=== PATIENT | female | born 1955 | race Two or more races ===

== ENCOUNTER 2020-03-05 13:43 | Outpatient (REF) | payer MEDICAID, SELFPAY ==
--- NOTE | 2020-03-05 13:47 | MM_ITS ---
EXAMINATION: MM SCREENING DIGITAL BREAST TOMOSYNTHESIS, BILATERAL CLINICAL INFORMATION: Screening. Asymptomatic. The lifetime risk of breast cancer based on the Tyrer-Cuzick Model is 5%. COMPARISON: Mammography: 09/16/2018, 08/10/2017, 08/08/2016 TECHNIQUE: Digital breast tomosynthesis is performed in both the craniocaudal and mediolateral oblique views along with computer-aided detection (CAD). Synthesized 2D images are generated from the tomosynthesis. FINDINGS: The breasts are almost entirely fatty (ACR BI-RADS breast composition Category a). Background stromal densities are similar to prior exams. The right breast shows no interval mass or architectural abnormality. There are scattered benign round calcifications, more numerous on right. No suspicious calcifications. The axilla are unremarkable. There is a 4 x 5 mm nodule close to skin posterior 3:30 o'clock position 11 cm from nipple with ill-defined margins. The location may suggest an overlying dermal lesion or an intradermal sebaceous cyst. Patient will be recalled for additional imaging. MM/MM tomosynthesis screening BI IMPRESSION: 1. Left: 5 mm nodule posterior 3:30 o'clock position, close to skin, possibly dermal or intradermal. 2. Right: No mammographic evidence of malignancy. ASSESSMENT: BI-RADS 0: Incomplete - Need Additional Imaging Evaluation RECOMMENDATION: 1. Assess for dermal lesion in the area and obtain images with mole marker if applicable. 2. Targeted ultrasound if warranted after review of the additional views. 3. Radiology department staff will contact the patient for additional imaging. This patient's information was entered into a reminder system with a target due date for their next mammogram.
== END 2020-03-05 13:44 | disposition home or self-care (01) ==
LOC: HO.MAMMO 13:43
PROVIDERS: PCP Internal Medicine; Visit Provider Internal Medicine
DX: Z12.31 Encounter for screening mammogram for malignant neoplasm of breast (principal)
CPT/HCPCS: 77063; 77067

== ENCOUNTER 2020-03-10 11:13 | Inpatient (IN) | payer MEDICAID, SELFPAY ==
[2020-03-10] VITALS (9 sets, daily range): BP systolic 114–160; BP diastolic 55–94; PULSE 111–126; RESP 16–22; TEMP 37.1–37.8; O2SAT 97–100; BMI 41.1
--- NOTE | 2020-03-10 11:52 | XR_ITS ---
EXAMINATION: XR CHEST CLINICAL INFORMATION: Productive cough COMPARISON: None TECHNIQUE: AP portable view of the chest was obtained. FINDINGS: There is a region of parenchymal disease seen at the left base which may be related to atelectasis or pneumonitis versus small amount of pleural fluid. Heart normal size. No evidence of pulmonary edema. No pneumothorax. Degenerative change of shoulders evident. XR/XR chest 1V IMPRESSION: Region of density left base.
--- NOTE | 2020-03-10 11:53 | ECG_ITS ---
Test Reason : TACHYCARDIA Blood Pressure : / mmHG Vent. Rate : 117 BPM Atrial Rate : 117 BPM P-R Int : 140 ms QRS Dur : 084 ms QT Int : 308 ms P-R-T Axes : 039 026 043 degrees QTc Int : 429 ms Sinus tachycardia Otherwise normal ECG No previous ECGs available Referred By: Yue Nassar Electronically Signed By:KEITH VILLARREAL MD
--- NOTE | 2020-03-10 11:59 | ED_ITS ---
HPI - URI/Sore Throat General Chief Complaint: Nausea/Vomiting/Diarrhea <DONTA Hutchinson Last Filed: 03/10/20 17:05> Stated Complaint: vomiting <DONTA Hutchinson Last Filed: 03/10/20 17:05> Time Seen by Provider: 03/10/20 11:46 <DONTA Hutchinson Last Filed: 03/10/20 17:05> Source: patient <DONTA Hutchinson Last Filed: 03/10/20 17:05> Mode of arrival: ambulatory <DONTA Hutchinson Last Filed: 03/10/20 17:05> Limitations: language barrier ( Israeli-speaking) <DONTA Hutchinson Last Filed: 03/10/20 17:05> History of Present Illness HPI Narrative: 65yoF c PMHx of DM and asthma presenting to the ED c c/o productive cough c post-tussive emesis x 3 weeks. denies fevers, dizziness, headaches, bilious emesis, chest pain, shortness of breath, dyspnea on exertion, orthopnea, paresthesias, abdominal pain, dysuria, diarrhea or constipation. Denies recent sick contacts or travel. Denies any other symptom complaints or concerns at this time. <DONTA Hutchinson Last Filed: 03/10/20 17:05> Related Data Home Medications: Home Medications Medication Instructions Recorded Confirmed Blood Pressure Med 25 mg DAILY 03/10/20 Blood Pressure Med DAILY 03/10/20 Cholesterol Med DAILY 03/10/20 Vitamin D3 DAILY 03/10/20 insulin glargine [Lantus U-100 35 unit SUBCUT DAILY 03/10/20 03/10/20 Insulin] metformin 500 mg BID 03/10/20 03/10/20 <DONTA Hutchinson Last Filed: 03/10/20 17:05> Allergies/Adverse Reactions: Allergies Allergy/AdvReac Type Severity Reaction Status Date / Time No Known Allergies Allergy Verified 03/10/20 22:06 <DONTA Hutchinson Last Filed: 03/10/20 17:05> Review of Systems Review of Systems: Constitutional : No Fever, No Chills, No fatigue, No Malaise ENT/Mouth : No sore throat, No runny nose Eyes: No Discharge Cardiovascular : No Chest Pain, No SOB, No orthopnea, No RICHARDS Respiratory : + Cough, + Sputum, No Wheezing, No Smoke Exposure, No Dyspnea Gastrointestinal : No Nausea, No Vomiting, No Diarrhea Genitourinary : No irregular bleeding, No Dysuria, No Urinary Frequency, No Hematuria, No Urinary Incontinence, No Urgency, No Flank Pain, Musculoskeletal : No Myalgia Skin : No rash Neuro : No Headache <DONTA Hutchinson - Last Filed: 03/10/20 17:05> Yes all other systems are reviewed and are negative <DONTA Hutchinson - Last Filed: 03/10/20 17:05> [facility] Past Medical History Attestation statement: The following information was validated with the patient. <DONTA Hutchinson - Last Filed: 03/10/20 17:05> Medical History: Medical History (Updated 03/10/20 @ 20:41 by DONTA Starr) Asthma Diabetes Hyperlipidemia Hypertension <DONTA Hutchinson - Last Filed: 03/10/20 17:05> Surgical History: Surgical History (Updated 03/10/20 @ 20:38 by DONTA Starr) H/O section <DONTA Hutchinson - Last Filed: 03/10/20 17:05> Social History Social History: Social History (Updated 03/10/20 @ 20:39 by DONTA Starr) Alcohol intake: current Alcohol intake frequency: a few times a month Alcohol type: beer Smoking Status: Never smoker Smoked in Last 30 Days: No Use of substances other than those prescribed or required for medical reasons: No Advance Directives: No Advance Directives Information Provided: No <DONTA Hutchinson - Last Filed: 03/10/20 17:05> Physical Exam Vital Signs: Vital Signs: Last Vital Signs Temp 98.9 F 03/10/20 22:19 Pulse 118 H 03/10/20 22:19 Resp 16 03/10/20 22:19 BP 151/55 H 03/10/20 22:19 Pulse Ox 97 03/10/20 22:19 Body Mass Index 41.1 vital signs have been reviewed as normal and appeared to be correct. Blood pressure normal. Heart rate normal. Respiration rate normal. Temperature normal. Oxygen saturation normal. <DONTA Hutchinson - Last Filed: 03/10/20 17:05> Vital Signs: Last Vital Signs Temp 98.9 F 03/10/20 22:19 Pulse 118 H 03/10/20 22:19 Resp 16 03/10/20 22:19 BP 151/55 H 03/10/20 22:19 Pulse Ox 97 03/10/20 22:19 Body Mass Index 41.1 <Lala Dumont NP - Last Filed: 03/10/20 22:20> Vital Signs: Last Vital Signs Temp 98.9 F 03/10/20 22:19 Pulse 118 H 03/10/20 22:19 Resp 16 03/10/20 22:19 BP 151/55 H 03/10/20 22:19 Pulse Ox 97 03/10/20 22:19 Body Mass Index 41.1 <Samantha Hathaway MD - Last Filed: 03/10/20 22:26> Appearance: Alert. Oriented X3. No acute distress. Head: Normal external exam. Normocephalic. Atraumatic. Eyes: PERRLA. EOMI. Conjunctiva and sclera normal. Eyelids normal. ENT: Pharynx normal. Uvula midline. Moist mucous membranes. Neck: Normal inspection. Neck supple. FROM. No adenopathy. No meningeal signs. CVS: Normal heart rate and rhythm. Heart sound normal. No murmurs noted. Pulses normal throughout. Respiratory: No respiratory distress. Painless inspiration. Breath sounds normal. No wheezes/rales/rhonchi noted. Chest nontender. No accessory muscle usage noted or decreased air movement noted. Back: Full range of motion noted. Skin: Skin warm and dry. Normal skin color. Normal skin turgor. No rashes/lesions/lacerations noted. Extremities: +1 b/l pitting edema of lower extremity. Extremities exhibit normal range of motion. Extremities nontender. Neuro: Oriented X 3. No motor deficit. No sensory deficit. Reflexes normal. <DONTA Hutchinson - Last Filed: 03/10/20 17:05> Course Course Course Narrative: 11:52AM - 65yoF c PMHx of DM and asthma presenting to the ED c c/o productive cough c post-tussive emesis x 3 weeks. - Concern for PNA vs COVID-19 vs CHF vs PE. - Plan: Labs, CXR, EKG, COVID/RSV/FLU then Re-evaluate. <DONTA Hutchinson - Last Filed: 03/10/20 17:05> I assisted nurse practitioner Tim with the paracentesis. Patient tolerated well the procedure. No complications <Samantha Hathaway MD - Last Filed: 03/10/20 22:26> Reevaluation(s) Reevaluation #1: patient had an elevated white blood cell count and was tachycardic therefore blood cultures and lactic acid ordered at this time. Along with cefepime for possible pneumonia. <DONTA Hutchinson - Last Filed: 03/10/20 17:05> Time: 12:36 <DONTA Hutchinson - Last Filed: 03/10/20 17:05> Reevaluation #2: - patient with anemia. D-dimer elevated. BUN/creatinine at 24/1.51 otherwise all other labs are within normal limits. COVID swab/RSV/ flu negative. - Due to D-dimer being elevated and patient having an elevated creatinine and CT scan of chest without contrast obtained and revealed large volume ascites mo derate size left pleural effusion with left base parenchymal disease likely related to passive atelectasis. Therefore I went back in and explained to the patient that she will need to be tapped. She reports that she is a drinker on the weekends approximately 5-6 beers every weekend. - V/Q scan negative for PE. <DONTA Hutchinson - Last Filed: 03/10/20 17:05> Time: 17:02 <DONTA Hutchinson - Last Filed: 03/10/20 17:05> Reevaluation #3: At this time I am signing out to YA Reeves her and Dr. Samantha Carey's will perform the tap and possibly admit the patient depending on what is obtained from the tap. Patient understands and agrees with this plan. <DONTA Hutchinson - Last Filed: 03/10/20 17:05> Time: 17:04 <DONTA Hutchinson - Last Filed: 03/10/20 17:05> Procedures Paracentesis Time Out Performed: Yes <Samantha Hathaway MD - Last Filed: 03/10/20 22:26> Local Anesthetic: lidocaine 2% <Samantha Hathaway MD - Last Filed: 03/10/20 22:26> Amount of anesthesia used (mL): 10 <Samantha Hathaway MD - Last Filed: 03/10/20 22:26> Fluid: bloody <Samantha Hathaway MD - Last Filed: 03/10/20 22:26> Post Procedure Exam: awake, alert and normal BP <Samantha Hathaway MD - Last Filed: 03/10/20 22:26> Patient Tolerated Procedure: well and no complications <Samantha Hathaway MD - Last Filed: 03/10/20 22:26> Complications: none <Samantha Hathaway MD - Last Filed: 03/10/20 22:26> MDM - URI/Sore Throat Medical Records Attestation: I reviewed the patient's medical records. <DONTA Hutchinson - Last Filed: 03/10/20 17:05> Lab Data Attestation: I reviewed the patient's lab results. <DONTA Hutchinson - Last Filed: 03/10/20 17:05> Result diagrams: : 03/10/20 12:08 03/10/20 12:08 <DONTA Hutchinson - Last Filed: 03/10/20 17:05> Labs: Lab Results 03/10/20 03/10/20 03/10/20 Range/Units 12:08 12:08 12:08 WBC 18.1 H (4.8-10.8) X10*3/uL RBC 3.14 L (4.20-5.50) X10*6/uL Hgb 8.8 L (12.0-16.0) g/dl Hct 27.7 L (37-47) % MCV 88.2 (80-98) fL MCH 28.0 (27.0-33.0) pg MCHC 31.8 (31.0-35.0) g/dl RDW 15.5 (11.0-16.0) % Plt Count 396 (160-400) X10*3/uL MPV 9.8 (9.4-12.3) fL Immature Gran % (Auto) 0.4 (0.0-0.4) % Neut % (Auto) 79.1 H (45-73) % Lymph % (Auto) 14.0 L (20-40) % [place] % (Auto) 6.1 (2-11) % Eos % (Auto) 0.2 (0-4) % Baso % (Auto) 0.2 (0-2) % Lymph # (Auto) 2.5 (1.2-4.9) X10*3/uL [place] # (Auto) 1.1 (0.1-1.2) X10*3/uL Eos # (Auto) 0.0 (0.0-0.4) X10*3/uL Baso # (Auto) 0.0 (0.0-0.2) X10*3/uL Abs Immat Gran (auto) 0.07 H (0.00-0.03) X10*3/uL Absolute Neuts (auto) 14.4 H (2.0-8.3) X10*3/uL Absolute Nucleated RBC 0.000 (0.0-0.012) X10*3/uL Nucleated RBC % (auto) 0.0 (0.0-0.2) /100WBC PT 13.9 H (10.8-13.0) SEC INR 1.2 H (0.9-1.1) D-Dimer 4184 NG/ML Sodium 141 (135-145) mmol/L Potassium 3.7 (3.3-5.1) mmol/l Chloride 100 (96-108) mmol/L Carbon Dioxide 28 (22-29) mmol/L Anion Gap 17 (12-20) BUN 24 H (9-16) mg/dL Creatinine 1.51 H (0.5-1.4) mg/dL Estim Creat Clear Calc 44.7 Estimated GFR 35 Random Glucose 108 (60-115) mg/dL Lactic Acid (0.5-2.0) mmol/L Calcium 8.8 (8.4-10.2) mg/dL Magnesium 2.1 (1.6-2.6) mg/dL Iron 16 L (30-160) mcg/dL TIBC 137 L (228-428) mcg/dL % Saturation 12 L (15-50) % Unsat Iron Binding 121 ug/dL Ferritin 811 H (10-250) ng/mL Total Bilirubin 0.5 (0.0-1.0) mg/dL Direct Bilirubin 0.2 (0.0-0.5) mg/dL AST 18 (5-31) U/L ALT 13 (0-31) U/L Alkaline Phosphatase 64 (39-117) U/L B-Natriuretic Peptide (<100) pg/mL Total Protein 7.6 (6.5-8.0) g/dL Albumin 3.7 (3.5-5.0) g/dL Procalcitonin ng/mL Peritoneal WBC X10*3/uL Peritoneal RBC X10*6/uL Periton Neutrophils % Periton Lymphocytes % Peritoneal Monocytes % Coronavirus (PCR) (Negative) Influenza Type A (PCR) (Negative) Influenza Type B (PCR) (Negative) RSV RNA Qual (PCR) (Negative) 03/10/20 03/10/20 03/10/20 Range/Units 12:08 12:08 12:08 WBC (4.8-10.8) X10*3/uL RBC (4.20-5.50) X10*6/uL Hgb (12.0-16.0) g/dl Hct (37-47) % MCV (80-98) fL MCH (27.0-33.0) pg Plt Count (160-400) X10*3/uL MPV (9.4-12.3) fL Immature Gran % (Auto) (0.0-0.4) % Neut % (Auto) (45-73) % Lymph % (Auto) (20-40) % [place] % (Auto) (2-11) % Eos % (Auto) (0-4) % Baso % (Auto) (0-2) % Lymph # (Auto) (1.2-4.9) X10*3/uL [place] # (Auto) (0.1-1.2) X10*3/uL Eos # (Auto) (0.0-0.4) X10*3/uL Baso # (Auto) (0.0-0.2) X10*3/uL Abs Immat Gran (auto) (0.00-0.03) X10*3/uL Absolute Neuts (auto) (2.0-8.3) X10*3/uL Absolute Nucleated RBC (0.0-0.012) X10*3/uL Nucleated RBC % (auto) (0.0-0.2) /100WBC PT (10.8-13.0) SEC INR (0.9-1.1) D-Dimer NG/ML Sodium (135-145) mmol/L Potassium (3.3-5.1) mmol/l Chloride (96-108) mmol/L Carbon Dioxide (22-29) mmol/L Anion Gap (12-20) BUN (9-16) mg/dL Creatinine (0.5-1.4) mg/dL Estim Creat Clear Calc Estimated GFR Random Glucose (60-115) mg/dL Lactic Acid (0.5-2.0) mmol/L Calcium (8.4-10.2) mg/dL Magnesium (1.6-2.6) mg/dL Iron (30-160) mcg/dL TIBC (228-428) mcg/dL % Saturation (15-50) % Unsat Iron Binding ug/dL Ferritin (10-250) ng/mL Total Bilirubin (0.0-1.0) mg/dL Direct Bilirubin (0.0-0.5) mg/dL AST (5-31) U/L ALT (0-31) U/L Alkaline Phosphatase (39-117) U/L B-Natriuretic Peptide < 10 (<100) pg/mL Total Protein (6.5-8.0) g/dL Albumin (3.5-5.0) g/dL Procalcitonin 0.40 ng/mL Peritoneal WBC X10*3/uL Peritoneal RBC X10*6/uL Periton Neutrophils % Periton Lymphocytes % Peritoneal Monocytes % Coronavirus (PCR) NEGATIVE (Negative) Influenza Type A (PCR) NEGATIVE (Negative) Influenza Type B (PCR) NEGATIVE (Negative) RSV RNA Qual (PCR) NEGATIVE (Negative) 03/10/20 03/10/20 Range/Units 14:19 19:51 WBC (4.8-10.8) X10*3/uL RBC (4.20-5.50) X10*6/uL Hgb (12.0-16.0) g/dl Hct (37-47) % MCV (80-98) fL MCH (27.0-33.0) pg MCHC (31.0-35.0) g/dl RDW (11.0-16.0) % Plt Count (160-400) X10*3/uL MPV (9.4-12.3) fL Immature Gran % (Auto) (0.0-0.4) % Neut % (Auto) (45-73) % Lymph % (Auto) (20-40) % [place] % (Auto) (2-11) % Eos % (Auto) (0-4) % Baso % (Auto) (0-2) % Lymph # (Auto) (1.2-4.9) X10*3/uL [place] # (Auto) (0.1-1.2) X10*3/uL Eos # (Auto) (0.0-0.4) X10*3/uL Baso # (Auto) (0.0-0.2) X10*3/uL Abs Immat Gran (auto) (0.00-0.03) X10*3/uL Absolute Neuts (auto) (2.0-8.3) X10*3/uL Absolute Nucleated RBC (0.0-0.012) X10*3/uL Nucleated RBC % (auto) (0.0-0.2) /100WBC PT (10.8-13.0) SEC INR (0.9-1.1) D-Dimer NG/ML Sodium (135-145) mmol/L Potassium (3.3-5.1) mmol/l Chloride (96-108) mmol/L Carbon Dioxide (22-29) mmol/L Anion Gap (12-20) BUN (9-16) mg/dL Creatinine (0.5-1.4) mg/dL Estim Creat Clear Calc Estimated GFR Random Glucose (60-115) mg/dL Lactic Acid 0.9 (0.5-2.0) mmol/L Calcium (8.4-10.2) mg/dL Magnesium (1.6-2.6) mg/dL Iron (30-160) mcg/dL TIBC (228-428) mcg/dL % Saturation (15-50) % Unsat Iron Binding ug/dL Ferritin (10-250) ng/mL Total Bilirubin (0.0-1.0) mg/dL Direct Bilirubin (0.0-0.5) mg/dL AST (5-31) U/L ALT (0-31) U/L Alkaline Phosphatase (39-117) U/L B-Natriuretic Peptide (<100) pg/mL Total Protein (6.5-8.0) g/dL Albumin (3.5-5.0) g/dL Procalcitonin ng/mL Peritoneal WBC 1.867 X10*3/uL Peritoneal RBC 0.018 X10*6/uL Periton Neutrophils 10 % Periton Lymphocytes 72 % Peritoneal Monocytes 18 % Coronavirus (PCR) (Negative) Influenza Type A (PCR) (Negative) Influenza Type B (PCR) (Negative) RSV RNA Qual (PCR) (Negative) <DONTA Hutchinson - Last Filed: 03/10/20 17:05> Lab Results 03/10/20 03/10/20 03/10/20 Range/Units 12:08 12:08 12:08 WBC 18.1 H (4.8-10.8) X10*3/uL RBC 3.14 L (4.20-5.50) X10*6/uL Hgb 8.8 L (12.0-16.0) g/dl Hct 27.7 L (37-47) % MCV 88.2 (80-98) fL MCH 28.0 (27.0-33.0) pg MCHC 31.8 (31.0-35.0) g/dl RDW 15.5 (11.0-16.0) % Plt Count 396 (160-400) X10*3/uL MPV 9.8 (9.4-12.3) fL Immature Gran % (Auto) 0.4 (0.0-0.4) % Neut % (Auto) 79.1 H (45-73) % Lymph % (Auto) 14.0 L (20-40) % [place] % (Auto) 6.1 (2-11) % Eos % (Auto) 0.2 (0-4) % Baso % (Auto) 0.2 (0-2) % Lymph # (Auto) 2.5 (1.2-4.9) X10*3/uL [place] # (Auto) 1.1 (0.1-1.2) X10*3/uL Eos # (Auto) 0.0 (0.0-0.4) X10*3/uL Baso # (Auto) 0.0 (0.0-0.2) X10*3/uL Abs Immat Gran (auto) 0.07 H (0.00-0.03) X10*3/uL Absolute Neuts (auto) 14.4 H (2.0-8.3) X10*3/uL Absolute Nucleated RBC 0.000 (0.0-0.012) X10*3/uL Nucleated RBC % (auto) 0.0 (0.0-0.2) /100WBC PT 13.9 H (10.8-13.0) SEC INR 1.2 H (0.9-1.1) D-Dimer 4184 NG/ML Sodium 141 (135-145) mmol/L Potassium 3.7 (3.3-5.1) mmol/l Chloride 100 (96-108) mmol/L Carbon Dioxide 28 (22-29) mmol/L Anion Gap 17 (12-20) BUN 24 H (9-16) mg/dL Creatinine 1.51 H (0.5-1.4) mg/dL Estim Creat Clear Calc 44.7 Estimated GFR 35 Random Glucose 108 (60-115) mg/dL Lactic Acid (0.5-2.0) mmol/L Calcium 8.8 (8.4-10.2) mg/dL Magnesium 2.1 (1.6-2.6) mg/dL Iron 16 L (30-160) mcg/dL TIBC 137 L (228-428) mcg/dL % Saturation 12 L (15-50) % Unsat Iron Binding 121 ug/dL Ferritin 811 H (10-250) ng/mL Total Bilirubin 0.5 (0.0-1.0) mg/dL Direct Bilirubin 0.2 (0.0-0.5) mg/dL AST 18 (5-31) U/L ALT 13 (0-31) U/L Alkaline Phosphatase 64 (39-117) U/L B-Natriuretic Peptide (<100) pg/mL Total Protein 7.6 (6.5-8.0) g/dL Albumin 3.7 (3.5-5.0) g/dL Procalcitonin ng/mL Peritoneal WBC X10*3/uL Peritoneal RBC X10*6/uL Periton Neutrophils % Periton Lymphocytes % Peritoneal Monocytes % Coronavirus (PCR) (Negative) Influenza Type A (PCR) (Negative) Influenza Type B (PCR) (Negative) RSV RNA Qual (PCR) (Negative) 03/10/20 03/10/20 03/10/20 Range/Units 12:08 12:08 12:08 WBC (4.8-10.8) X10*3/uL RBC (4.20-5.50) X10*6/uL Hgb (12.0-16.0) g/dl Hct (37-47) % MCV (80-98) fL MCH (27.0-33.0) pg MCHC (31.0-35.0) g/dl RDW (11.0-16.0) % Plt Count (160-400) X10*3/uL MPV (9.4-12.3) fL Immature Gran % (Auto) (0.0-0.4) % Neut % (Auto) (45-73) % Lymph % (Auto) (20-40) % [place] % (Auto) (2-11) % Eos % (Auto) (0-4) % Baso % (Auto) (0-2) % Lymph # (Auto) (1.2-4.9) X10*3/uL [place] # (Auto) (0.1-1.2) X10*3/uL Eos # (Auto) (0.0-0.4) X10*3/uL Baso # (Auto) (0.0-0.2) X10*3/uL Abs Immat Gran (auto) (0.00-0.03) X10*3/uL Absolute Neuts (auto) (2.0-8.3) X10*3/uL Absolute Nucleated RBC (0.0-0.012) X10*3/uL Nucleated RBC % (auto) (0.0-0.2) /100WBC PT (10.8-13.0) SEC INR (0.9-1.1) D-Dimer NG/ML Sodium (135-145) mmol/L Potassium (3.3-5.1) mmol/l Chloride (96-108) mmol/L Carbon Dioxide (22-29) mmol/L Anion Gap (12-20) BUN (9-16) mg/dL Creatinine (0.5-1.4) mg/dL Estim Creat Clear Calc Estimated GFR Random Glucose (60-115) mg/dL Lactic Acid (0.5-2.0) mmol/L Calcium (8.4-10.2) mg/dL Magnesium (1.6-2.6) mg/dL Iron (30-160) mcg/dL TIBC (228-428) mcg/dL % Saturation (15-50) % Unsat Iron Binding ug/dL Ferritin (10-250) ng/mL Total Bilirubin (0.0-1.0) mg/dL Direct Bilirubin (0.0-0.5) mg/dL AST (5-31) U/L ALT (0-31) U/L Alkaline Phosphatase (39-117) U/L B-Natriuretic Peptide < 10 (<100) pg/mL Total Protein (6.5-8.0) g/dL Albumin (3.5-5.0) g/dL Procalcitonin 0.40 ng/mL Peritoneal WBC X10*3/uL Peritoneal RBC X10*6/uL Periton Neutrophils % Periton Lymphocytes % Peritoneal Monocytes % Coronavirus (PCR) NEGATIVE (Negative) Influenza Type A (PCR) NEGATIVE (Negative) Influenza Type B (PCR) NEGATIVE (Negative) RSV RNA Qual (PCR) NEGATIVE (Negative) 03/10/20 03/10/20 Range/Units 14:19 19:51 WBC (4.8-10.8) X10*3/uL RBC (4.20-5.50) X10*6/uL Hgb (12.0-16.0) g/dl Hct (37-47) % MCV (80-98) fL MCH (27.0-33.0) pg MCHC (31.0-35.0) g/dl RDW (11.0-16.0) % Plt Count (160-400) X10*3/uL MPV (9.4-12.3) fL Immature Gran % (Auto) (0.0-0.4) % Neut % (Auto) (45-73) % Lymph % (Auto) (20-40) % [place] % (Auto) (2-11) % Eos % (Auto) (0-4) % Baso % (Auto) (0-2) % Lymph # (Auto) (1.2-4.9) X10*3/uL [place] # (Auto) (0.1-1.2) X10*3/uL Eos # (Auto) (0.0-0.4) X10*3/uL Baso # (Auto) (0.0-0.2) X10*3/uL Abs Immat Gran (auto) (0.00-0.03) X10*3/uL Absolute Neuts (auto) (2.0-8.3) X10*3/uL Absolute Nucleated RBC (0.0-0.012) X10*3/uL Nucleated RBC % (auto) (0.0-0.2) /100WBC PT (10.8-13.0) SEC INR (0.9-1.1) D-Dimer NG/ML Sodium (135-145) mmol/L Potassium (3.3-5.1) mmol/l Chloride (96-108) mmol/L Carbon Dioxide (22-29) mmol/L Anion Gap (12-20) BUN (9-16) mg/dL Creatinine (0.5-1.4) mg/dL Estim Creat Clear Calc Estimated GFR Random Glucose (60-115) mg/dL Lactic Acid 0.9 (0.5-2.0) mmol/L Calcium (8.4-10.2) mg/dL Magnesium (1.6-2.6) mg/dL Iron (30-160) mcg/dL TIBC (228-428) mcg/dL % Saturation (15-50) % Unsat Iron Binding ug/dL Ferritin (10-250) ng/mL Total Bilirubin (0.0-1.0) mg/dL Direct Bilirubin (0.0-0.5) mg/dL AST (5-31) U/L ALT (0-31) U/L Alkaline Phosphatase (39-117) U/L B-Natriuretic Peptide (<100) pg/mL Total Protein (6.5-8.0) g/dL Albumin (3.5-5.0) g/dL Procalcitonin ng/mL Peritoneal WBC 1.867 X10*3/uL Peritoneal RBC 0.018 X10*6/uL Periton Neutrophils 10 % Periton Lymphocytes 72 % Peritoneal Monocytes 18 % Coronavirus (PCR) (Negative) Influenza Type A (PCR) (Negative) Influenza Type B (PCR) (Negative) RSV RNA Qual (PCR) (Negative) <Lala Dumont NP - Last Filed: 03/10/20 22:20> Lab Results 03/10/20 03/10/20 03/10/20 Range/Units 12:08 12:08 12:08 WBC 18.1 H (4.8-10.8) X10*3/uL RBC 3.14 L (4.20-5.50) X10*6/uL Hgb 8.8 L (12.0-16.0) g/dl Hct 27.7 L (37-47) % MCV 88.2 (80-98) fL MCH 28.0 (27.0-33.0) pg MCHC 31.8 (31.0-35.0) g/dl RDW 15.5 (11.0-16.0) % Plt Count 396 (160-400) X10*3/uL MPV 9.8 (9.4-12.3) fL Immature Gran % (Auto) 0.4 (0.0-0.4) % Neut % (Auto) 79.1 H (45-73) % Lymph % (Auto) 14.0 L (20-40) % [place] % (Auto) 6.1 (2-11) % Eos % (Auto) 0.2 (0-4) % Baso % (Auto) 0.2 (0-2) % Lymph # (Auto) 2.5 (1.2-4.9) X10*3/uL [place] # (Auto) 1.1 (0.1-1.2) X10*3/uL Eos # (Auto) 0.0 (0.0-0.4) X10*3/uL Baso # (Auto) 0.0 (0.0-0.2) X10*3/uL Abs Immat Gran (auto) 0.07 H (0.00-0.03) X10*3/uL Absolute Neuts (auto) 14.4 H (2.0-8.3) X10*3/uL Absolute Nucleated RBC 0.000 (0.0-0.012) X10*3/uL Nucleated RBC % (auto) 0.0 (0.0-0.2) /100WBC PT 13.9 H (10.8-13.0) SEC INR 1.2 H (0.9-1.1) D-Dimer 4184 NG/ML Sodium 141 (135-145) mmol/L Potassium 3.7 (3.3-5.1) mmol/l Chloride 100 (96-108) mmol/L Carbon Dioxide 28 (22-29) mmol/L Anion Gap 17 (12-20) BUN 24 H (9-16) mg/dL Creatinine 1.51 H (0.5-1.4) mg/dL Estim Creat Clear Calc 44.7 Estimated GFR 35 Random Glucose 108 (60-115) mg/dL Lactic Acid (0.5-2.0) mmol/L Calcium 8.8 (8.4-10.2) mg/dL Magnesium 2.1 (1.6-2.6) mg/dL Iron 16 L (30-160) mcg/dL TIBC 137 L (228-428) mcg/dL % Saturation 12 L (15-50) % Unsat Iron Binding 121 ug/dL Ferritin 811 H (10-250) ng/mL Total Bilirubin 0.5 (0.0-1.0) mg/dL Direct Bilirubin 0.2 (0.0-0.5) mg/dL AST 18 (5-31) U/L ALT 13 (0-31) U/L Alkaline Phosphatase 64 (39-117) U/L B-Natriuretic Peptide (<100) pg/mL Total Protein 7.6 (6.5-8.0) g/dL Albumin 3.7 (3.5-5.0) g/dL Procalcitonin ng/mL Peritoneal WBC X10*3/uL Peritoneal RBC X10*6/uL Periton Neutrophils % Periton Lymphocytes % Peritoneal Monocytes % Coronavirus (PCR) (Negative) Influenza Type A (PCR) (Negative) Influenza Type B (PCR) (Negative) RSV RNA Qual (PCR) (Negative) 03/10/20 03/10/20 03/10/20 Range/Units 12:08 12:08 12:08 WBC (4.8-10.8) X10*3/uL RBC (4.20-5.50) X10*6/uL Hgb (12.0-16.0) g/dl Hct (37-47) % MCV (80-98) fL MCH (27.0-33.0) pg MCHC (31.0-35.0) g/dl RDW (11.0-16.0) % Plt Count (160-400) X10*3/uL MPV (9.4-12.3) fL Immature Gran % (Auto) (0.0-0.4) % Neut % (Auto) (45-73) % Lymph % (Auto) (20-40) % [place] % (Auto) (2-11) % Eos % (Auto) (0-4) % Baso % (Auto) (0-2) % Lymph # (Auto) (1.2-4.9) X10*3/uL [place] # (Auto) (0.1-1.2) X10*3/uL Eos # (Auto) (0.0-0.4) X10*3/uL Baso # (Auto) (0.0-0.2) X10*3/uL Abs Immat Gran (auto) (0.00-0.03) X10*3/uL Absolute Neuts (auto) (2.0-8.3) X10*3/uL Absolute Nucleated RBC (0.0-0.012) X10*3/uL Nucleated RBC % (auto) (0.0-0.2) /100WBC PT (10.8-13.0) SEC INR (0.9-1.1) D-Dimer NG/ML Sodium (135-145) mmol/L Potassium (3.3-5.1) mmol/l Chloride (96-108) mmol/L Carbon Dioxide (22-29) mmol/L Anion Gap (12-20) BUN (9-16) mg/dL Creatinine (0.5-1.4) mg/dL Estim Creat Clear Calc Estimated GFR Random Glucose (60-115) mg/dL Lactic Acid (0.5-2.0) mmol/L Calcium (8.4-10.2) mg/dL Magnesium (1.6-2.6) mg/dL Iron (30-160) mcg/dL TIBC (228-428) mcg/dL % Saturation (15-50) % Unsat Iron Binding ug/dL Ferritin (10-250) ng/mL Total Bilirubin (0.0-1.0) mg/dL Direct Bilirubin (0.0-0.5) mg/dL AST (5-31) U/L ALT (0-31) U/L Alkaline Phosphatase (39-117) U/L B-Natriuretic Peptide < 10 (<100) pg/mL Total Protein (6.5-8.0) g/dL Albumin (3.5-5.0) g/dL Procalcitonin 0.40 ng/mL Peritoneal WBC X10*3/uL Peritoneal RBC X10*6/uL Periton Neutrophils % Periton Lymphocytes % Peritoneal Monocytes % Coronavirus (PCR) NEGATIVE (Negative) Influenza Type A (PCR) NEGATIVE (Negative) Influenza Type B (PCR) NEGATIVE (Negative) RSV RNA Qual (PCR) NEGATIVE (Negative) 03/10/20 03/10/20 Range/Units 14:19 19:51 WBC (4.8-10.8) X10*3/uL RBC (4.20-5.50) X10*6/uL Hgb (12.0-16.0) g/dl Hct (37-47) % MCV (80-98) fL MCH (27.0-33.0) pg MCHC (31.0-35.0) g/dl RDW (11.0-16.0) % Plt Count (160-400) X10*3/uL MPV (9.4-12.3) fL Immature Gran % (Auto) (0.0-0.4) % Neut % (Auto) (45-73) % Lymph % (Auto) (20-40) % [place] % (Auto) (2-11) % Eos % (Auto) (0-4) % Baso % (Auto) (0-2) % Lymph # (Auto) (1.2-4.9) X10*3/uL [place] # (Auto) (0.1-1.2) X10*3/uL Eos # (Auto) (0.0-0.4) X10*3/uL Baso # (Auto) (0.0-0.2) X10*3/uL Abs Immat Gran (auto) (0.00-0.03) X10*3/uL Absolute Neuts (auto) (2.0-8.3) X10*3/uL Absolute Nucleated RBC (0.0-0.012) X10*3/uL Nucleated RBC % (auto) (0.0-0.2) /100WBC PT (10.8-13.0) SEC INR (0.9-1.1) D-Dimer NG/ML Sodium (135-145) mmol/L Potassium (3.3-5.1) mmol/l Chloride (96-108) mmol/L Carbon Dioxide (22-29) mmol/L Anion Gap (12-20) BUN (9-16) mg/dL Creatinine (0.5-1.4) mg/dL Estim Creat Clear Calc Estimated GFR Random Glucose (60-115) mg/dL Lactic Acid 0.9 (0.5-2.0) mmol/L Calcium (8.4-10.2) mg/dL Magnesium (1.6-2.6) mg/dL Iron (30-160) mcg/dL TIBC (228-428) mcg/dL % Saturation (15-50) % Unsat Iron Binding ug/dL Ferritin (10-250) ng/mL Total Bilirubin (0.0-1.0) mg/dL Direct Bilirubin (0.0-0.5) mg/dL AST (5-31) U/L ALT (0-31) U/L Alkaline Phosphatase (39-117) U/L B-Natriuretic Peptide (<100) pg/mL Total Protein (6.5-8.0) g/dL Albumin (3.5-5.0) g/dL Procalcitonin ng/mL Peritoneal WBC 1.867 X10*3/uL Peritoneal RBC 0.018 X10*6/uL Periton Neutrophils 10 % Periton Lymphocytes 72 % Peritoneal Monocytes 18 % Coronavirus (PCR) (Negative) Influenza Type A (PCR) (Negative) Influenza Type B (PCR) (Negative) RSV RNA Qual (PCR) (Negative) <Samantha Hathaway MD - Last Filed: 03/10/20 22:26> Imaging Data Chest x-ray: Attestation: I personally reviewed and interpreted this imaging study as follows: <DONTA Hutchinson - Last Filed: 03/10/20 17:05> CT scan - chest: Attestation: I personally reviewed and interpreted this imaging study as follows: <DONTA Hutchinson - Last Filed: 03/10/20 17:05> My impression: IMPRESSION: Large volume ascites. Moderate size left pleural effusion with left base parenchymal disease likely related to passive atelectasis. Apparent distal esophageal wall thickening for which esophagram or endoscopy would be of help in further evaluation. <DONTA Hutchinson - Last Filed: 03/10/20 17:05> Radiologist's impression: IMPRESSION: Large volume ascites. Moderate size left pleural effusion with left base parenchymal disease likely related to passive atelectasis. Apparent distal esophageal wall thickening for which esophagram or endoscopy would be of help in further evaluation. <DONTA Hutchinson - Last Filed: 03/10/20 17:05> V/Q scan : Attestation: I personally reviewed and interpreted this imaging study as follows: <DONTA Hutchinson - Last Filed: 03/10/20 17:05> Radiologist's impression: IMPRESSION: Normal perfusion scan. <DONTA Hutchinson - Last Filed: 03/10/20 17:05> ECG Data Attestation: I personally reviewed and interpreted this ECG as follows: <DONTA Hutchinson - Last Filed: 03/10/20 17:05> ECG interpretation date: 03/10/20 <DONTA Hutchinson - Last Filed: 03/10/20 17:05> ECG interpretation time: 12:03 <DONTA Hutchinson - Last Filed: 03/10/20 17:05> Interpretation: Sinus tachycardia with a ventricular rate of 117 with a normal WA interval normal QRS duration normal QT / QTC interval. No acute ischemic changes noted. No prior EKGs to compare. <DONTA Hutchinson - Last Filed: 03/10/20 17:05> Critical Care Time Critical Care Time Critical Care Time: Yes <DONTA Hutchinson - Last Filed: 03/10/20 17:05> Total Critical Care Time: 60 <DONTA Hutchinson - Last Filed: 03/10/20 17:05> Attestation: I personally attest to this time spent taking care of the patient <DONTA Hutchinson - Last Filed: 03/10/20 17:05> Discharge Plan Discharge Clinical Impression: Abdominal ascites, Pleural effusion, left <DONTA Hutchinson - Last Filed: 03/10/20 17:05> MCHC (31.0-35.0) g/dl RDW (11.0-16.0) %
[2020-03-10] MEDS: guaiFEN/Codeine SF 200/20/10ML 10 ML LIQUID PO (12:19)
[2020-03-10 12:24] LABS: Basophils Percent Auto 0.2 % (0-2); Eosinophils Percent Auto 0.2 % (0-4); Hematocrit 27.7 % (37-47); Hemoglobin 8.8 g/dl (12.0-16.0); Imm Gran Abs Auto 0.07 X10*3/uL (0.00-0.03); Imm Gran Pct Auto 0.4 % (0.0-0.4); Lymphocytes Absolute Auto 2.5 X10*3/uL (1.2-4.9); Mean Corpuscular HGB Conc 31.8 g/dl (31.0-35.0); Mean Corpuscular Volume 88.2 fL (80-98); Mean Platelet Volume 9.8 fL (9.4-12.3); Monocytes Absolute Auto 1.1 X10*3/uL (0.1-1.2); Monocytes Percent Auto 6.1 % (2-11); Neutrophils Absolute Auto 14.4 X10*3/uL (2.0-8.3); Neutrophils Percent Auto 79.1 % (45-73); Platelet Count 396 X10*3/uL (160-400); Red Blood Count 3.14 X10*6/uL (4.20-5.50); Red Cell Distribution Width 15.5 % (11.0-16.0); White Blood Count 18.1 X10*3/uL (4.8-10.8)
[2020-03-10 12:25] LABS: MANUAL DIFF FLAG NO
[2020-03-10 12:30] LABS: INTERNATIONAL NORM RATIO 1.2 (0.9-1.1); Prothrombin Time 13.9 SEC (10.8-13.0)
[2020-03-10 12:40] LABS: D Dimer 4184 NG/ML
[2020-03-10 12:55] LABS: Alanine Aminotransferase 13 U/L (0-31); Albumin Level 3.7 g/dL (3.5-5.0); Alkaline Phosphatase 64 U/L (39-117); Anion Gap 17 (12-20); Aspartate Amino Transferase 18 U/L (5-31); Bilirubin Direct 0.2 mg/dL (0.0-0.5); Bilirubin Total 0.5 mg/dL (0.0-1.0); Blood Urea Nitrogen 24 mg/dL (9-16); Calcium 8.8 mg/dL (8.4-10.2); Carbon Dioxide 28 mmol/L (22-29); Chloride 100 mmol/L (96-108); Creatinine Clr Calc Pharmacy 44.7; Estimated Glomerular Filt Rate 35; Glucose Random 108 mg/dL (60-115); Magnesium 2.1 mg/dL (1.6-2.6); Potassium 3.7 mmol/l (3.3-5.1); Sodium 141 mmol/L (135-145); Total Protein 7.6 g/dL (6.5-8.0)
[2020-03-10 12:57] LABS: Influenza A PCR NEGATIVE (Negative); Influenza B PCR NEGATIVE (Negative); Resp Syncy Virus RNA Qual PCR NEGATIVE (Negative); SARS COV2 PCR INHOUSE NEGATIVE (Negative)
[2020-03-10 12:58] LABS: B Type Natriuretic Peptide < 10 pg/mL (<100)
--- NOTE | 2020-03-10 13:08 | CT_ITS ---
EXAMINATION: CT CHEST WITHOUT CONTRAST CLINICAL INFORMATION: Pneumonia COMPARISON: Chest x-ray of same day TECHNIQUE: Multidetector volumetric CT imaging of the chest was done. Axial MIP volume rendering provided. Sagittal and coronal reformatted images were obtained. This CT examination was performed using dose optimization techniques as appropriate, variously including the following: *Automated exposure control *Adjustment of mA and/or kV according to patient size (this includes techniques or standardized protocols for targeted exams where dose is matched to indication/reason for exam; i.e. extremities or head) *Use of iterative reconstruction technique DLP: 393.48 mGy-cm FINDINGS: LUNGS: Central airways are patent. No evidence of significant bronchial wall thickening or bronchiectasis. There is some left lower lobe disease present with a moderate size pleural effusion. No suspicious lung nodules appreciated. MEDIASTINUM: Heart normal size. No pericardial effusion. No thoracic aortic aneurysm. No hilar or mediastinal lymphadenopathy appreciated. There appears be some thickening of the distal esophageal wall as well as a small hiatal hernia and esophagram or endoscopy would be of help in further evaluation. PLEURA: There is a moderate size left pleural effusion. AXILLA: No axillary lymphadenopathy appreciated. UPPER ABDOMEN: There is large volume ascites present. OSSEOUS STRUCTURES: No suspicious destructive bony lesions identified. CT/CT chest wo con IMPRESSION: Large volume ascites. Moderate size left pleural effusion with left base parenchymal disease likely related to passive atelectasis. Apparent distal esophageal wall thickening for which esophagram or endoscopy would be of help in further evaluation.
--- NOTE | 2020-03-10 13:08 | NM_ITS ---
EXAMINATION: NM LUNG IMAGE PERFUSION CLINICAL INFORMATION: Elevated d-dimer. Cough. COMPARISON: None TECHNIQUE: Following intravenous administration of 4 mCi of 90 9M technetium MAA, whole body imaging was performed. FINDINGS: There is normal perfusion seen to all segments of both lungs without any focal segmental or nonsegmental defect.. NM/NM pul perfusion IMPRESSION: Normal perfusion scan.
[2020-03-10] MEDS: 0.9 % Sodium Chloride 1,000 ML 999 ML IVCONT (13:29)
[2020-03-10] MEDS: cefEPime HCl 2 GM in 0.9 % Sodium Chloride 50 ML IV (14:23)
[2020-03-10 14:51] LABS: Lactic Acid 0.9 mmol/L (0.5-2.0)
[2020-03-10] MEDS: Lidocaine HCl 2 % MPF 5 ML VIAL INFILTRATI (16:43)
[2020-03-10] MEDS: Lidocaine HCl 2 % MPF 5 ML VIAL SUBCUT (16:43)
--- NOTE | 2020-03-10 18:13 | PC.NURSE ---
1200ml of dark red/ brown drainage removed during paracentesis. pt tolerated procedure well. zurdo sanchez and md poole at bedside throughout.
--- NOTE | 2020-03-10 19:03 | CT_ITS ---
EXAMINATION: CT ABDOMEN AND PELVIS WITHOUT CONTRAST CLINICAL INFORMATION: Ascites COMPARISON: CT chest performed same day TECHNIQUE: Multidetector volumetric imaging was performed from the superior aspect of the liver through the pubic symphysis. Sagittal and coronal reformatted images were obtained on the technologist's workstation. This CT examination was performed using dose optimization techniques as appropriate, variously including the following: *Automated exposure control *Adjustment of mA and/or kV according to patient size (this includes techniques or standardized protocols for targeted exams where dose is matched to indication/reason for exam; i.e. extremities or head) *Use of iterative reconstruction technique DLP: 782 mGy-cm FINDINGS: LUNG BASES: Moderate left pleural effusion small right pleural effusion unchanged compared with CT earlier same day LIVER, GALLBLADDER, AND BILIARY TREE: The liver is normal in size, shape, and attenuation. No focal hepatic lesion or biliary ductal dilatation is present. The gallbladder is unremarkable with no evidence of radiopaque gallstones, gallbladder wall thickening, or obvious pericholecystic inflammatory changes. PERITONEAL CAVITY: Large volume ascites. Suspect omental disease PANCREAS: Unremarkable. SPLEEN: Unremarkable. ADRENAL GLANDS: Unremarkable. KIDNEYS AND URETERS: The kidneys are normal in size, shape, and attenuation. No hydronephrosis, hydroureter, or calculi seen. No perinephric stranding. BLADDER: Unremarkable. GASTROINTESTINAL TRACT: Scattered diverticulosis without diverticulitis. ABDOMINAL WALL: No significant hernia is appreciated. LYMPH NODES: Normal. VASCULAR: Mild calcific atherosclerotic disease. PELVIC VISCERA: Unremarkable. OSSEOUS STRUCTURES: Multilevel spondylosis lumbar sacral spine with degenerative disc changes and facet arthrosis at multiple levels. CT/CT abdomen pelvis wo con IMPRESSION: Large volume ascites with what appears to be omental caking typically caused by metastases
--- NOTE | 2020-03-10 19:44 | PC.NURSE ---
dressing to left lower flank dry intact, no difficulty with breathing sat 100% on room air. pt hr st on the monitor.
[2020-03-10 19:49] LABS: Iron 16 mcg/dL (30-160); Percent Iron Saturation 12 % (15-50); Total Iron Binding Capacity 137 mcg/dL (228-428); Unsaturated Iron Binding 121 ug/dL
[2020-03-10 20:08] LABS: Ferritin 811 ng/mL (10-250)
[2020-03-10 20:21] LABS: MN% 92.9 %; PMN% 7.1 %; RBC Peritoneal Fluid 0.018 X10*6/uL; WBC Peritoneal Fluid 1.867 X10*3/uL
--- NOTE | 2020-03-10 20:29 | PM.IMHP ---
History of Present Illness Date of Service: 03/10/20 <DONTA Starr - Last Filed: 03/10/20 20:52> Chief Complaint: cough, vomiting <DONTA Starr Last Filed: 03/10/20 20:52> this is a 65-year-old Georgian-speaking a history of diabetes hypertension, dyslipidemia asthma who presents to the emergency complaints of Cough and vomiting. She reports 1 month history of cough productive of yellow phlegm. She has no associated fever or chills. Denies sick contacts. She has had 5 days of vomiting. Denies associated abdominal pain, urinary symptoms, diarrhea. She has early satiety and nausea. Workup in the emergency department revealed numerous abnormalities including creatinine of 1.51, leukocytosis of 18.1, H/ H of 8.8/27.7. She was also noted to be persistently tachycardic and EKG confirmed sinus tachycardia. She underwent a chest CT which showed a moderate left-sided pleural effusion as well as large volume ascites. She had paracentesis in the emergency department which drained 1 L which was described as serosanguineous in color. Her D-dimer is elevated and Given persistent tachycardia she had a V/Q scan which showed no evidence of PE. she denies any dark or bloody stools. Given multiple lab abnormalities decision was made to admit her for further workup. <DONTA Starr - Last Filed: 03/10/20 20:52> Review of Systems Review of Systems: Yes all other systems are reviewed and are negative <DONTA Starr Last Filed: 03/10/20 20:52> Constitutional: Constitutional: Denies chills, Denies weight gain and Reports weight loss <DONTA Starr Last Filed: 03/10/20 20:52> ENT: Denies dysphagia <DONTA Starr Last Filed: 03/10/20 20:52> Cardiovascular: Cardiovascular: Denies chest pain, Denies palpitations and Denies dyspnea <DONTA Starr Last Filed: 03/10/20 20:52> Respiratory: Respiratory: Reports cough, Denies pain on inspiration and Denies dyspnea <DONTA Starr Last Filed: 03/10/20 20:52> Gastrointestinal: Gastrointestinal: Denies melena, Denies hematochezia, Denies change in stool character, Denies constipation, Denies dysphagia, Reports early satiety, Denies diarrhea, Reports nausea and Reports vomiting <DONTA Starr - Last Filed: 03/10/20 20:52> Genitourinary: Genitourinary: Denies dysuria, Denies urinary hesitancy and Denies urinary urgency <DONTA Starr - Last Filed: 03/10/20 20:52> Endocrine: Endocrine: Denies palpitations <DONTA Starr - Last Filed: 03/10/20 20:52> [facility] Medical History: Medical History (Updated 03/10/20 @ 20:41 by DONTA Starr) Asthma Diabetes Hyperlipidemia Hypertension <DONTA Starr - Last Filed: 03/10/20 20:52> Functional capacity: independent ambulation <DONTA Starr - Last Filed: 03/10/20 20:52> Surgical History: Surgical History (Updated 03/10/20 @ 20:38 by DONTA Starr) H/O section <DONTA Starr - Last Filed: 03/10/20 20:52> Social History: Social History (Updated 03/10/20 @ 20:39 by DONTA Starr) Alcohol intake: current Alcohol intake frequency: a few times a month Alcohol type: beer Smoking Status: Never smoker Smoked in Last 30 Days: No Use of substances other than those prescribed or required for medical reasons: No Advance Directives: No Advance Directives Information Provided: No <DONTA Starr - Last Filed: 03/10/20 20:52> Meds Allergies/Adverse reactions: Allergies Allergy/AdvReac Type Severity Reaction Status Date / Time No Known Allergies Allergy Verified 03/10/20 22:06 <DONTA Starr - Last Filed: 03/10/20 20:52> Home medications: Home Medications Medication Instructions Recorded Confirmed Type Blood Pressure Med 25 mg DAILY 03/10/20 History Blood Pressure Med DAILY 03/10/20 History Cholesterol Med DAILY 03/10/20 History Vitamin D3 DAILY 03/10/20 History insulin glargine [Lantus U-100 35 unit SUBCUT DAILY 03/10/20 03/10/20 History Insulin] metformin 500 mg BID 03/10/20 03/10/20 History <DONTA Starr - Last Filed: 03/10/20 20:52> Physical Exam Vital Signs and Narrative: Vital Signs: Last Vital Signs Temp 100.1 F 03/10/20 19:42 Pulse 118 H 03/10/20 20:03 Resp 22 H 03/10/20 20:03 BP 149/72 H 03/10/20 20:03 Pulse Ox 97 03/10/20 20:03 Body Mass Index 41.1 <DONTA Starr - Last Filed: 03/10/20 20:52> Const: General: alert and awake <DONTA Starr - Last Filed: 03/10/20 20:52> Nutritional Appearance: well nourished <DONTA Starr Last Filed: 03/10/20 20:52> Orientation/consciousness: patient oriented x3 <DONTA Starr - Last Filed: 03/10/20 20:52> HENMT: Head: Yes normocephalic and Yes atraumatic <DONTA Starr - Last Filed: 03/10/20 20:52> Eyes: Sclerae: sclerae normal <DONTA Starr Last Filed: 03/10/20 20:52> Chest: Chest palpation & inspection: normal inspection of the chest <DONTA Starr Last Filed: 03/10/20 20:52> Resp: Other: diminished breath sounds left base, otherwise clear <DONTA Starr Last Filed: 03/10/20 20:52> Effort & Inspection: normal respiratory effort and no respiratory distress <DONTA Starr - Last Filed: 03/10/20 20:52> Cardio: Rate: tachycardic <DONTA Starr Last Filed: 03/10/20 20:52> Rhythm: regular rhythm <DONTA Starr Last Filed: 03/10/20 20:52> GI: Palpation (GI): Soft to palpation, nontender and Ascites present <DONTA Starr - Last Filed: 03/10/20 20:52> Auscultation: normal bowel sounds <DONTA Starr - Last Filed: 03/10/20 20:52> Skin: General skin exam: no rashes or lesions noted <DONTA Starr - Last Filed: 03/10/20 20:52> Neuro: General: patient oriented x3 <DONTA Starr - Last Filed: 03/10/20 20:52> Cranial nerves: Yes CN's II-XII intact bilaterally and Yes Bilaterally intact EOM present <DONTA Starr Last Filed: 03/10/20 20:52> Extrem: General: Yes normal to inspection <DONTA Starr - Last Filed: 03/10/20 20:52> Results Labs CBC and Chem 7: : 03/10/20 12:08 03/10/20 12:08 <DONTA Starr - Last Filed: 03/10/20 20:52> Labs: Laboratory Results - last 24 hr 03/10/20 03/10/20 03/10/20 12:08 12:08 12:08 MCV 88.2 MCH 28.0 MCHC 31.8 RDW 15.5 Plt Count 396 MPV 9.8 Immature Gran % (Auto) 0.4 Neut % (Auto) 79.1 H Lymph % (Auto) 14.0 L [place] % (Auto) 6.1 Eos % (Auto) 0.2 Baso % (Auto) 0.2 Lymph # (Auto) 2.5 [place] # (Auto) 1.1 Eos # (Auto) 0.0 Baso # (Auto) 0.0 Abs Immat Gran (auto) 0.07 H Absolute Neuts (auto) 14.4 H Absolute Nucleated RBC 0.000 Nucleated RBC % (auto) 0.0 PT 13.9 H INR 1.2 H D-Dimer 4184 Anion Gap 17 Estim Creat Clear Calc 44.7 Estimated GFR 35 Random Glucose 108 Lactic Acid Calcium 8.8 Magnesium 2.1 Iron 16 L TIBC 137 L % Saturation 12 L Unsat Iron Binding 121 Ferritin 811 H Total Bilirubin 0.5 Direct Bilirubin 0.2 AST 18 ALT 13 Alkaline Phosphatase 64 B-Natriuretic Peptide Total Protein 7.6 Albumin 3.7 Procalcitonin Peritoneal WBC Peritoneal RBC Coronavirus (PCR) Influenza Type A (PCR) Influenza Type B (PCR) RSV RNA Qual (PCR) 03/10/20 03/10/20 03/10/20 12:08 12:08 12:08 MCV MCH MCHC RDW Plt Count MPV Immature Gran % (Auto) Neut % (Auto) Lymph % (Auto) [place] % (Auto) Eos % (Auto) Baso % (Auto) Lymph # (Auto) [place] # (Auto) Eos # (Auto) Baso # (Auto) Abs Immat Gran (auto) Absolute Neuts (auto) Absolute Nucleated RBC Nucleated RBC % (auto) PT INR D-Dimer Anion Gap Estim Creat Clear Calc Estimated GFR Random Glucose Lactic Acid Calcium Magnesium Iron TIBC % Saturation Unsat Iron Binding Ferritin Total Bilirubin Direct Bilirubin AST ALT Alkaline Phosphatase B-Natriuretic Peptide < 10 Total Protein Albumin Procalcitonin 0.40 Peritoneal WBC Peritoneal RBC Coronavirus (PCR) NEGATIVE Influenza Type A (PCR) NEGATIVE Influenza Type B (PCR) NEGATIVE RSV RNA Qual (PCR) NEGATIVE 03/10/20 03/10/20 14:19 19:51 MCV MCH MCHC RDW Plt Count MPV Immature Gran % (Auto) Neut % (Auto) Lymph % (Auto) [place] % (Auto) Eos % (Auto) Baso % (Auto) Lymph # (Auto) [place] # (Auto) Eos # (Auto) Baso # (Auto) Abs Immat Gran (auto) Absolute Neuts (auto) Absolute Nucleated RBC Nucleated RBC % (auto) PT INR D-Dimer Anion Gap Estim Creat Clear Calc Estimated GFR Random Glucose Lactic Acid 0.9 Calcium Magnesium Iron TIBC % Saturation Unsat Iron Binding Ferritin Total Bilirubin Direct Bilirubin AST ALT Alkaline Phosphatase B-Natriuretic Peptide Total Protein Albumin Procalcitonin Peritoneal WBC 1.867 Peritoneal RBC 0.018 Coronavirus (PCR) Influenza Type A (PCR) Influenza Type B (PCR) RSV RNA Qual (PCR) <DONTA Starr - Last Filed: 03/10/20 20:52> Imaging Radiologist's Impressions: Impressions Chest X-Ray 03/10/20 11:52 IMPRESSION: Region of density left base. Chest CT 03/10/20 13:08 IMPRESSION: Large volume ascites. Moderate size left pleural effusion with left base parenchymal disease likely related to passive atelectasis. Apparent distal esophageal wall thickening for which esophagram or endoscopy would be of help in further evaluation. Pulmonary Perfusion Imaging 03/10/20 13:08 IMPRESSION: Normal perfusion scan. <DONTA Starr - Last Filed: 03/10/20 20:52> Assessment and Plan (1) Abdominal ascites: Status: Acute <DONTA Starr - Last Filed: 03/10/20 20:52> (2) Pleural effusion, left: Status: Acute <DONTA Starr - Last Filed: 03/10/20 20:52> (3) Diabetes: Status: Acute <DONTA Starr - Last Filed: 03/10/20 20:52> (4) Anemia: Status: Acute <DONTA Starr - Last Filed: 03/10/20 20:52> (5) Leukocytosis: Status: Acute <DONTA Starr - Last Filed: 03/10/20 20:52> this is a 65-year-old Georgian-speaking female with history of diabetes, hypertension, dyslipidemia, asthma who presents to the emergency department with cough and vomiting found to have abdominal ascites and multiple lab abnormalities sirs patient meets sirs criteria with leukocytosis, tachycardia no source of infection yet identified. CT shows no pna despite cough. UA pending Fluid studies pending, although no abdominal pain, less likely sbp Empiric abx given in ED lacid wnl New onset ascites s/p paracentesis in the ED, 1L serosang fluid removed LFTs wnl follow-up fluids studies left pleural effusion no shortness of breath, hypoxia EDILBERTO creatinine 1.51 with baseline 1 Gentle IVF Follow renal function anemia check iron studies, fecal occult follow cbc esophageal thickening seen on CT scan no dysphagia consider further imaging diabetes SSI, POC cough imaging negative symptomatic tx med rec pending DVT prophylaxis- mechanical devices Code status -full code This case was discussed with Dr. Mcdonald <DONTA Starr - Last Filed: 03/10/20 20:52>
[2020-03-10 20:42] LABS: BF Shift QC OK YES; Lymphocyte Peritoneal Fl 72 %; Man Diluent Bkgrd OK YES; Monocytes Peritoneal Fl 18 %; Neutrophils Peritoneal Fluid 10 %
--- NOTE | 2020-03-10 23:38 | PM.EVENT ---
Event Note Date of Service: 03/10/20 Event Note: admission note: 65 y/o female with PMHX of HTN, HLP, DM and asthma who presented from home due to persistent cough. To be admitted due to new onset ascites associated with left pleural effusion which raises the concern for possible malignancy per imaging findings. Assessment/Plan: 1-New onset ascites s/p LP: CT abdomen showing omental caking concerning for possible malignancy Follow up CA 19-9 and CA 125 tumor markers Follow up cytology studies and rest of LP studies No need to continue with antbx given there is no source of infection. Leukocytosis likely reactive Hematology/Oncology consult in the am 2-Iron deficiency anemia: Follow up rest of anemia work up Follow up repeat CBC Transfuse if Hgb <7 Rest of the the plan as discussed with DONTA Huffman per H/P
[2020-03-11] VITALS (7 sets, daily range): BP systolic 127–160; BP diastolic 58–77; PULSE 109–115; RESP 18–20; TEMP 36.1–37.2; O2SAT 94–100
--- NOTE | 2020-03-11 | US_ITS ---
EXAMINATION: US VENOUS ULTRASOUND WITH DOPPLER LOWER EXTREMITY, BILATERAL CLINICAL INFORMATION: Elevated D-dimer. Malignancy. Evaluate for deep vein thrombosis. COMPARISON: None TECHNIQUE: Ultrasound of the deep veins is performed from the hip to the calf with compression sonography and color and pulse Doppler assessment. Spectral analysis with color-flow imaging is performed. FINDINGS: The common femoral vein is compressible and exhibits a normal phasic waveform, bilaterally; this suggests that the iliac veins are widely patent above. Within each proximal thigh, the visualized profunda femoris vein is patent. The visualized greater saphenous veins and saphenofemoral junctions are normal. Superficial femoral vein is patent in the proximal, mid and distal aspect of each thigh. Popliteal vein appears normal to the level of the trifurcation, bilaterally, and the visualized calf veins are normal. Within the left popliteal fossa, there is a 6.5 x 1.4 x 3.3 cm Parra's cyst. US/US venous duplex LE IMPRESSION: * No evidence of deep vein thrombosis in either lower extremity. * Within the left popliteal fossa, there is a 6.5 x 1.4 x 3.3 cm Parra's cyst.
[2020-03-11 00:33] LABS: Glucose, Whole Blood 32 mg/dL (60-115)
[2020-03-11 00:33] LABS: Glucose, Whole Blood 33 mg/dL (60-115)
[2020-03-11 00:45] LABS: MANUAL DIFF FLAG NO
[2020-03-11 00:46] LABS: Basophils Percent Auto 0.2 % (0-2); Eosinophils Percent Auto 0.2 % (0-4); Hematocrit 26.3 % (37-47); Hemoglobin 8.2 g/dl (12.0-16.0); Imm Gran Abs Auto 0.06 X10*3/uL (0.00-0.03); Imm Gran Pct Auto 0.4 % (0.0-0.4); Lymphocytes Absolute Auto 2.5 X10*3/uL (1.2-4.9); Lymphocytes Percent Auto 15.4 % (20-40); Mean Corpuscular HGB Conc 31.2 g/dl (31.0-35.0); Mean Corpuscular Hemoglobin 27.7 pg (27.0-33.0); Mean Corpuscular Volume 88.9 fL (80-98); Mean Platelet Volume 9.3 fL (9.4-12.3); Monocytes Absolute Auto 1.2 X10*3/uL (0.1-1.2); Monocytes Percent Auto 7.3 % (2-11); Neutrophils Absolute Auto 12.3 X10*3/uL (2.0-8.3); Neutrophils Percent Auto 76.5 % (45-73); Platelet Count 343 X10*3/uL (160-400); Red Blood Count 2.96 X10*6/uL (4.20-5.50); Red Cell Distribution Width 15.4 % (11.0-16.0); White Blood Count 16.1 X10*3/uL (4.8-10.8)
[2020-03-11] MEDS: Lactated Ringers 1,000 ML 80 ML IVCONT ×2 (00:46→12:11)
[2020-03-11] MEDS: 0.9 % Sodium Chloride Flush 3 ML SYRINGE IVFLUSH (00:50)
[2020-03-11] MEDS: Flu Vacc QS2020-21(6mos up)/PF 0.5 ML SYRINGE IM (00:54)
[2020-03-11 01:12] LABS: Glucose, Whole Blood 41 mg/dL (60-115)
--- NOTE | 2020-03-11 01:20 | MHC.PIE ---
P.POC 33 I.PT WITH POC OF 33.ALERT AND ORIENTED,ASYMPTOMATIC.SNACK TAKEN.REPEAT POC 41.TAKING SECOND SNACK. UPDATED. STATES TO RECHECK POC IN 5 MINUTES..REPEAT POC=62. UPDATED.STATES OK TO JUST GIVE OJ.PT TAKING SNACK,OJ WITHOUT DIFF.IV FLUIDS INFUSING ORDERED. E.CONT TO MONITOR.
[2020-03-11 01:48] LABS: Glucose, Whole Blood 62 mg/dL (60-115)
[2020-03-11] MEDS: Throat Lozenge, Medicated LOZENGE 1 LOZENGE MUCOUS MEM (03:02)
[2020-03-11 07:09] LABS: Basophils Percent Auto 0.2 % (0-2); Eosinophils Percent Auto 0.1 % (0-4); Hematocrit 27.2 % (37-47); Hemoglobin 8.5 g/dl (12.0-16.0); Imm Gran Abs Auto 0.09 X10*3/uL (0.00-0.03); Imm Gran Pct Auto 0.5 % (0.0-0.4); Lymphocytes Absolute Auto 1.7 X10*3/uL (1.2-4.9); Lymphocytes Percent Auto 10.3 % (20-40); MANUAL DIFF FLAG SCAN; Mean Corpuscular HGB Conc 31.3 g/dl (31.0-35.0); Mean Corpuscular Hemoglobin 27.9 pg (27.0-33.0); Mean Corpuscular Volume 89.2 fL (80-98); Mean Platelet Volume 10.8 fL (9.4-12.3); Monocytes Absolute Auto 0.9 X10*3/uL (0.1-1.2); Monocytes Percent Auto 5.7 % (2-11); Neutrophils Absolute Auto 13.7 X10*3/uL (2.0-8.3); Neutrophils Percent Auto 83.2 % (45-73); PLT CLUMP 1; Red Blood Count 3.05 X10*6/uL (4.20-5.50); Red Cell Distribution Width 15.5 % (11.0-16.0); SCAN SMEAR FLAG 1
[2020-03-11 07:11] LABS: Glucose Peritoneal Fluid 31; Total Protein Peritoneal Fluid 6.1
[2020-03-11 07:13] LABS: Albumin Peritoneal Fluid 3.4
[2020-03-11 07:14] LABS: Creatinine Peritoneal Fluid 1.4; LDH Peritoneal Fluid 754
[2020-03-11 07:15] LABS: Amylase Peritoneal Fluid 210
[2020-03-11 07:37] LABS: Glucose, Whole Blood 200 mg/dL (60-115)
[2020-03-11 07:42] LABS: White Blood Count 16.4 X10*3/uL (4.8-10.8)
[2020-03-11 07:43] LABS: SLIDE REVIEW VERIFIED
[2020-03-11 07:50] LABS: Anion Gap 19 (12-20); Blood Urea Nitrogen 24 mg/dL (9-16); Calcium 8.3 mg/dL (8.4-10.2); Carbon Dioxide 24 mmol/L (22-29); Chloride 102 mmol/L (96-108); Creatinine Clr Calc Pharmacy 58.2; Estimated Glomerular Filt Rate 47; Glucose Random 207 mg/dL (60-115); Potassium 3.9 mmol/l (3.3-5.1); Sodium 141 mmol/L (135-145)
[2020-03-11] MEDS: Insulin Lispro 100 UNIT/ML 3 ML VIAL SUBCUT (08:19)
--- NOTE | 2020-03-11 09:56 | HO.PM.IMPN ---
Subjective Subjective Date of Service: 03/11/20 Interval History: nausea and vomitting improved Cardiovascular Cardiovascular: Reports no additional cardiovascular complaints Respiratory Respiratory: Reports no additional respiratory complaints Physical Exam Vital Signs: Vital Signs: Last Vital Signs Temp 97.0 F 03/11/20 07:10 Pulse 110 H 03/11/20 07:10 Resp 18 03/11/20 07:10 BP 127/58 L 03/11/20 07:10 Pulse Ox 98 03/11/20 07:10 Body Mass Index 41.1 General: AO X 3, no acute distress Resp: CTA bilateral CVS: S1,S2,RRR GI: soft, non tender, non distended Neuro: motor grossly intact Psych: appropriate affect Objective Data Current Medications Generic Name Dose Route Start Last Admin Trade Name Freq PRN Reason Stop Dose Admin Acetaminophen 650 mg 03/10/20 23:36 Acetaminophen 325 Mg Tablet PO Q6H PRN Pain, Mild (Pain Scale 1-3) Docusate Sodium 100 mg 03/10/20 23:36 Docusate Sodium 100 Mg Capsule PO DAILY PRN Constipation Guaifenesin 5 ml 03/10/20 23:36 Guaifenesin 100 Mg/5 Ml Liquid PO Q6H PRN Cough Lactated Ringer's 1,000 mls @ 80 mls/hr 03/10/20 23:36 03/11/20 00:46 Lr IVCONT 80 mls/hr .[id number] [facility] Administration Insulin Human Lispro 0 unit 03/10/20 23:36 03/11/20 08:19 Insulin Lispro 100 Unit/Ml 3 Ml Vial SUBCUT 2 unit QIDACHS [facility] Administration Protocol Ondansetron HCl 4 mg 03/10/20 23:36 Ondansetron Hcl 4 Mg/2 Ml Vial IVPUSH Q8H PRN Nausea and Vomiting Pharmacy Consult 1 each 03/10/20 18:48 Consult Rx Perform Med Rec MISCELLANE ONCE PRN Consult order Sodium Chloride 3 ml 03/11/20 00:00 03/11/20 08:20 0.9 % Sodium Chloride Flush 3 Ml Syringe IVFLUSH Not Given QSHIFT [facility] Labs CBC & Chem 7: 03/11/20 06:02 03/11/20 06:02 Microbiology Microbiology Results: Microbiology 03/10/20 19:51 Abdominal Fluid Gram Stain - Final 03/10/20 19:51 Abdominal Fluid Routine Culture - Preliminary No growth to date. Assessment and Plan (1) Abdominal ascites: Status: Acute (2) Diabetes: Status: Acute (3) Pleural effusion, left: Status: Acute (4) Asthma: Status: Acute (5) EDILBERTO (acute kidney injury): Status: Acute Assessment and Plan: 65F presented with nausea, vomitting, abdominal distension, and weight loss. found to have ascites and omental caking. ascites supsected malignant, SAAG<1.1, lymphocytes, omental caking on CT follow up cytology, ca125, likely ovarian, although does have esophogeal thickening on CT follow up oncology DM with hypoglycemia resolved, monitor EDILBERTO resolved with hydration
[2020-03-11 11:29] LABS: Glucose, Whole Blood 141 mg/dL (60-115)
--- NOTE | 2020-03-11 14:38 | P.CNHO_ITS ---
Subjective - Subjective Chief complaint: She is a 65 year old woman admitted with ascites, omental caking Patient: new to practice Consult date: 03/11/20 Primary Care Provider: Nallely Chicas MD HPI - Consult Narrative Reason for consult: New onset ascites Narrative: Marlin Alfaro is a 65 year old female Review of Systems - Eyes Reports other - ENT Reports other - Cardiovascular Reports generalized swelling - Respiratory Reports chest congestion, Reports cough - Gastrointestinal Reports abdominal pain, Reports bloating - Genitourinary Reports other - Musculoskeletal Reports muscle weakness - Integumentary/Breasts Skin/Breast: Reports other - Neurologic Reports other - Psychiatric Reports other [facility] Medical History: Medical History (Last Reviewed 03/11/20 @ 02:45 by Emeli Liz, RN) Asthma Diabetes Hyperlipidemia Hypertension Functional capacity: independent ambulation Surgical History: Surgical History (Last Reviewed 03/11/20 @ 02:45 by Emeli Liz, YAMILE) H/O section Smoking status: Never smoker Home Medications and Allergies Current Medications: Current Medications Generic Name Dose Route Start Last Admin Trade Name Freq PRN Reason Stop Dose Admin Acetaminophen 650 mg 03/10/20 23:36 Acetaminophen 325 Mg Tablet PO Q6H PRN Pain, Mild (Pain Scale 1-3) Docusate Sodium 100 mg 03/10/20 23:36 Docusate Sodium 100 Mg Capsule PO DAILY PRN Constipation Guaifenesin 5 ml 03/10/20 23:36 Guaifenesin 100 Mg/5 Ml Liquid PO Q6H PRN Cough Lactated Ringer's 1,000 mls @ 80 mls/hr 03/10/20 23:36 03/11/20 12:11 Lr IVCONT 80 mls/hr .[id number] CLAUDY Administration Insulin Human Lispro 0 unit 03/10/20 23:36 03/11/20 11:50 Insulin Lispro 100 Unit/Ml 3 Ml Vial SUBCUT Not Given QIDACHS [facility] Protocol Ondansetron HCl 4 mg 03/10/20 23:36 Ondansetron Hcl 4 Mg/2 Ml Vial IVPUSH Q8H PRN Nausea and Vomiting Pharmacy Consult 1 each 03/10/20 18:48 Consult Rx Perform Med Rec MISCELLANE ONCE PRN Consult order Sodium Chloride 3 ml 03/11/20 00:00 03/11/20 08:20 0.9 % Sodium Chloride Flush 3 Ml Syringe IVFLUSH Not Given QSHIFT [facility] Home Medications Medication Instructions Recorded Confirmed Type Blood Pressure Med 25 mg DAILY 03/10/20 History Blood Pressure Med DAILY 03/10/20 History Cholesterol Med DAILY 03/10/20 History Vitamin D3 DAILY 03/10/20 History insulin glargine [Lantus U-100 35 unit SUBCUT DAILY 03/10/20 03/10/20 History Insulin] metformin 500 mg BID 03/10/20 03/10/20 History Allergies Allergy/AdvReac Type Severity Reaction Status Date / Time No Known Allergies Allergy Verified 03/10/20 22:06 Physical Exam Vital signs: Vital Signs Temp 97.6 F 03/11/20 11:23 Pulse 109 H 03/11/20 11:23 Resp 18 03/11/20 11:23 BP 159/76 H 03/11/20 11:23 Pulse Ox 99 03/11/20 11:23 Intake & Output 03/10/20 03/11/20 03/11/20 18:59 06:59 18:59 Intake Total 1050 / 1450 400 / 1450 1257.333 / 1257.333 Output Total 100 / 100 Balance 1050 / 1350 300 / 1350 1257.333 / 1257.333 Urine Output (Average ml/kg/hr) 0.08 0.08 Intake: Intake, Oral Amount 400 / 400 360 / 360 Intake, IV Amount 1050 / 1050 897.333 / 897.333 cefEPime HCl 2 gm In 0.9 % 50 / 50 Sodium Chloride 50 ml @ 100 mls /hr IV ONCE ONE Rx#:[id number] 0.9 % Sodium Chloride 1,000 ml 1000 / 1000 @ 999 mls/hr IVCONT .Q1H1M ONE Rx#:[id number] Lactated Ringers 1,000 ml @ 80 897.333 / 897.333 mls/hr IVCONT .[id number] [facility] Rx#: [id number] Output: Output, Urine Amount 100 / 100 Other: Breakfast % Eaten 100% Lunch % Eaten 100% Weight 108.862 kg Weight 108.862 kg - Constitutional Present: no acute distress - Routine HEENT Exam Head: Present: atraumatic - Routine Respiratory Exam Present: decreased breath sounds - Routine Cardiovascular Exam Cardiovascular: Present: RRR - Routine Abdominal Exam Present: soft, nontender - Routine Rectal Exam Patient deferred: visual exam - Routine Extremities Exam Present: full ROM, nontender Hem/Onc Consult Result - Labs CBC & Chem 7: 03/11/20 06:02 03/11/20 06:02 Labs: Short CBC 03/11/20 03/11/20 03/11/20 Range/Units 00:14 00:37 06:02 WBC Cancelled 16.1 H 16.4 H Hgb Cancelled 8.2 L 8.5 L Hct Cancelled 26.3 L 27.2 L Plt Count Cancelled 343 TNP BMP 03/11/20 06:02 Sodium 141 Potassium 3.9 Chloride 102 Carbon Dioxide 24 BUN 24 H Creatinine 1.16 Calcium 8.3 L Procedures - Paracentesis Indication: Ascites Assessment and Plan (1) Abdominal ascites Start date: 03/11/20 (The worry is malignancy likely ovarian. Will await cy tology, CA125.t ) Status: Acute
[2020-03-11] MEDS: guaiFENesin 100 MG/5 ML LIQUID PO (15:48)
--- NOTE | 2020-03-11 16:25 | MHC.CM.PN ---
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 PT REPORTS HE IS INDEPENDENT WITH ALL CARE AND MOBILITY AND CONTINUES TO WORK. PT REPORTS SHE HAS NO SERVICES AND NO DME. PT DOES NOT HAVE A HCP AND DECLINES TO COMPLETE ONE TODAY. PCP ON FILE CURRENT DC PLAN IS HOME WITH NO SERVICES PT WILL SELF ARRANGE TRANSPORT
[2020-03-11 17:06] LABS: Glucose, Whole Blood 136 mg/dL (60-115)
[2020-03-11 20:41] LABS: Glucose, Whole Blood 138 mg/dL (60-115)
[2020-03-12] MEDS: Lactated Ringers 1,000 ML 80 ML IVCONT ×2 (01:08→12:09)
[2020-03-12 04:00] VITALS: BP 155/81; PULSE 112; RESP 18; TEMP 36.8; O2SAT 97
[2020-03-12 07:19] LABS: Glucose, Whole Blood 109 mg/dL (60-115)
[2020-03-12 07:39] VITALS: BP 137/65; PULSE 104; RESP 18; TEMP 36.4; O2SAT 98
[2020-03-12 11:24] VITALS: BP 130/97; PULSE 113; RESP 18; TEMP 37; O2SAT 99
[2020-03-12 11:26] LABS: Glucose, Whole Blood 142 mg/dL (60-115)
[2020-03-12 11:37] VITALS: BMI 41.1
[2020-03-12 15:15] VITALS: BP 121/75; PULSE 99; RESP 19; TEMP 36.3; O2SAT 98
--- NOTE | 2020-03-12 15:19 | HO.PM.IMPN ---
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 services d/w her daughter on the phone in her room pt reports no abd pain ROS General - no fevers or chills Cardiovascular - no chest pain Respiratory - no shortness of breath or cough Abdominal- no abdominal pain, nausea, vomiting, diarrhea Physical Exam Vital Signs: Vital Signs: Last Vital Signs Temp 97.4 F 03/12/20 15:15 Pulse 99 03/12/20 15:15 Resp 19 03/12/20 15:15 BP 121/75 03/12/20 15:15 Pulse Ox 98 03/12/20 15:15 Body Mass Index 41.1 General - no acute distress, appears comfortable Cardiovascular - regular rate and rhythm, S1-S2 Lungs - normal respiratory effort, clear to auscultation bilaterally, no wheezing Abdomen - soft, nontender, no rebound or guarding Extremities - no edema bilaterally Neuro - awake and alert, no focal deficits Objective Data Current Medications Generic Name Dose Route Start Last Admin Trade Name Freq PRN Reason Stop Dose Admin Acetaminophen 650 mg 03/10/20 23:36 Acetaminophen 325 Mg Tablet PO Q6H PRN Pain, Mild (Pain Scale 1-3) Docusate Sodium 100 mg 03/10/20 23:36 Docusate Sodium 100 Mg Capsule PO DAILY PRN Constipation Guaifenesin 5 ml 03/10/20 23:36 03/11/20 15:48 Guaifenesin 100 Mg/5 Ml Liquid PO 5 ml Q6H PRN Administration Cough Lactated Ringer's 1,000 mls @ 80 mls/hr 03/10/20 23:36 03/12/20 12:09 Lr IVCONT 80 mls/hr .[id number] CLAUDY Administration Insulin Human Lispro 0 unit 03/10/20 23:36 03/12/20 11:29 Insulin Lispro 100 Unit/Ml 3 Ml Vial SUBCUT Not Given QIDACHS [facility] Protocol Ondansetron HCl 4 mg 03/10/20 23:36 Ondansetron Hcl 4 Mg/2 Ml Vial IVPUSH Q8H PRN Nausea and Vomiting Pharmacy Consult 1 each 03/10/20 18:48 Consult Rx Perform Med Rec MISCELLANE ONCE PRN Consult order Sodium Chloride 3 ml 03/11/20 00:00 03/12/20 07:45 0.9 % Sodium Chloride Flush 3 Ml Syringe IVFLUSH Not Given QSHIFT CLAUDY Labs CBC & Chem 7: 03/12/20 15:37 03/12/20 15:37 Microbiology Microbiology Results: Microbiology 03/10/20 19:51 Abdominal Fluid Gram Stain - Final 03/10/20 19:51 Abdominal Fluid Routine Culture - Preliminary No growth to date. 03/10/20 14:22 Blood - Venous Blood Culture - Preliminary No growth after 24 hours. 03/10/20 14:19 Blood - Venous Blood Culture - Preliminary No growth after 24 hours. Assessment and Plan (1) Abdominal ascites: Status: Acute Assessment and Plan: This is a 65 yo F admitted for suspected malignant ascites and further work up 1. Suspected Malignant ascites cytology pending tumor marker pending oncology on board -- further recommendations pending results above noted Mammogram findings -- ultrasound ordered but cannot be done inpatient (per radiology) -- will need f/u with outpatient repeat mammogram + ultrasound if needed 2. EDILBERTO prerenal and resolved with hydration 3. DM with hypoglycemia sliding scale Full Code DVT pptx, mechanical
[2020-03-12 16:25] LABS: Hematocrit 24.7 % (37-47); Hemoglobin 7.6 g/dl (12.0-16.0); Mean Corpuscular HGB Conc 30.8 g/dl (31.0-35.0); Mean Corpuscular Hemoglobin 27.6 pg (27.0-33.0); Mean Corpuscular Volume 89.8 fL (80-98); Mean Platelet Volume 10.1 fL (9.4-12.3); Platelet Count 366 X10*3/uL (160-400); Red Blood Count 2.75 X10*6/uL (4.20-5.50); Red Cell Distribution Width 15.5 % (11.0-16.0); White Blood Count 12.5 X10*3/uL (4.8-10.8)
[2020-03-12 16:29] LABS: Glucose, Whole Blood 117 mg/dL (60-115)
[2020-03-12 16:38] LABS: Anion Gap 12 (12-20); Blood Urea Nitrogen 17 mg/dL (9-16); Calcium 8.1 mg/dL (8.4-10.2); Carbon Dioxide 28 mmol/L (22-29); Chloride 103 mmol/L (96-108); Creatinine Clr Calc Pharmacy 82.5; Estimated Glomerular Filt Rate > 60; Glucose Random 118 mg/dL (60-115); Potassium 4.2 mmol/l (3.3-5.1); Sodium 139 mmol/L (135-145)
[2020-03-12 19:11] VITALS: BP 156/63; PULSE 100; RESP 20; TEMP 36.2; O2SAT 100
[2020-03-12 21:14] LABS: Glucose, Whole Blood 120 mg/dL (60-115)
[2020-03-12 23:50] VITALS: BP 130/75; PULSE 108; RESP 18; TEMP 37.3; O2SAT 96
[2020-03-13] VITALS (11 sets, daily range): BP systolic 119–157; BP diastolic 63–86; PULSE 94–110; RESP 16–20; TEMP 36.4–37.2; O2SAT 97–100
[2020-03-13] MEDS: guaiFENesin 100 MG/5 ML LIQUID PO (00:13)
[2020-03-13] MEDS: Lactated Ringers 1,000 ML 80 ML IVCONT (00:57)
[2020-03-13 07:21] LABS: Glucose, Whole Blood 100 mg/dL (60-115)
[2020-03-13 07:26] LABS: Hematocrit 21.8 % (37-47); Mean Corpuscular HGB Conc 31.7 g/dl (31.0-35.0); Mean Corpuscular Volume 88.6 fL (80-98); Mean Platelet Volume 10.4 fL (9.4-12.3); Platelet Count 344 X10*3/uL (160-400); Red Blood Count 2.46 X10*6/uL (4.20-5.50); Red Cell Distribution Width 15.1 % (11.0-16.0); White Blood Count 13.7 X10*3/uL (4.8-10.8)
[2020-03-13 07:34] LABS: Hemoglobin 6.9 g/dl (12.0-16.0)
[2020-03-13 08:24] LABS: Anion Gap 15 (12-20); Blood Urea Nitrogen 15 mg/dL (9-16); Calcium 7.7 mg/dL (8.4-10.2); Carbon Dioxide 25 mmol/L (22-29); Chloride 104 mmol/L (96-108); Creatinine Clr Calc Pharmacy 90.1; Estimated Glomerular Filt Rate > 60; Glucose Random 97 mg/dL (60-115); Potassium 4.2 mmol/l (3.3-5.1); Sodium 140 mmol/L (135-145)
[2020-03-13 10:06] LABS: Anion Gap 14 (12-20); Blood Urea Nitrogen 15 mg/dL (9-16); Carbon Dioxide 27 mmol/L (22-29); Chloride 103 mmol/L (96-108); Creatinine Clr Calc Pharmacy 86.6; Estimated Glomerular Filt Rate > 60; Glucose Random 109 mg/dL (60-115); Potassium 4.2 mmol/l (3.3-5.1); Sodium 140 mmol/L (135-145)
[2020-03-13 10:26] LABS: Calcium 8.4 mg/dL (8.4-10.2)
[2020-03-13 11:08] LABS: Glucose, Whole Blood 105 mg/dL (60-115)
[2020-03-13 11:57] LABS: Carbohydrate Antigen 19-9 5 U/mL (<34)
--- NOTE | 2020-03-13 12:05 | PM.HEMONCPN ---
Medical Summary - Medical Summary Date of Service: 03/13/20 Chief complaint: presumed malignant ascites Review of Systems - Neurologic Reports other [facility] Medical History: Medical History (Last Reviewed 03/11/20 @ 02:45 by Emeli Liz RN) Asthma Diabetes Hyperlipidemia Hypertension Functional capacity: independent ambulation Surgical History: Surgical History (Last Reviewed 03/11/20 @ 02:45 by Emeli Liz RN) H/O section Smoking status: Never smoker Home Medications and Allergies Current Medications: Current Medications Generic Name Dose Route Start Last Admin Trade Name Freq PRN Reason Stop Dose Admin Acetaminophen 650 mg 03/10/20 23:36 Acetaminophen 325 Mg Tablet PO Q6H PRN Pain, Mild (Pain Scale 1-3) Docusate Sodium 100 mg 03/10/20 23:36 Docusate Sodium 100 Mg Capsule PO DAILY PRN Constipation Guaifenesin 5 ml 03/10/20 23:36 03/13/20 00:13 Guaifenesin 100 Mg/5 Ml Liquid PO 5 ml Q6H PRN Administration Cough Lactated Ringer's 1,000 mls @ 80 mls/hr 03/10/20 23:36 03/13/20 08:53 Lr IVCONT 0 mls/hr .[id number] [facility] Infusion Insulin Human Lispro 0 unit 03/10/20 23:36 03/13/20 08:53 Insulin Lispro 100 Unit/Ml 3 Ml Vial SUBCUT Not Given QIDACHS [facility] Protocol Ondansetron HCl 4 mg 03/10/20 23:36 Ondansetron Hcl 4 Mg/2 Ml Vial IVPUSH Q8H PRN Nausea and Vomiting Pharmacy Consult 1 each 03/10/20 18:48 Consult Rx Perform Med Rec MISCELLANE ONCE PRN Consult order Sodium Chloride 3 ml 03/11/20 00:00 03/13/20 09:28 0.9 % Sodium Chloride Flush 3 Ml Syringe IVFLUSH Not Given QSHIFT [facility] Home Medications Medication Instructions Recorded Confirmed Type Blood Pressure Med 25 mg DAILY 03/10/20 History Blood Pressure Med DAILY 03/10/20 History Cholesterol Med DAILY 03/10/20 History Vitamin D3 DAILY 03/10/20 History insulin glargine [Lantus U-100 35 unit SUBCUT DAILY 03/10/20 03/10/20 History Insulin] metformin 500 mg BID 03/10/20 03/10/20 History Allergies Allergy/AdvReac Type Severity Reaction Status Date / Time No Known Allergies Allergy Verified 03/10/20 22:06 Exam Vital signs: Vital Signs Temp 98.6 F 03/13/20 11:45 Pulse 100 03/13/20 11:45 Resp 16 03/13/20 11:45 BP 123/67 03/13/20 11:45 Pulse Ox 97 03/13/20 07:20 Intake & Output 03/12/20 03/13/20 03/13/20 18:59 06:59 18:59 Intake Total 1581.333 / 2701.333 1120 / 2701.333 634.667 / 634.667 Output Total 600 / 600 Balance 981.333 / 2101.333 1120 / 2101.333 634.667 / 634.667 Urine Output (Average ml/kg/hr) 0.46 0.46 0.46 Intake: Intake, Oral Amount 700 / 820 120 / 820 Intake (Blood Product) Amount 0 / 0 Red Blood Cells (E0382) Unit 0 / 0 [id number] Intake, IV Amount 881.333 / 8255.608 7267 / 1881.333 634.667 / 634.667 Lactated Ringers 1,000 ml @ 80 881.333 / 4453.937 4778 / 1881.333 634.667 / 634.667 mls/hr IVCONT .[id number] [facility] Rx#: [id number] Output: Output, Urine Amount 600 / 600 Other: Breakfast % Eaten 100% Lunch % Eaten 100% Number of Unmeasured Voids 1 Urine Bathroom Urine Color Yellow Weight 108.862 kg Weight 108.862 kg Body Mass Index 41.1 - Constitutional Present: no acute distress - Routine HEENT Exam Head: Present: atraumatic - Routine Respiratory Exam Present: decreased breath sounds - Routine Cardiovascular Exam Cardiovascular: Present: RRR - Routine Abdominal Exam Present: soft, nontender - Routine Rectal Exam Patient deferred: visual exam - Routine Extremities Exam Present: full ROM, nontender Data - Labs CBC & Chem 7: 03/13/20 05:43 03/13/20 08:56 Labs: 03/10/20 00:42 Add Laboratory Test Stat 03/10/20 Breakfast Diabetic Diet 03/10/20 11:52 XR chest 1V Stat 03/10/20 11:53 ECG 12 lead EKG Stat EKG Documentation DIRECTED guaiFEN/Codeine SF 200/20/10ML [Robitussin AC 200/20/10ML] 10 ml PO ONCE ONE 03/10/20 12:08 B Type Natriuretic Peptide Stat Basic Metabolic Panel Stat Complete Blood Count Auto Diff Stat D Dimer Stat Ferritin Stat IRON PROFILE Stat Liver Panel Stat Magnesium Stat Procalcitonin Stat Prothrombin Time INR Stat SARS-CoV2/FLU/RSV Stat 03/10/20 12:12 Add Laboratory Test Stat 03/10/20 12:36 0.9 % Sodium Chloride [Ns] 1,000 ml IVCONT 999 mls/hr 03/10/20 13:08 CT chest wo con Stat NM pul perfusion Stat 03/10/20 14:08 cefEPime HCl [Maxipime] 2 gm 0.9 % Sodium Chloride [Ns] 50 ml IV ONCE 03/10/20 14:16 cefEPime HCl [Maxipime] 2 gm IV .STK-MED ONE 03/10/20 14:19 Lactic Acid Stat 03/10/20 16:15 Lidocaine HCl 2 % MPF [Xylocaine 2 % MPF] 5 ml INFILTRATI ONCE ONE Lidocaine HCl 2 % MPF [Xylocaine 2 % MPF] 5 ml SUBCUT ONCE ONE 03/10/20 17:52 Lidocaine HCl 2 % MPF [Xylocaine 2 % MPF] 5 ml .ROUTE .STK-MED ONE 03/10/20 19:03 CT abdomen pelvis wo con Stat 03/10/20 19:32 Add Laboratory Test Stat 03/10/20 19:51 Albumin Peritoneal Fluid Stat Amylase Peritoneal Fluid Stat Cell Ct wDiff Peritoneal FL Stat Creatinine Peritoneal Fluid Stat LDH Peritoneal Fluid Stat Routine Culture w Gram Stain Stat 03/10/20 20:02 Glucose Peritoneal Fluid Stat Total Protein Peritoneal Fluid Stat 03/10/20 20:20 Transfer Order Routine 03/10/20 23:58 Complete Blood Count Auto Diff Stat 03/11/20 US venous duplex LE BI Routine 03/11/20 00:26 Glucose, Whole Blood Routine 03/11/20 00:28 Glucose, Whole Blood Routine 03/11/20 00:34 Flu Vacc [id number](6mos up)/PF [Fluarix Quad ] 0.5 ml IM .ONCE ONE 03/11/20 01:07 Glucose, Whole Blood Routine 03/11/20 01:44 Glucose, Whole Blood Routine 03/11/20 02:41 Throat Lozenge, Medicated [Cepacol] 1 lozenge MUCOUS MEM ONCE ONE 03/11/20 06:02 Basic Metabolic Panel DAILY@0600 Complete Blood Count Auto Diff DAILY@0600 SLIDE REVIEW Routine 03/11/20 07:09 Glucose, Whole Blood Routine 03/11/20 11:21 Glucose, Whole Blood Routine 03/11/20 17:00 Glucose, Whole Blood Routine 03/11/20 20:32 Glucose, Whole Blood Routine 03/12/20 07:00 Glucose, Whole Blood Routine 03/12/20 11:14 Glucose, Whole Blood Routine 03/12/20 15:37 Basic Metabolic Panel Routine Complete Blood Count no Diff Routine 03/12/20 16:22 Glucose, Whole Blood Routine 03/12/20 21:08 Glucose, Whole Blood Routine 03/13/20 05:43 Basic Metabolic Panel DAILY@0600 Complete Blood Count no Diff DAILY@0600 03/13/20 07:07 Glucose, Whole Blood Routine 03/13/20 08:56 Basic Metabolic Panel Routine 03/13/20 10:57 Glucose, Whole Blood Routine Laboratory Last Values WBC 13.7 X10*3/uL (4.8-10.8) H 03/13/20 05:43 RBC 2.46 X10*6/uL (4.20-5.50) L 03/13/20 05:43 Hgb 6.9 g/dl (12.0-16.0) L* 03/13/20 05:43 Hct 21.8 % (37-47) L 03/13/20 05:43 MCV 88.6 fL (80-98) 03/13/20 05:43 MCH 28.0 pg (27.0-33.0) 03/13/20 05:43 MCHC 31.7 g/dl (31.0-35.0) 03/13/20 05:43 RDW 15.1 % (11.0-16.0) 03/13/20 05:43 Plt Count 344 X10*3/uL (160-400) 03/13/20 05:43 MPV 10.4 fL (9.4-12.3) 03/13/20 05:43 Immature Gran % (Auto) 0.5 % (0.0-0.4) H 03/11/20 06:02 Neut % (Auto) 83.2 % (45-73) H 03/11/20 06:02 Lymph % (Auto) 10.3 % (20-40) L 03/11/20 06:02 [place] % (Auto) 5.7 % (2-11) 03/11/20 06:02 Eos % (Auto) 0.1 % (0-4) 03/11/20 06:02 Baso % (Auto) 0.2 % (0-2) 03/11/20 06:02 Lymph # (Auto) 1.7 X10*3/uL (1.2-4.9) 03/11/20 06:02 [place] # (Auto) 0.9 X10*3/uL (0.1-1.2) 03/11/20 06:02 Eos # (Auto) 0.0 X10*3/uL (0.0-0.4) 03/11/20 06:02 Baso # (Auto) 0.0 X10*3/uL (0.0-0.2) 03/11/20 06:02 Abs Immat Gran (auto) 0.09 X10*3/uL (0.00-0.03) H 03/11/20 06:02 Absolute Neuts (auto) 13.7 X10*3/uL (2.0-8.3) H 03/11/20 06:02 Absolute Nucleated RBC 0.000 X10*3/uL (0.0-0.012) 03/13/20 05:43 Nucleated RBC % (auto) 0.0 /100WBC (0.0-0.2) 03/13/20 05:43 Smear Tech's Comments VERIFIED 03/11/20 06:02 Smear Path Review SEE NOTE 03/13/20 05:43 PT 13.9 SEC (10.8-13.0) H 03/10/20 12:08 INR 1.2 (0.9-1.1) H 03/10/20 12:08 D-Dimer 4184 NG/ML 03/10/20 12:08 Sodium 140 mmol/L (135-145) 03/13/20 08:56 Potassium 4.2 mmol/l (3.3-5.1) 03/13/20 08:56 Chloride 103 mmol/L (96-108) 03/13/20 08:56 Carbon Dioxide 27 mmol/L (22-29) 03/13/20 08:56 Anion Gap 14 (12-20) 03/13/20 08:56 BUN 15 mg/dL (9-16) 03/13/20 08:56 Creatinine 0.78 mg/dL (0.5-1.4) 03/13/20 08:56 Estim Creat Clear Calc 86.6 03/13/20 08:56 Estimated GFR > 60 03/13/20 08:56 POC Glucose 105 mg/dL (60-115) 03/13/20 10:57 Random Glucose 109 mg/dL (60-115) 03/13/20 08:56 Lactic Acid 0.9 mmol/L (0.5-2.0) 03/10/20 14:19 Calcium 8.4 mg/dL (8.4-10.2) D 03/13/20 08:56 Magnesium 2.1 mg/dL (1.6-2.6) 03/10/20 12:08 Iron 16 mcg/dL (30-160) L 03/10/20 12:08 TIBC 137 mcg/dL (228-428) L 03/10/20 12:08 % Saturation 12 % (15-50) L 03/10/20 12:08 Unsat Iron Binding 121 ug/dL 03/10/20 12:08 Ferritin 811 ng/mL (10-250) H 03/10/20 12:08 Total Bilirubin 0.5 mg/dL (0.0-1.0) 03/10/20 12:08 Direct Bilirubin 0.2 mg/dL (0.0-0.5) 03/10/20 12:08 AST 18 U/L (5-31) 03/10/20 12:08 ALT 13 U/L (0-31) 03/10/20 12:08 Alkaline Phosphatase 64 U/L (39-117) 03/10/20 12:08 B-Natriuretic Peptide < 10 pg/mL (<100) 03/10/20 12:08 Total Protein 7.6 g/dL (6.5-8.0) 03/10/20 12:08 Albumin 3.7 g/dL (3.5-5.0) 03/10/20 12:08 CA 19-9 Antigen 5 U/mL (<34) 03/11/20 06:02 Procalcitonin 0.40 ng/mL 03/10/20 12:08 Peritoneal WBC 1.867 X10*3/uL 03/10/20 19:51 Peritoneal RBC 0.018 X10*6/uL 03/10/20 19:51 Periton Neutrophils 10 % 03/10/20 19:51 Periton Lymphocytes 72 % 03/10/20 19:51 Peritoneal Monocytes 18 % 03/10/20 19:51 Peritoneal Creatinine 1.4 03/10/20 19:51 Peritoneal Tot Protein 6.1 03/10/20 20:02 Peritoneal Albumin 3.4 03/10/20 19:51 Peritoneal LDH 754 03/10/20 19:51 Peritoneal Glucose 31 03/10/20 20:02 Peritoneal Amylase 210 03/10/20 19:51 Coronavirus (PCR) NEGATIVE (Negative) 03/10/20 12:08 Influenza Type A (PCR) NEGATIVE (Negative) 03/10/20 12:08 Influenza Type B (PCR) NEGATIVE (Negative) 03/10/20 12:08 RSV RNA Qual (PCR) NEGATIVE (Negative) 03/10/20 12:08 Blood Type B Positive 03/13/20 08:56 Antibody Screen NEGATIVE 03/13/20 08:56 Crossmatch See Detail 03/13/20 08:56 Progress Note: A/P (1) Abdominal ascites Start date: 03/11/20 (The worry is malignancy likely ovarian. Will await cytology, CA125.t ) Problem details: She has ascites with a left pleural effusion presumably from ovrian cancer in view of the omental caking. Status: Acute - Time Spent With Patient Total time spent is greater than 50% in coordination of care (as documented) at patient's floor/unit and/or counseling patient: 15 - 24 minutes
[2020-03-13 12:52] LABS: CA-125 2690 U/mL (<35)
--- NOTE | 2020-03-13 13:24 | P.PNIM_ITS ---
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 services explained re: blood transfusion -- risks vs benefits; she is agreeable tolerating diet, reports cough (not new) but otherwise would like to go home ROS General - no fevers or chills Cardiovascular - no chest pain Respiratory - no sob, +cough Abdominal- no abdominal pain, nausea, vomiting, diarrhea Physical Exam Vital Signs: Vital Signs: Last Vital Signs Temp 98.6 F 03/13/20 11:45 Pulse 100 03/13/20 11:45 Resp 16 03/13/20 11:45 BP 123/67 03/13/20 11:45 Pulse Ox 97 03/13/20 07:20 Body Mass Index 41.1 Const: Other: General - no acute distress, appears comfortable Cardiovascular - regular rate and rhythm, S1-S2 Lungs - normal respiratory effort, clear to auscultation bilaterally, no wheezing Abdomen - soft, nontender, no rebound or guarding Extremities - no edema bilaterally Neuro - awake and alert, no focal deficits Objective Data Current Medications Generic Name Dose Route Start Last Admin Trade Name Alekseyq PRN Reason Stop Dose Admin Acetaminophen 650 mg 03/10/20 23:36 Acetaminophen 325 Mg Tablet PO Q6H PRN Pain, Mild (Pain Scale 1-3) Docusate Sodium 100 mg 03/10/20 23:36 Docusate Sodium 100 Mg Capsule PO DAILY PRN Constipation Guaifenesin 5 ml 03/10/20 23:36 03/13/20 00:13 Guaifenesin 100 Mg/5 Ml Liquid PO 5 ml Q6H PRN Administration Cough Lactated Ringer's 1,000 mls @ 80 mls/hr 03/10/20 23:36 03/13/20 08:53 Lr IVCONT 0 mls/hr .[id number] CLAUDY Infusion Insulin Human Lispro 0 unit 03/10/20 23:36 03/13/20 12:06 Insulin Lispro 100 Unit/Ml 3 Ml Vial SUBCUT Not Given QIDACHS [facility] Protocol Ondansetron HCl 4 mg 03/10/20 23:36 Ondansetron Hcl 4 Mg/2 Ml Vial IVPUSH Q8H PRN Nausea and Vomiting Pharmacy Consult 1 each 03/10/20 18:48 Consult Rx Perform Med Rec MISCELLANE ONCE PRN Consult order Sodium Chloride 3 ml 03/11/20 00:00 03/13/20 09:28 0.9 % Sodium Chloride Flush 3 Ml Syringe IVFLUSH Not Given QSHIFT CLAUDY Labs CBC & Chem 7: 03/13/20 05:43 03/13/20 08:56 Microbiology Microbiology Results: Microbiology 03/10/20 19:51 Abdominal Fluid Gram Stain - Final 03/10/20 19:51 Abdominal Fluid Routine Culture - Final No growth after 2 days 03/10/20 14:22 Blood - Venous Blood Culture - Preliminary No growth after 48 hours. 03/10/20 14:19 Blood - Venous Blood Culture - Preliminary No growth after 48 hours. Assessment and Plan (1) Abdominal ascites: Problem details: She has ascites with a left pleural effusion presumably from ovrian cancer in view of the omental caking. Status: Acute Assessment and Plan: This is a 65 yo F admitted for suspected malignant ascites and further work up 1. Suspected Malignant ascites cytology pending tumor marker pending oncology on board -- needs outpatient f/u 2. EDILBERTO prerenal and resolved with hydration 3. DM with hypoglycemia sliding scale 4. Acute on Chronic Anemia no evidence of blood loss at this time transfuse 2 units prbcs Full Code DVT pptx, mechanical dispo: home tomorrow if h/h stable
[2020-03-13 16:17] LABS: Glucose, Whole Blood 108 mg/dL (60-115)
[2020-03-13 21:08] LABS: Glucose, Whole Blood 102 mg/dL (60-115)
[2020-03-13] MEDS: 0.9 % Sodium Chloride Flush 3 ML SYRINGE IVFLUSH (23:52)
[2020-03-14 03:05] VITALS: BP 167/78; PULSE 96; RESP 16; TEMP 37.2; O2SAT 96
[2020-03-14 06:48] LABS: Hematocrit 32.6 % (37-47); Hemoglobin 10.5 g/dl (12.0-16.0); Mean Corpuscular HGB Conc 32.2 g/dl (31.0-35.0); Mean Corpuscular Hemoglobin 29.8 pg (27.0-33.0); Mean Corpuscular Volume 92.6 fL (80-98); Mean Platelet Volume 9.9 fL (9.4-12.3); Platelet Count 366 X10*3/uL (160-400); Red Blood Count 3.52 X10*6/uL (4.20-5.50); Red Cell Distribution Width 15.8 % (11.0-16.0)
[2020-03-14 07:14] LABS: Glucose, Whole Blood 83 mg/dL (60-115)
[2020-03-14] MEDS: 0.9 % Sodium Chloride Flush 3 ML SYRINGE IVFLUSH (07:23)
[2020-03-14 07:26] VITALS: BP 160/78; PULSE 97; RESP 18; TEMP 36.8; O2SAT 98
--- NOTE | 2020-03-14 07:38 | P.DS_ITS ---
DS: Providers Provider Date of admission: 03/10/20 20:28 Primary care physician: Nallely Chicas MD Consults: 03/10/20 23:36 Consult to Hematology / Oncology [place]ine [place]ing [place] [facility] [place] Reason for consultation: suspected abdominal CA r/o ovarian etiology Has provider been notified: No DS: Diagnosis Discharge Diagnosis (1) Abdominal ascites: Status: Acute (2) EDILBERTO (acute kidney injury): Status: Acute (3) Diabetes: Status: Acute (4) Acute on chronic anemia: Status: Acute DS: Medications Discharge Medications Home Medications: Home Medications Medication Instructions Recorded Confirmed Blood Pressure Med 25 mg DAILY 03/10/20 Blood Pressure Med DAILY 03/10/20 Cholesterol Med DAILY 03/10/20 Vitamin D3 DAILY 03/10/20 insulin glargine 35 unit SUBCUT DAILY 03/10/20 03/10/20 metformin 500 mg BID 03/10/20 03/10/20 Previous Rx's Medication Instructions Recorded doxycycline hyclate 100 mg PO BID #14 tab 03/14/20 guaifenesin 5 ml PO Q6H PRN #150 ml 03/14/20 DS: Summary Hospital Course Hospital Course: From the admission H&P: this is a 65-year-old [place]-speaking a history of diabetes hypertension, dyslipidemia asthma who presents to the emergency complaints of Cough and vomiting. She reports 1 month history of cough productive of yellow phlegm. She has no associated fever or chills. Denies sick contacts. She has had 5 days of vomiting. Denies associated abdominal pain, urinary symptoms, diarrhea. She has early satiety and nausea. Workup in the emergency department revealed numerous abnormalities including creatinine of 1.51, leukocytosis of 18.1, H/ H of 8.8/27.7. She was also noted to be persistently tachycardic and EKG confirmed sinus tachycardia. She underwent a chest CT which showed a moderate left-sided pleural effusion as well as large volume ascites. She had paracentesis in the emergency department which drained 1 L which was described as serosanguineous in color. Her D-dimer is elevated and Given persistent tachycardia she had a V/Q scan which showed no evidence of PE. she denies any dark or bloody stools. Given multiple lab abnormalities decision was made to admit her for further workup. Hospital course: patient underwent diagnostic /therapeutic paracentesis. She was evaluated by Oncology and had tumor markers sent as her ascites was likely malignant. She was transfused 2 units packed red cells for her anemia. Her ascites fluid cytology is pending. CA 125 returned elevated. She was treated with doxycycline for presumed bronchitis and will be discharged on this. She is to follow up with Dr. Godinez from Oncology Time Spent with Patient Time attestation: Total time spent providing and/or coordinating discharge services: Physical Exam Vital Signs: Vital Signs: Last Vital Signs Temp 98.3 F 03/14/20 07:26 Pulse 97 03/14/20 07:26 Resp 18 03/14/20 07:26 BP 160/78 H 03/14/20 07:26 Pulse Ox 98 03/14/20 07:26 Body Mass Index 41.1 General - no acute distress, appears comfortable Cardiovascular - regular rate and rhythm, S1-S2 Lungs - normal respiratory effort, clear to auscultation bilaterally, no wheezing Abdomen - soft, nontender, no rebound or guarding Extremities - no edema bilaterally Neuro - awake and alert, no focal deficits Discharge Plan Discharge Patient Disposition: Home, Self-Care Referrals: Eduardo Godinez MD [Physician] - 1 Week Nallely Chicas MD [Primary Care Provider] - Discharge Medications: New guaifenesin 100 mg/5 mL Liquid 5 ml PO Q6H PRN (Reason: Cough) Qty: 150 RF: 0 doxycycline hyclate 100 mg Tablet 100 mg PO BID Qty: 14 RF: 0 Continued insulin glargine 100 unit/mL Cartridge 35 unit SUBCUT DAILY RF: 0 Blood Pressure Med 25 mg DAILY RF: 0 Blood Pressure Med DAILY RF: 0 metformin 500 mg Tablet 500 mg BID RF: 0 Cholesterol Med DAILY RF: 0 Vitamin D3 DAILY RF: 0 Discharge Orders: Discharge Order (Routine); Ordered 03/14/20 Ordered By: Jose Garcia Diet: advance to usual diet Activity on Discharge: As tolerated Visit Report Forms: Patient Portal Discharge page Care Plan Goals: To get work up and treatment for potential cancer Health Concerns: Probable Cancer Plan of Treatment: To follow up with Dr. Godinez for further treatment.
--- NOTE | 2020-03-14 08:35 | MHC.CM.PN ---
Patient will be discharged home today no services. Patient to arrange own transport.
== END 2020-03-14 10:24 | disposition home or self-care (01) | DRG 530 ==
LOC: HO.ED 11:58 → HO.IMC 20:45
PROVIDERS: Internal Medicine; Nurse Practitioner Family; Physician Assistant Medical; Admitting Provider Internal Medicine; Emergency Provider Internal Medicine; PCP Internal Medicine; Visit Provider Family Medicine
DX: C56.9 Malignant neoplasm of unspecified ovary (principal); N17.9 Acute kidney failure, unspecified; R18.0 Malignant ascites; E78.5 Hyperlipidemia, unspecified; E11.649 Type 2 diabetes mellitus with hypoglycemia without coma; D50.9 Iron deficiency anemia, unspecified; J45.909 Unspecified asthma, uncomplicated; Z20.828 Contact with and (suspected) exposure to other viral communicable diseases; Z23 Encounter for immunization; Z79.4 Long term (current) use of insulin; Z79.899 Other long term (current) drug therapy
CPT/HCPCS: 0241U; 36415; 71045; 71250; 74176; 78580; 80048; 80076; 82042; 82150; 82728; 82945; 82947; 83540; 83605; 83615; 83735; 83880; 84145; 84157; 85025; 85027; 85060; 85379; 85610; 86301; 86304; 86850; 86900; 86901; 86920; 86923; 87040; 87071; 87205; 88112; 88305; 88341; 88342; 89051; 90686; 93005; 93970; 96360; 99285; 99291; A9540; J0692; P9016

== ENCOUNTER 2020-03-26 14:13 | Outpatient (REF) | payer MEDICAID, SELFPAY ==
--- NOTE | 2020-03-26 14:17 | MM_ITS ---
EXAMINATION: MM DIAGNOSTIC DIGITAL BREAST TOMOSYNTHESIS, LEFT CLINICAL INFORMATION: Recall from screening for focal nodular asymmetry posterior 3:30 o'clock position, possibly dermal. COMPARISON: Mammography: 03/05/2020, 09/16/2018 TECHNIQUE: Digital breast tomosynthesis is performed. 2D images are generated from the tomosynthesis. The following views are obtained: CC and MLO views with a dermal marker positioned over visible dermal lesion posterior 3:00 position. FINDINGS: The breasts are almost entirely fatty (ACR BI-RADS breast composition Category a). The dermal marker overlies the focal nodular asymmetric density noted on recent screening mammography. The dermal lesion corresponds to the recent mammographic finding. Results are discussed with the patient at time of visit, using an manager water wastewater. MM/MM tomosynthesis added views L IMPRESSION: Dermal lesion posterior 3:00 left breast corresponding to finding on recent mammography. ASSESSMENT: BI-RADS 2: Benign RECOMMENDATION: Routine annual mammography screening. This patient's information was entered into a reminder system with a target due date for their next mammogram.
== END 2020-03-26 14:14 | disposition home or self-care (01) ==
LOC: HO.MAMMO 14:13
PROVIDERS: PCP Internal Medicine; Visit Provider Internal Medicine
DX: N63.20 Unspecified lump in the left breast, unspecified quadrant (principal)
CPT/HCPCS: 77061; 77065

== ENCOUNTER 2020-04-30 10:21 | Emergency (ER) | payer MEDICAID, SELFPAY ==
[2020-04-30] VITALS (7 sets, daily range): BP systolic 120–147; BP diastolic 67–84; PULSE 105–112; RESP 16–18; TEMP 36.1–37.5; O2SAT 96–98; BMI 31.4
--- NOTE | 2020-04-30 11:31 | ED_ITS ---
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 Mode of arrival: ambulatory Limitations: no limitations History of Present Illness HPI narrative: 65 yo female s/p chemo on for metastatic gastric cancer 2nd cycle had no issues with the first once comes in with c/o nausea and vo miting with diffuse abdominal cramping since Thursday MD elicited complaint: abdominal pain Pertinent past history: other (intraabdominal malignancy) Onset (ago): day(s) (started on Thursday) Pain Consistency: constant Location: diffuse Severity: moderate Quality: cramping Radiation: none Migration to: no migration Exacerbating factors: nothing Relieving factors: nothing Context: recent surgery/procedure Associated symptoms: nausea and vomiting Related Data Home Medications Medication Instructions Recorded Confirmed Blood Pressure Med 25 mg DAILY 03/10/20 Blood Pressure Med DAILY 03/10/20 Cholesterol Med DAILY 03/10/20 metformin 500 mg DAILY 03/10/20 04/30/20 insulin glargine 12 unit SUBCUT DAILY 04/30/20 04/30/20 Previous Rx's Medication Instructions Recorded ondansetron 4 mg PO Q8H PRN #20 tab 04/30/20 Allergies Allergy/AdvReac Type Severity Reaction Status Date / Time No Known Allergies Allergy Verified 03/10/20 22:06 Review of Systems Review of Systems Constitutional : No Weight loss, No Fever, pos Chills ENT/Mouth : No sore throat, No Rhinorrhea Eyes: No Swelling, No Redness Cardiovascular : No Chest Pain, No SOB, NoEdema Respiratory : No Cough, No Sputum, No Wheezing Gastrointestinal : Positive Nausea, Positive Vomiting, positive Diarrhea, posi tive abdominal Pain, No Hematochezia, No Melena Genitourinary : No Dysuria, No Urinary Frequency, No Hematuria, No Urgency Musculoskeletal : No joint pain, No Myalgias, No Joint Swelling Skin : No Skin Lesions, No rash Neuro : pos Weakness, No Numbness, No Dizziness, No Headache Psych : No Anxiety/Panic, No Depression Heme/Lymph: No Bruising, No Lymphadenopathy Endocrine : No Polyuria, No Polydipsia All other systems reviewed and are negative. Physical Exam Vital Signs: Vital Signs: Last Vital Signs Temp 97 F 04/30/20 16:17 Pulse 111 H 04/30/20 16:25 Resp 18 04/30/20 16:17 BP 120/75 04/30/20 16:25 Pulse Ox 98 04/30/20 16:17 Body Mass Index 31.4 Appearance: Alert. Oriented X3. No acute distress. Eyes: Pupils equal, round and reactive to light. ENT: Pharynx normal. Neck: Normal inspection. Neck supple. CVS: Normal heart rate and rhythm. Pulses normal. Respiratory: No respiratory distress. Breath sounds normal. Abdomen: Soft and mild distention with mild diffuse ttp Skin: Skin warm and dry. Normal skin color. Normal skin turgor. Extremities: No lower extremity edema. No calf ttp Neuro: Oriented X 3. No motor deficit. No sensory deficit. Procedures Paracentesis Time Out Performed: Yes Local Anesthetic: lidocaine 1% Amount of anesthesia used (mL): 5 Fluid: cloudy, bloody (1950mL) and sent to lab for analysis Post Procedure Exam: awake, alert Patient Tolerated Procedure: well Complications: none Course Course Course Narrative: patient feels better, wants to go home can tolerate PO MDM - Abdominal Pain MDM Narrative Medical decision making narrative: 65 yo female s/p two cycles of chemo for metastatic gastric cancer last dose on since then c/o weakness, n/v, diffuse abdominal cramping - at this time will need labs, CT scan, IVF, IV morphine and zofran dispo per results and findings Lab Data Result diagrams: 04/30/20 12:02 04/30/20 12:02 Labs: Lab Results 04/30/20 04/30/20 04/30/20 Range/Units 12:02 12:02 12:02 WBC 13.0 H (4.8-10.8) X10*3/uL RBC 3.03 L (4.20-5.50) X10*6/uL Hgb 8.9 L (12.0-16.0) g/dl Hct 26.6 L (37-47) % MCV 87.8 (80-98) fL MCH 29.4 (27.0-33.0) pg MCHC 33.5 (31.0-35.0) g/dl RDW 16.7 H (11.0-16.0) % Plt Count 219 D (160-400) X10*3/uL MPV 10.2 (9.4-12.3) fL Immature Gran % (Auto) 0.5 H (0.0-0.4) % Neut % (Auto) 85.8 H (45-73) % Lymph % (Auto) 12.0 L (20-40) % [place] % (Auto) 1.3 L (2-11) % Eos % (Auto) 0.2 (0-4) % Baso % (Auto) 0.2 (0-2) % Lymph # (Auto) 1.6 (1.2-4.9) X10*3/uL [place] # (Auto) 0.2 (0.1-1.2) X10*3/uL Eos # (Auto) 0.0 (0.0-0.4) X10*3/uL Baso # (Auto) 0.0 (0.0-0.2) X10*3/uL Abs Immat Gran (auto) 0.06 H (0.00-0.03) X10*3/uL Absolute Neuts (auto) 11.2 H (2.0-8.3) X10*3/uL Absolute Nucleated RBC 0.000 (0.0-0.012) X10*3/uL Nucleated RBC % (auto) 0.0 (0.0-0.2) /100WBC PT 12.7 (10.8-13.0) SEC INR 1.1 (0.9-1.1) APTT 24.9 (24.1-38.0) SEC Sodium 131 L (135-145) mmol/L Potassium 3.7 (3.3-5.1) mmol/l Chloride 92 L (96-108) mmol/L Carbon Dioxide 26 (22-29) mmol/L Anion Gap 17 (12-20) BUN 25 H D (9-16) mg/dL Creatinine 1.07 (0.5-1.4) mg/dL Estim Creat Clear Calc 58.7 Estimated GFR 51 Random Glucose 196 H D (60-115) mg/dL Lactic Acid (0.5-2.0) mmol/L Calcium 8.4 (8.4-10.2) mg/dL Magnesium 1.3 L* (1.6-2.6) mg/dL Total Bilirubin 0.5 (0.0-1.0) mg/dL Direct Bilirubin 0.2 (0.0-0.5) mg/dL AST 25 (5-31) U/L ALT 19 (0-31) U/L Alkaline Phosphatase 54 (39-117) U/L Total Protein 6.5 (6.5-8.0) g/dL Albumin 3.6 (3.5-5.0) g/dL Lipase 44 (8-78) U/L COVID-19 (RAJESH) (Negative) COVID-19 Clin Com 04/30/20 04/30/20 Range/Units 12:02 13:51 WBC (4.8-10.8) X10*3/uL RBC (4.20-5.50) X10*6/uL Hgb (12.0-16.0) g/dl Hct (37-47) % MCV (80-98) fL MCH (27.0-33.0) pg MCHC (31.0-35.0) g/dl RDW (11.0-16.0) % Plt Count (160-400) X10*3/uL MPV (9.4-12.3) fL Immature Gran % (Auto) (0.0-0.4) % Neut % (Auto) (45-73) % Lymph % (Auto) (20-40) % [place] % (Auto) (2-11) % Eos % (Auto) (0-4) % Baso % (Auto) (0-2) % Lymph # (Auto) (1.2-4.9) X10*3/uL [place] # (Auto) (0.1-1.2) X10*3/uL Eos # (Auto) (0.0-0.4) X10*3/uL Baso # (Auto) (0.0-0.2) X10*3/uL Abs Immat Gran (auto) (0.00-0.03) X10*3/uL Absolute Neuts (auto) (2.0-8.3) X10*3/uL Absolute Nucleated RBC (0.0-0.012) X10*3/uL Nucleated RBC % (auto) (0.0-0.2) /100WBC PT (10.8-13.0) SEC INR (0.9-1.1) APTT (24.1-38.0) SEC Sodium (135-145) mmol/L Potassium (3.3-5.1) mmol/l Chloride (96-108) mmol/L Carbon Dioxide (22-29) mmol/L Anion Gap (12-20) BUN (9-16) mg/dL Creatinine (0.5-1.4) mg/dL Estim Creat Clear Calc Estimated GFR Random Glucose (60-115) mg/dL Lactic Acid 1.1 (0.5-2.0) mmol/L Calcium (8.4-10.2) mg/dL Magnesium (1.6-2.6) mg/dL Total Bilirubin (0.0-1.0) mg/dL Direct Bilirubin (0.0-0.5) mg/dL AST (5-31) U/L ALT (0-31) U/L Alkaline Phosphatase (39-117) U/L Total Protein (6.5-8.0) g/dL Albumin (3.5-5.0) g/dL Lipase (8-78) U/L COVID-19 (RAJESH) Negative (Negative) COVID-19 Clin Com See Note ECG Data Attestation: I personally reviewed and interpreted this ECG as follows: ECG interpretation date: 04/30/20 ECG interpretation time: 12:00 Interpretation: Rate: 109 Rhythm: sinus tachycardia [place]: normal Normal P waves. Normal [place]. Normal QRS complex. ST T wave : normal no acute ischemia qTC: normal prior studies: no acute ischemia, previously tachycardic The study has been interpreted contemporaneously by me. . Discharge Plan Discharge Clinical Impression: Hypomagnesemia Abdominal ascites Qualifiers: Ascites type: malignant Qualified Code(s): R18.0 - Malignant ascites Vomiting Qualifiers: Vomiting type: unspecified Vomiting Intractability: non-intractable Nausea presence: with nausea Qualified Code(s): R11.2 - Nausea with vomiting, unspecified Patient Disposition: Home, Self-Care Instructions: Ascites (ED), Hypomagnesemia (ED), Paracentesis (DC) Additional Instructions: return to ED for any worsening symptoms or concerns Prescriptions: New ondansetron 4 mg tablet,disintegrating 4 mg PO Q8H PRN (Reason: nausea and vomiting) Qty: 20 RF: 0 No Action Blood Pressure Med 25 mg DAILY RF: 0 Blood Pressure Med DAILY RF: 0 metformin 500 mg Tablet 500 mg DAILY RF: 0 Cholesterol Med DAILY RF: 0 insulin glargine 100 unit/mL (3 mL) Insulin Pen 12 unit SUBCUT DAILY RF: 0 Referrals: Nallely Chicas MD [Primary Care Provider] - 2 days Print Language: [place] African [facility] Past Medical History Attestation statement: The following information was validated with the patient. Medical History (Updated 04/30/20 @ 16:32 by Flory Stewart DO) Asthma Diabetes Gastric cancer Hyperlipidemia Hypertension Surgical History H/O section Social History Social History Household Members: Spouse Housing: Apartment Alcohol intake: never Smoking Status: Never smoker Smoked in Last 30 Days: No Use of substances other than those prescribed or required for medical reasons: No Advance Directives: No Advance Directives Information Provided: Yes service: No Current occupational status: employed
--- NOTE | 2020-04-30 11:32 | CT_ITS ---
EXAMINATION: CT ABDOMEN AND PELVIS WITH CONTRAST CLINICAL INFORMATION: Abdominal pain COMPARISON: Previous CT scan February 2020 TECHNIQUE: Multidetector volumetric images were obtained from the superior aspect of the liver through the pubic symphysis following administration 85 mL of Omnipaque 350 intravenous contrast. Sagittal and coronal reformatted images were obtained on the technologist's workstation. Oral contrast: Yes This CT examination was performed using dose optimization techniques as appropriate, variously including the following: *Automated exposure control *Adjustment of mA and/or kV according to patient size (this includes techniques or standardized protocols for targeted exams where dose is matched to indication/reason for exam; i.e. extremities or head) *Use of iterative reconstruction technique DLP: 741 mGy-cm FINDINGS: LUNG BASES: There are small bilateral pleural effusions. The distal thoracic esophagus is dilated and filled with fluid. LIVER, GALLBLADDER, AND BILIARY TREE: The liver is normal in size, shape, and attenuation. No focal hepatic lesion or biliary ductal dilatation is present. The gallbladder is unremarkable with no evidence of radiopaque gallstones, gallbladder wall thickening, or obvious pericholecystic inflammatory changes. PANCREAS: Unremarkable. SPLEEN: Unremarkable. ADRENAL GLANDS: Unremarkable. KIDNEYS AND URETERS: The kidneys are normal in size, shape, and attenuation. No hydronephrosis, hydroureter, or calculi seen. There is a small cyst in the upper pole of the right kidney. BLADDER: Unremarkable. GASTROINTESTINAL TRACT: The small and large bowel are unremarkable. The appendix is unremarkable. ABDOMINAL WALL: No significant hernia is appreciated. LYMPH NODES: Normal. There is a large amount of ascites. There is evidence of peritoneal disease with thickening and caking of the greater omentum and discrete peritoneal soft tissue masses. Largest soft tissue mass is located in the right upper quadrant inferior to the liver measuring 1.9 x 3.6 cm axial image 35 series 3. Findings do not appear appreciably changed from February 2020. VASCULAR: Unremarkable. PELVIC VISCERA: Unremarkable. OSSEOUS STRUCTURES: There are degenerative changes of the spine. CT/CT abdomen pelvis w con IMPRESSION: Large amount of ascites. Omental caking of the greater and peritoneal masses. Malignant ascites/peritoneal carcinomatosis should be considered. Dilated fluid-filled distal thoracic esophagus. Diverticulosis of the colon. Right renal cyst.
--- NOTE | 2020-04-30 11:32 | ECG_ITS ---
Test Reason : ABDOMINAL PAIN Blood Pressure : / mmHG Vent. Rate : 109 BPM Atrial Rate : 109 BPM P-R Int : 132 ms QRS Dur : 080 ms QT Int : 316 ms P-R-T Axes : 060 047 053 degrees QTc Int : 425 ms Sinus tachycardia Possible Left atrial enlargement Borderline ECG When compared with ECG of 10-MAR-2020 12:03, No significant change was found Referred By: Flory Stewart Electronically Signed By:ROSANA ADAME
[2020-04-30] MEDS: 0.9 % Sodium Chloride 500 ML IV (12:01)
[2020-04-30] MEDS: Morphine Sulfate 4 MG/ML CARTRIDGE IVPUSH (12:11)
[2020-04-30] MEDS: ondansetron HCL 4 MG/2 ML VIAL IVPUSH (12:11)
[2020-04-30 12:15] LABS: MANUAL DIFF FLAG NO
[2020-04-30 12:18] LABS: Basophils Percent Auto 0.2 % (0-2); Eosinophils Percent Auto 0.2 % (0-4); Hematocrit 26.6 % (37-47); Hemoglobin 8.9 g/dl (12.0-16.0); Imm Gran Abs Auto 0.06 X10*3/uL (0.00-0.03); Imm Gran Pct Auto 0.5 % (0.0-0.4); Lymphocytes Absolute Auto 1.6 X10*3/uL (1.2-4.9); Mean Corpuscular HGB Conc 33.5 g/dl (31.0-35.0); Mean Corpuscular Hemoglobin 29.4 pg (27.0-33.0); Mean Corpuscular Volume 87.8 fL (80-98); Mean Platelet Volume 10.2 fL (9.4-12.3); Monocytes Absolute Auto 0.2 X10*3/uL (0.1-1.2); Monocytes Percent Auto 1.3 % (2-11); Neutrophils Absolute Auto 11.2 X10*3/uL (2.0-8.3); Neutrophils Percent Auto 85.8 % (45-73); Platelet Count 219 X10*3/uL (160-400); Red Blood Count 3.03 X10*6/uL (4.20-5.50); Red Cell Distribution Width 16.7 % (11.0-16.0)
[2020-04-30 12:24] LABS: INTERNATIONAL NORM RATIO 1.1 (0.9-1.1); Prothrombin Time 12.7 SEC (10.8-13.0)
[2020-04-30 12:26] LABS: Partial Thromboplastin Time 24.9 SEC (24.1-38.0)
[2020-04-30 12:39] LABS: COVID-19 Test Negative (Negative)
[2020-04-30 12:43] LABS: Alanine Aminotransferase 19 U/L (0-31); Albumin Level 3.6 g/dL (3.5-5.0); Alkaline Phosphatase 54 U/L (39-117); Anion Gap 17 (12-20); Aspartate Amino Transferase 25 U/L (5-31); Bilirubin Direct 0.2 mg/dL (0.0-0.5); Bilirubin Total 0.5 mg/dL (0.0-1.0); Blood Urea Nitrogen 25 mg/dL (9-16); Calcium 8.4 mg/dL (8.4-10.2); Carbon Dioxide 26 mmol/L (22-29); Chloride 92 mmol/L (96-108); Creatinine Clr Calc Pharmacy 58.7; Estimated Glomerular Filt Rate 51; Glucose Random 196 mg/dL (60-115); Lipase 44 U/L (8-78); Magnesium 1.3 mg/dL (1.6-2.6); Potassium 3.7 mmol/l (3.3-5.1); Sodium 131 mmol/L (135-145); Total Protein 6.5 g/dL (6.5-8.0)
[2020-04-30] MEDS: iohexoL 350 MG/ML 100 ML INFUS..BTL IV (13:12)
[2020-04-30] MEDS: Magnesium Sulfate/H2O 2 GM/50 ML PIGGYBACK IV (13:20)
[2020-04-30 14:21] LABS: Lactic Acid 1.1 mmol/L (0.5-2.0)
--- NOTE | 2020-04-30 15:31 | PC.NURSE ---
call placed to ir states plan for ir to complete paracentesis.
[2020-04-30] MEDS: Lidocaine HCl 2 % MPF 5 ML VIAL SUBCUT (16:00)
--- NOTE | 2020-04-30 16:01 | PC.NURSE ---
md at bedside for paracentesis. ir not answering
[2020-04-30 16:48] LABS: MN% 94.9 %; PMN% 5.1 %; RBC Peritoneal Fluid 0.173 X10*6/uL; WBC Peritoneal Fluid 0.779 X10*3/uL
[2020-04-30 17:30] LABS: BF Shift QC OK YES; Eosinophils Peritoneal Fl 2 %; Lymphocyte Peritoneal Fl 52 %; Monocytes Peritoneal Fl 42 %; Neutrophils Peritoneal Fluid 2 %; Other Peritioneal Fl 2 %
[2020-05-01 07:17] LABS: Albumin Peritoneal Fluid 2.9
[2020-05-01 07:18] LABS: Glucose Peritoneal Fluid 132; LDH Peritoneal Fluid 893; Total Protein Peritoneal Fluid 4.9
[2020-05-01 07:19] LABS: pH Peritoneal Fluid 7.39
== END 2020-04-30 19:22 | disposition home or self-care (01) ==
PROVIDERS: Emergency Provider Emergency Medicine; PCP Internal Medicine
DX: R10.9 Unspecified abdominal pain (principal); R18.0 Malignant ascites; E83.42 Hypomagnesemia; R11.2 Nausea with vomiting, unspecified; Z20.822 Contact with and (suspected) exposure to COVID-19; D49.0 Neoplasm of unspecified behavior of digestive system; Z51.11 Encounter for antineoplastic chemotherapy; I10 Essential (primary) hypertension; E11.9 Type 2 diabetes mellitus without complications
CPT/HCPCS: 49082; 36415; 74177; 80048; 80076; 82042; 82945; 83605; 83615; 83690; 83735; 83986; 84157; 85025; 85610; 85730; 87040; 87071; 87073; 87205; 87635; 89051; 93005; 96361; 96365; 96375; 99284; J2270; J2405; J3475; Q9967

== ENCOUNTER 2021-01-02 14:32 | Emergency (ER) | payer MEDICAID, SELFPAY ==
[2021-01-02 14:37] VITALS: BP 133/71; PULSE 80; RESP 16; TEMP 36.6; O2SAT 98; BMI 31.2
[2021-01-02 17:05] LABS: Mean Corpuscular Volume 99.2 fL (80-98)
[2021-01-02 17:17] LABS: Hematocrit 36.8 % (37-47); Hemoglobin 11.8 g/dl (12.0-16.0); Mean Corpuscular HGB Conc 32.1 g/dl (31.0-35.0); Mean Corpuscular Hemoglobin 31.8 pg (27.0-33.0); Mean Platelet Volume 9.7 fL (9.4-12.3); Platelet Count 222 X10*3/uL (160-400); Red Blood Count 3.71 X10*6/uL (4.20-5.50); Red Cell Distribution Width 13.3 % (11.0-16.0); White Blood Count 19.5 X10*3/uL (4.8-10.8)
[2021-01-02 17:22] LABS: Alanine Aminotransferase 14 U/L (0-31); Alkaline Phosphatase 65 U/L (39-117); Anion Gap 14 (12-20); Aspartate Amino Transferase 22 U/L (5-31); Bilirubin Total 0.2 mg/dL (0.0-1.0); Blood Urea Nitrogen 26 mg/dL (9-16); Calcium 9.3 mg/dL (8.4-10.2); Carbon Dioxide 25 mmol/L (22-29); Chloride 105 mmol/L (96-108); Creatinine Clr Calc Pharmacy 38.1; Estimated Glomerular Filt Rate 34; Glucose Random 61 mg/dL (60-115); Potassium 4.1 mmol/L (3.3-5.1); Sodium 140 mmol/L (135-145); Total Protein 7.3 g/dL (6.5-8.0)
[2021-01-02 18:44] LABS: Acanthocytes 1+ (0-2) /OIF; Band Neutrophils Percent 1 % (3-5); Burr Cells 1+ (0-2) /OIF; Eosinophils Absolute Manual 0.2 X10*3/UL (0.0-0.8); Eosinophils Percent Manual 1 % (0-4); Lymphocytes Absolute Manual 5.7 X10*3/uL (0.6-4.8); Lymphocytes Percent Manual 29 % (20-40); Metamyelocytes Absolute 0.6 X10*3/uL; Metamyelocytes Percent 3 %; Microcytosis 1+ (5-14) /OIF; Myelocytes Absolute 0.2 X10*/uL; Myelocytes Percent 1 %; Neutrophils Absolute Manual 12.9 X10*3/uL (2.2-7.9); Neutrophils Percent Manual 65 % (45-73); Platelet Estimate NORMAL (NORMAL); Platelet Morphology Comment NORMAL; Polychromasia 1+ (0-2) /OIF; RBC Morphology NOTED
--- NOTE | 2021-01-02 19:34 | PC.NURSE ---
no answer in wr [id number]
--- NOTE | 2021-01-03 12:51 | PC.NURSE ---
I contacted Marlin in follow up to her ED visit yesterday where she walked out without being seen by a provider. She indicated she was feeling better and no longer wanted to see the doctor and she went home. She has an appointment with her PCP next week and will follow up with her PCP if symptoms return.
== END 2021-01-02 21:38 | disposition left against medical advice (07) ==
PROVIDERS: Emergency Provider Emergency Medicine; PCP Internal Medicine
DX: R10.9 Unspecified abdominal pain (principal); C76.2 Malignant neoplasm of abdomen; Z79.899 Other long term (current) drug therapy
CPT/HCPCS: 36415; 80053; 85007; 85027; 99282; 99283

== ENCOUNTER 2021-03-05 15:01 | Inpatient (IN) | payer MEDICAID, SELFPAY ==
--- NOTE | ~2021-03-05 | CT_ITS ---
EXAMINATION: CT ABDOMEN AND PELVIS WITHOUT CONTRAST CLINICAL INFORMATION: Abdominal pain and vomiting COMPARISON: CT abdomen pelvis 04/30/2020, 03/10/2020 TECHNIQUE: Multidetector volumetric imaging was performed from the superior aspect of the liver through the pubic symphysis. Sagittal and coronal reformatted images were obtained on the technologist's workstation. This CT examination was performed using dose optimization techniques as appropriate, variously including the following: *Automated exposure control *Adjustment of mA and/or kV according to patient size (this includes techniques or standardized protocols for targeted exams where dose is matched to indication/reason for exam; i.e. extremities or head) *Use of iterative reconstruction technique DLP: 703 mGy-cm FINDINGS: LUNG BASES: Bilateral pleural effusions have resolved since the prior study. The lung bases now appear normal. LIVER, GALLBLADDER, AND BILIARY TREE: The liver is normal in size, shape, and attenuation. No focal hepatic lesion or biliary ductal dilatation is present. The gallbladder is unremarkable with no evidence of radiopaque gallstones, gallbladder wall thickening, or obvious pericholecystic inflammatory changes. PERITONEUM/OMENTUM: Ascites is present in the volume of which is decreased when compared to the prior study. However, is new small bowel dilatation and with dilatation of small bowel loops up to 3 cm in diameter. There is still remains some omental cake but masslike areas may be minimally improved when compared to the prior study. A new area of soft tissue density is seen just above the gallbladder (4:206). Streaky changes in the mesentery along with scattered nodular densities again (for example 5:51) worrisome for peritoneal carcinomatosis. PANCREAS: Unremarkable. SPLEEN: Unremarkable. ADRENAL GLANDS: Unremarkable. KIDNEYS AND URETERS: The kidneys are normal in size, shape, and attenuation. No hydronephrosis, hydroureter, or calculi seen. No perinephric stranding. BLADDER: Unremarkable. GASTROINTESTINAL TRACT: Colonic diverticular changes present without diverticulitis. Please see discussion above regarding dilated small bowel loop and developing small bowel obstruction ABDOMINAL WALL: No significant hernia is appreciated. LYMPH NODES: No significant retroperitoneal lymphadenopathy is seen. VASCULAR: Unremarkable. PELVIC VISCERA: Surgically removed OSSEOUS STRUCTURES: Unremarkable. CT/CT abdomen pelvis wo con IMPRESSION: Dilated small bowel suspicious for developing small bowel obstruction with ascites and omental carcinomatosis. Better evaluation could be performed with oral and IV contrast. Resolved bilateral pleural effusions compared to the prior study. Fleischner guidelines were followed.
--- NOTE | ~2021-03-05 | XR_ITS ---
EXAMINATION: XR CHEST CLINICAL INFORMATION: Leukocytosis COMPARISON: None TECHNIQUE: Frontal portable view of the chest was obtained. 2024 FINDINGS: Central port catheter tip in superior vena cava approximately 4 cm proximal to the caval atrial junction. There is no pneumothorax. The lungs are normally aerated. No pleural effusion. The heart size is normal. Cardiac mediastinal contours are normal. There is no pulmonary vascular congestion. Large spurs of the humeral head at the glenohumeral joint of both shoulders. Moderate degenerative spondylosis of the dorsal spine. XR/XR chest 1V IMPRESSION: No acute abnormality of the chest.
--- NOTE | 2021-03-05 16:24 | ED_ITS ---
HPI - Abdominal Pain General Chief Complaint: Abdominal Pain Stated Complaint: abd pain Time Seen by Provider: 03/05/21 16:24 Source: patient, EMS and science interpreter Mode of arrival: EMS Limitations: no limitations History of Present Illness HPI narrative: 66 yo female with anemia, ovarian cancer with mets per her repo rts follows at [facility] underwent chemo on 02/21 now c/o pain and nausea since yestery MD elicited complaint: abdominal pain Pertinent past history: other (ovarian cancer? vs stomach) Onset (ago): day(s) (1) Pain Consistency: constant Location: diffuse Severity: moderate Quality: fullness Radiation: none Migration to: no migration Exacerbating factors: eating Relieving factors: nothing Context: history of similar episodes and other (chemo) Associated symptoms: nausea and constipation Related Data Home Medications Medication Instructions Recorded Confirmed metformin 500 mg tablet 500 mg BIDWM 03/10/20 03/05/21 insulin glargine 100 unit/mL (3 10 unit SUBCUT BEDTIME 04/30/20 03/05/21 mL) subcutaneous pen atorvastatin 40 mg tablet 40 mg PO DAILY 05/01/20 03/05/21 hydrochlorothiazide 25 mg tablet 25 mg PO DAILY 05/01/20 03/05/21 lisinopril 40 mg tablet 40 mg PO DAILY 05/01/20 03/05/21 albuterol sulfate 90 mcg/actuation 2 puff PO Q4-6H PRN 03/05/21 03/05/21 aerosol inhaler (ProAir HFA) amlodipine 10 mg tablet 1 tab PO DAILY 03/05/21 03/05/21 ergocalciferol (vitamin D2) 1,250 1 cap PO WE 03/05/21 03/05/21 mcg (50,000 unit) capsule ondansetron HCl 4 mg tablet 1 - 2 tab PO BID PRN 03/05/21 03/05/21 Allergies Allergy/AdvReac Type Severity Reaction Status Date / Time No Known Allergies Allergy Verified 03/05/21 16:24 Review of Systems Review of Systems Constitutional : No Weight loss, No Fever, No Chills ENT/Mouth : No sore throat, No Rhinorrhea Eyes: No Swelling, No Redness Cardiovascular : No Chest Pain, No SOB, NoEdema Respiratory : No Cough, No Sputum, No Wheezing Gastrointestinal : Positive Nausea, Positive Vomiting, no Diarrhea, positive abdominal Pain, No Hematochezia, No Melena Genitourinary : No Dysuria, No Urinary Frequency, No Hematuria, No Urgency Musculoskeletal : No joint pain, No Myalgias, No Joint Swelling Skin : No Skin Lesions, No rash Neuro :pos Weakness, No Numbness, No Dizziness, No Headache Psych : No Anxiety/Panic, No Depression Heme/Lymph: No Bruising, No Lymphadenopathy Endocrine : No Polyuria, No Polydipsia All other systems reviewed and are negative. Physical Exam Vital Signs: Vital Signs: Last Vital Signs Temp 98.5 F 03/05/21 19:40 Pulse 88 03/05/21 19:40 Resp 16 03/05/21 19:40 BP 167/72 H 03/05/21 19:40 Pulse Ox 100 03/05/21 19:40 Body Mass Index 68.1 Appearance: Alert. Oriented X3. Dry heaving mild acute distress. Eyes: Pupils equal, round and reactive to light. ENT: Pharynx mild dry MM Neck: Normal inspection. Neck supple. CVS: Normal heart rate and rhythm. Pulses normal. Respiratory: No respiratory distress. Breath sounds normal. Abdomen: Soft and mild diffuse ttp no distention noted Skin: Skin warm and dry. Normal skin color. Normal skin turgor. Extremities: No lower extremity edema. No calf ttp Neuro: Oriented X 3. No motor deficit. No sensory deficit. Course Course Course Narrative: chronic leukocytosis not related to infection or severe sepsis lactic acidosis due to dehydration and not infection or severe sepsis will admit for further management, no vomiting will admit for hydration and pain control MDM - Abdominal Pain MDM Narrative Medical decision making narrative: 66 yo female with hx of anemia, diabetes, asthma, hx of stomach cancer s/p chemo on 02/21 c/o pain and nausea with diffuse pain at this time will need labs, IVF, IV anti emetics and CT scan for obstruction. Dispo per results and findings. Lab Data Result diagrams: 03/05/21 18:07 03/05/21 18:07 Labs: Lab Results 03/05/21 03/05/21 03/05/21 Range/Units 17:32 18:07 18:07 WBC 17.8 H (4.8-10.8) X10*3/uL RBC 4.33 (4.20-5.50) X10*6/uL Hgb 13.2 (12.0-16.0) g/dl Hct 41.7 (37.0-47.0) % MCV 96.3 (80.0-98.0) fL MCH 30.5 (27.0-33.0) pg MCHC 31.7 (31.0-35.0) g/dl RDW 14.0 (11.0-16.0) % Plt Count 226 (160-400) X10*3/uL MPV 9.7 (9.4-12.3) fL Immature Gran % (Auto) 0.3 (0.0-0.4) % Neut % (Auto) 78.6 H (45-73) % Lymph % (Auto) 16.0 L (20-40) % [place] % (Auto) 4.9 (2-11) % Eos % (Auto) 0.0 (0-4) % Baso % (Auto) 0.2 (0-2) % Lymph # (Auto) 2.9 (1.2-4.9) X10*3/uL [place] # (Auto) 0.9 (0.1-1.2) X10*3/uL Eos # (Auto) 0.0 (0.0-0.4) X10*3/uL Baso # (Auto) 0.0 (0.0-0.2) X10*3/uL Abs Immat Gran (auto) 0.06 H (0.00-0.03) X10*3/uL Absolute Neuts (auto) 14.0 H (2.0-8.3) x10*3/uL Absolute Nucleated RBC 0.000 (0.0-0.012) X10*3/uL Nucleated RBC % (auto) 0.0 (0.0-0.2) /100WBC Sodium 139 (135-145) mmol/L Potassium 4.0 (3.3-5.1) mmol/L Chloride 102 (96-108) mmol/L Carbon Dioxide 22 (22-29) mmol/L Anion Gap 19 (12-20) BUN 26 H (9-16) mg/dL Creatinine 1.22 (0.5-1.4) mg/dL Estim Creat Clear Calc 75.1 Estimated GFR 44 Random Glucose 111 (60-115) mg/dL Lactic Acid (0.5-2.0) mmol/L Calcium 9.4 (8.4-10.2) mg/dL Magnesium 1.8 (1.6-2.6) mg/dL Total Bilirubin 0.3 (0.0-1.0) mg/dL Direct Bilirubin 0.2 (0.0-0.5) mg/dL AST 20 (5-31) U/L ALT 17 (0-31) U/L Alkaline Phosphatase 67 (39-117) U/L Troponin I High Sens (<3.5-17.0) ng/L Total Protein 8.2 H (6.5-8.0) g/dL Albumin 4.4 (3.5-5.0) g/dL Lipase 28 (8-78) U/L COVID-19 (RAJESH) Negative (Negative) COVID-19 Clin Com See Note 03/05/21 03/05/21 Range/Units 18:07 18:07 WBC (4.8-10.8) X10*3/uL RBC (4.20-5.50) X10*6/uL Hgb (12.0-16.0) g/dl Hct (37.0-47.0) % MCV (80.0-98.0) fL MCH (27.0-33.0) pg MCHC (31.0-35.0) g/dl RDW (11.0-16.0) % Plt Count (160-400) X10*3/uL MPV (9.4-12.3) fL Immature Gran % (Auto) (0.0-0.4) % Neut % (Auto) (45-73) % Lymph % (Auto) (20-40) % [place] % (Auto) (2-11) % Eos % (Auto) (0-4) % Baso % (Auto) (0-2) % Lymph # (Auto) (1.2-4.9) X10*3/uL [place] # (Auto) (0.1-1.2) X10*3/uL Eos # (Auto) (0.0-0.4) X10*3/uL Baso # (Auto) (0.0-0.2) X10*3/uL Abs Immat Gran (auto) (0.00-0.03) X10*3/uL Absolute Neuts (auto) (2.0-8.3) x10*3/uL Absolute Nucleated RBC (0.0-0.012) X10*3/uL Nucleated RBC % (auto) (0.0-0.2) /100WBC Sodium (135-145) mmol/L Potassium (3.3-5.1) mmol/L Chloride (96-108) mmol/L Carbon Dioxide (22-29) mmol/L Anion Gap (12-20) BUN (9-16) mg/dL Creatinine (0.5-1.4) mg/dL Estim Creat Clear Calc Estimated GFR Random Glucose (60-115) mg/dL Lactic Acid 2.7 H* (0.5-2.0) mmol/L Calcium (8.4-10.2) mg/dL Magnesium (1.6-2.6) mg/dL Total Bilirubin (0.0-1.0) mg/dL Direct Bilirubin (0.0-0.5) mg/dL AST (5-31) U/L ALT (0-31) U/L Alkaline Phosphatase (39-117) U/L Troponin I High Sens 3.7 (<3.5-17.0) ng/L Total Protein (6.5-8.0) g/dL Albumin (3.5-5.0) g/dL Lipase (8-78) U/L COVID-19 (RAJESH) (Negative) COVID-19 Clin Com ECG Data Attestation: I personally reviewed and interpreted this ECG as follows: ECG interpretation date: 03/05/21 Interpretation: Rate: 75 Rhythm: NSR [place]: normal Normal P waves. Normal [place]LOY[place]. Normal QRS complex. ST T wave : nonspecific no DANIEL qTC: normal prior studies: artifact noted no acute ischemia The study has been interpreted contemporaneously by me. . Discharge Plan Discharge Clinical Impression: Abdominal pain, Acidosis, lactic, Nausea, Abdominal carcinomatosis Patient Disposition: Admitted As Inpatient [facility] Past Medical History Attestation statement: The following information was validated with the patient. Medical History Asthma Diabetes Gastric cancer Hyperlipidemia Hypertension Surgical History H/O section Social History Social History Household Members: Spouse Housing: Apartment Do you presently have visiting nurse or other home services: No Alcohol intake: never Advance Directives: No Advance Directives Information Provided: No service: No Current occupational status: employed
[2021-03-05 16:25] VITALS: BP 135/75; BP 149/69; PULSE 100; PULSE 92; RESP 18; TEMP 37; O2SAT 100; O2SAT 98; BMI 68.1
--- NOTE | 2021-03-05 16:27 | ECG_ITS ---
Test Reason : ABD PAIN Blood Pressure : / mmHG Vent. Rate : 075 BPM Atrial Rate : 075 BPM P-R Int : 140 ms QRS Dur : 086 ms QT Int : 358 ms P-R-T Axes : 064 049 052 degrees QTc Int : 399 ms Normal sinus rhythm Normal ECG When compared with ECG of 30-APR-2020 11:54, Heart rate has decreased Referred By: Flory Stewart Electronically Signed By:KEITH VILLARREAL MD
[2021-03-05] MEDS: Morphine Sulfate 4 MG/ML CARTRIDGE IVPUSH (17:45)
[2021-03-05] MEDS: 0.9 % Sodium Chloride 1,000 ML 999 ML IVCONT (17:45)
[2021-03-05] MEDS: Metoclopramide HCl 10 MG/2 ML VIAL 5 MG IVPUSH (17:46)
[2021-03-05] MEDS: diphenhydrAMINE HCL 50 MG/ML VIAL 25 MG IVPUSH (17:46)
--- NOTE | 2021-03-05 17:50 | PHA.MEDREC ---
Pharmacy Consult ? Medication Reconciliation Pharmacy has completed the medication reconciliation.
--- NOTE | 2021-03-05 17:58 | PC.NURSE ---
this iv failed 3 iv in bilat ac and r wrist before est iv 22 ga r la after est iv pt alerted this rn she has port. plan is to access port if labs cannot be drawn. pt grimacing and mostly remains in position, otherwise stoic.
[2021-03-05 18:01] LABS: COVID-19 Test Negative (Negative); IDNOW Serial# 9DD0AD1C
[2021-03-05 18:12] LABS: MANUAL DIFF FLAG NO
[2021-03-05 18:16] LABS: Basophils Percent Auto 0.2 % (0-2); Hematocrit 41.7 % (37.0-47.0); Hemoglobin 13.2 g/dl (12.0-16.0); Imm Gran Abs Auto 0.06 X10*3/uL (0.00-0.03); Imm Gran Pct Auto 0.3 % (0.0-0.4); Lymphocytes Absolute Auto 2.9 X10*3/uL (1.2-4.9); Mean Corpuscular HGB Conc 31.7 g/dl (31.0-35.0); Mean Corpuscular Hemoglobin 30.5 pg (27.0-33.0); Mean Corpuscular Volume 96.3 fL (80.0-98.0); Mean Platelet Volume 9.7 fL (9.4-12.3); Monocytes Absolute Auto 0.9 X10*3/uL (0.1-1.2); Monocytes Percent Auto 4.9 % (2-11); Neutrophils Percent Auto 78.6 % (45-73); Platelet Count 226 X10*3/uL (160-400); Red Blood Count 4.33 X10*6/uL (4.20-5.50); White Blood Count 17.8 X10*3/uL (4.8-10.8)
[2021-03-05 18:33] LABS: Alanine Aminotransferase 17 U/L (0-31); Albumin Level 4.4 g/dL (3.5-5.0); Alkaline Phosphatase 67 U/L (39-117); Anion Gap 19 (12-20); Aspartate Amino Transferase 20 U/L (5-31); Bilirubin Direct 0.2 mg/dL (0.0-0.5); Bilirubin Total 0.3 mg/dL (0.0-1.0); Blood Urea Nitrogen 26 mg/dL (9-16); Calcium 9.4 mg/dL (8.4-10.2); Carbon Dioxide 22 mmol/L (22-29); Chloride 102 mmol/L (96-108); Creatinine Clr Calc Pharmacy 75.1; Estimated Glomerular Filt Rate 44; Glucose Random 111 mg/dL (60-115); Lipase 28 U/L (8-78); Magnesium 1.8 mg/dL (1.6-2.6); Sodium 139 mmol/L (135-145); Total Protein 8.2 g/dL (6.5-8.0)
[2021-03-05 18:35] LABS: Troponin-I High Sensitivity 3.7 ng/L (<3.5-17.0)
[2021-03-05 18:38] LABS: Lactic Acid 2.7 mmol/L (0.5-2.0)
[2021-03-05 19:40] VITALS: BP 167/72; PULSE 88; RESP 16; TEMP 36.9; O2SAT 100
[2021-03-05 20:11] LABS: Reflex Lactate? Lactic Acid Added
--- NOTE | 2021-03-05 20:12 | P.HPHOSP_ITS ---
History of Present Illness Date of Service: 03/05/21 Chief Complaint: Abd pain 66-year-old female with a past medical history of hypertension, hyperlipidemia, diabetes, asthma, history of ovarian cancer with metasta sis/carcinomatosis/ascites, chronic leukocytosis, had recent chemotherapy on February 21 2021; presented to the hospital today with a chief complaint of abdominal discomfort. Patient reports that the past 3-4 days she has been having abdominal pain associated nausea; resulting decreased oral intake; denies any urinary symptoms. Abdominal pain is diffuse, crampy in nature, no associated symptoms. Denies any diarrhea. Denies any fever chills cough. Denies any numbness tingling or focal weakness. Denies headaches Patient reported that she was told that she had fluid in the stomach knee last visit with Oncology. Review of all other systems is negative except mentioned above ER course: Per ER team patient not have diffuse abdominal tenderness; no guarding no rigidity; CT abdomen showed on carcinomatosis/ascites/developing bowel obstruction; admitted to the hospital for further management. [facility] Medical History Asthma Diabetes Gastric cancer Hyperlipidemia Hypertension Pertinent family history: As mentioned above Surgical History H/O section Social History Household Members: Spouse Housing: Apartment Do you presently have visiting nurse or other home services: No Alcohol intake: never Advance Directives: No Advance Directives Information Provided: No service: No Current occupational status: employed Meds Allergies Allergy/AdvReac Type Severity Reaction Status Date / Time No Known Allergies Allergy Verified 03/05/21 16:24 Active Medications: Current Medications Acetaminophen (Acetaminophen Supp 650 Mg Supp.Rect) 650 mg OH Q6H PRN PRN Reason: Pain, Mild (Pain Scale 1-3) Albuterol/Ipratropium (Albuterol/Iprat 2.5/0.5mg 3 Ml Ampul.Neb) 3 ml INHALE RQ4H PRN PRN Reason: Shortness of Breath/Wheezing Amlodipine Besylate (Amlodipine Besylate 10 Mg Tablet) 10 mg PO DAILY CLAUDY; Protocol Atorvastatin Calcium (Atorvastatin Calcium 40 Mg Tablet) 40 mg PO BEDTIME CLAUDY Enoxaparin Sodium (Enoxaparin Sodium 40 Mg/0.4 Ml Syringe) 40 mg SUBCUT Q24H CLAUDY Ergocalciferol (Ergocalciferol (Vitamin D2) 1,250 Mcg Capsule) 1,250 mcg PO WE CLAUDY Hydromorphone HCl (Hydromorphone Hcl 0.5 Mg/0.5 Ml Syringe) 0.5 mg IVPUSH Q4H PRN; Protocol PRN Reason: Breakthrough Pain Dextrose/Sodium Chloride (D51/2ns) 1,000 mls @ 50 mls/hr IVCONT .Q20H CLAUDY Ceftriaxone Sodium 1 gm/ (Sodium Chloride) 50 mls @ 100 mls/hr IV Q24H CLAUDY Melatonin (Melatonin 3 Mg Tablet) 6 mg PO BEDTIME PRN PRN Reason: Insomnia Pharmacy Consult (Consult Rx Perform Med Rec) 1 each MISCELLANE ONCE PRN PRN Reason: Consult order Sodium Chloride (0.9 % Sodium Chloride Flush 3 Ml Syringe) 3 ml IVFLUSH QSHIFT [facility] Home Medications Medication Instructions Recorded Confirmed Last Taken Type metformin 500 mg tablet 500 mg BIDWM 03/10/20 03/05/21 03/05/21 History insulin glargine 100 unit/mL (3 10 unit SUBCUT BEDTIME 04/30/20 03/05/21 03/04/21 History mL) subcutaneous pen atorvastatin 40 mg tablet 40 mg PO DAILY 05/01/20 03/05/21 03/05/21 History hydrochlorothiazide 25 mg tablet 25 mg PO DAILY 05/01/20 03/05/21 03/05/21 History lisinopril 40 mg tablet 40 mg PO DAILY 05/01/20 03/05/21 03/05/21 History albuterol sulfate 90 mcg/actuation 2 puff PO Q4-6H PRN 03/05/21 03/05/21 Unknown History aerosol inhaler (ProAir HFA) amlodipine 10 mg tablet 1 tab PO DAILY 03/05/21 03/05/21 03/05/21 History ergocalciferol (vitamin D2) 1,250 1 cap PO WE 03/05/21 03/05/21 02/27/21 History mcg (50,000 unit) capsule ondansetron HCl 4 mg tablet 1 - 2 tab PO BID PRN 11/23/21 11/23/21 11/23/21 History Physical Exam Vital Signs and Narrative: Vital Signs: Last Vital Signs Temp 98.5 F 03/05/21 19:40 Pulse 88 03/05/21 19:40 Resp 16 03/05/21 19:40 BP 167/72 H 03/05/21 19:40 Pulse Ox 100 03/05/21 19:40 Body Mass Index 68.1 Gen: Appears be in no acute distress HEENT: NCAT, dry mucosa. Pulmonary: Vesicular breath sounds, fair air entry CVS: Normal S1-S2 Abdomen: BS+, Soft, tender diffusely, no guarding no rigidity. No fluctuance he. Extremities: Warm well perfused Neuro: Alert and awake. Grossly nonfocal Results Labs CBC and Chem 7: 03/05/21 18:07 03/05/21 18:07 Labs: Laboratory Results - last 24 hr 03/05/21 03/05/21 03/05/21 17:32 18:07 18:07 MCV 96.3 MCH 30.5 MCHC 31.7 RDW 14.0 Plt Count 226 MPV 9.7 Immature Gran % (Auto) 0.3 Neut % (Auto) 78.6 H Lymph % (Auto) 16.0 L [place] % (Auto) 4.9 Eos % (Auto) 0.0 Baso % (Auto) 0.2 Lymph # (Auto) 2.9 [place] # (Auto) 0.9 Eos # (Auto) 0.0 Baso # (Auto) 0.0 Abs Immat Gran (auto) 0.06 H Absolute Neuts (auto) 14.0 H Absolute Nucleated RBC 0.000 Nucleated RBC % (auto) 0.0 Anion Gap 19 Estim Creat Clear Calc 75.1 Estimated GFR 44 Random Glucose 111 Lactic Acid Calcium 9.4 Magnesium 1.8 Total Bilirubin 0.3 Direct Bilirubin 0.2 AST 20 ALT 17 Alkaline Phosphatase 67 Troponin I High Sens Total Protein 8.2 H Albumin 4.4 Lipase 28 COVID-19 (RAJESH) Negative COVID-19 Clin Com See Note 03/05/21 03/05/21 18:07 18:07 MCV MCH MCHC RDW Plt Count MPV Immature Gran % (Auto) Neut % (Auto) Lymph % (Auto) [place] % (Auto) Eos % (Auto) Baso % (Auto) Lymph # (Auto) [place] # (Auto) Eos # (Auto) Baso # (Auto) Abs Immat Gran (auto) Absolute Neuts (auto) Absolute Nucleated RBC Nucleated RBC % (auto) Anion Gap Estim Creat Clear Calc Estimated GFR Random Glucose Lactic Acid 2.7 H* Calcium Magnesium Total Bilirubin Direct Bilirubin AST ALT Alkaline Phosphatase Troponin I High Sens 3.7 Total Protein Albumin Lipase COVID-19 (RAJESH) COVID-19 Clin Com Imaging Radiologist's Impressions: Impressions Abdomen/Pelvis CT 03/05/21 16:26 IMPRESSION: Dilated small bowel suspicious for developing small bowel obstruction with ascites and omental carcinomatosis. Better evaluation could be performed with oral and IV contrast. Resolved bilateral pleural effusions compared to the prior study. Fleischner guidelines were followed. Assessment and Plan (1) Abdominal pain: Qualifiers: Abdominal location: generalized Qualified Code(s): R10.84 - Generalized abdominal pain Status: Acute (2) Acidosis, lactic: Status: Acute (3) Abdominal carcinomatosis: Status: Acute (4) Leukocytosis: Status: Acute (5) Abdominal ascites: Qualifiers: Ascites type: malignant Qualified Code(s): R18.0 - Malignant ascites Status: Acute (6) Diabetes: Status: Acute 66-year-old female with a past medical history of hypertension, hyperlipidemia, diabetes, asthma, history of ovarian cancer with metastasis/carcinomatosis/ascites, chronic leukocytosis, had recent chemotherapy on February 21 2021; presented to the hospital today with a chief complaint of abdominal discomfort. CT abdomen showed abdominal carcinomatosi s/ascites/developing bowel obstruction. Admitted for further management. Abdominal pain: As mentioned CT abdomen showed abdominal carcinomatosis/ascites/developing bowel obstruction. pt reports that she is passing gas. NPO IV fluids Pain control Zofran p.r.n. Ceftriaxone empirically general surgery consult History of ovarian cancer with metastatic/abdominal carcinomatosis/Ascites: On cology consult for further recommendations. Patient had recent chemotherapy on 02/21/2021. Leukocytosis: Appears chronic. Chest x-ray and urinalysis pending. Patient afebrile. History of diabetes: Insulin sliding scale. History of asthma: Stable History of hypertension: Continue amlodipine, hold lisinopril for now. DVT prophylaxis: Lovenox Code status: Full code Quality Stroke Does the patient have a stroke diagnosis?: No VTE Prior VTE?: No VTE Risk Level:: Medical - moderate - high VTE Device Contraindication: N/A - Device Ordered VTE Drug Contraindication: N/A - Med Ordered
[2021-03-05] MEDS: Enoxaparin Sodium 40 MG/0.4 ML SYRINGE SUBCUT (20:34)
[2021-03-05] MEDS: cefTRIAXone sodium 1 GM in 0.9 % Sodium Chloride 50 ML IV (20:34)
[2021-03-05 20:39] VITALS: BP 143/74; PULSE 74; RESP 16; O2SAT 97
[2021-03-05 21:18] LABS: ~Lactic Acid-LAB USE ONLY 2.4 mmol/L (0.5-2.0)
[2021-03-05] MEDS: Dextrose 5 % and 0.45 % NaCl 1,000 ML 50 ML IVCONT (21:27)
[2021-03-05 23:04] LABS: Reflex Lactate? 2 Y
[2021-03-05 23:33] LABS: ~Lactic Acid-LAB USE ONLY 2.1 mmol/L (0.5-2.0)
[2021-03-05] MEDS: 0.9 % Sodium Chloride Flush 3 ML SYRINGE IVFLUSH (23:38)
[2021-03-06] VITALS (13 sets, daily range): BP systolic 117–159; BP diastolic 55–94; PULSE 74–88; RESP 13–18; TEMP 36.6–37.1; O2SAT 94–100; BMI 32.0
--- NOTE | 2021-03-06 02:53 | PC.NURSE ---
PT escorted to bathroom to provide urine sample. PT ambulates with steady gait and no assist. Linens change on bed. PT VSS. Resting comfortably at this time. PT denies any pain at this time.
[2021-03-06 02:58] LABS: Appearance Urine CLEAR; Color Urine YELLOW; Glucose Urine UA NEG (NEG); Leukocyte Esterase Urine NEG (NEG); Nitrite Urine NEG (NEG); PH 5.5 (5.0-8.0); Specific Gravity - Urine 1.025 (1.005-1.025); Urine Blood NEG (NEG); Urine Ketones NEG (NEG); Urine Protein NEG (NEG-TRACE)
--- NOTE | 2021-03-06 05:52 | PC.NURSE ---
PT contact: Antoinette Thorne (daughter) - [phone]
[2021-03-06 07:13] LABS: Hemoglobin 11.3 g/dl (12.0-16.0); Red Blood Count 3.66 X10*6/uL (4.20-5.50); White Blood Count 15.3 X10*3/uL (4.8-10.8)
[2021-03-06 07:14] LABS: Basophils Percent Auto 0.2 % (0-2); Eosinophils Absolute Auto 0.1 X10*3/uL (0.0-0.4); Eosinophils Percent Auto 0.8 % (0-4); Hematocrit 34.8 % (37.0-47.0); Imm Gran Abs Auto 0.06 X10*3/uL (0.00-0.03); Imm Gran Pct Auto 0.4 % (0.0-0.4); Lymphocytes Absolute Auto 5.2 X10*3/uL (1.2-4.9); Lymphocytes Percent Auto 34.2 % (20-40); MANUAL DIFF FLAG SCAN; Mean Corpuscular HGB Conc 32.5 g/dl (31.0-35.0); Mean Corpuscular Hemoglobin 30.9 pg (27.0-33.0); Mean Corpuscular Volume 95.1 fL (80.0-98.0); Mean Platelet Volume 9.8 fL (9.4-12.3); Monocytes Absolute Auto 1.5 X10*3/uL (0.1-1.2); Monocytes Percent Auto 9.7 % (2-11); Neutrophils Absolute Auto 8.4 x10*3/uL (2.0-8.3); Neutrophils Percent Auto 54.7 % (45-73); Platelet Count 204 X10*3/uL (160-400); Red Cell Distribution Width 14.1 % (11.0-16.0); SCAN SMEAR FLAG 1
[2021-03-06] MEDS: 0.9 % Sodium Chloride Flush 3 ML SYRINGE IVFLUSH ×2 (07:24→17:10)
[2021-03-06 07:33] LABS: Anion Gap 12 (12-20); Blood Urea Nitrogen 22 mg/dL (9-16); Calcium 8.3 mg/dL (8.4-10.2); Carbon Dioxide 25 mmol/L (22-29); Chloride 107 mmol/L (96-108); Creatinine Clr Calc Pharmacy 91.5; Estimated Glomerular Filt Rate 55; Glucose Random 97 mg/dL (60-115); Potassium 3.9 mmol/L (3.3-5.1); Sodium 140 mmol/L (135-145)
[2021-03-06 07:40] LABS: SLIDE REVIEW VERIFIED
--- NOTE | 2021-03-06 08:45 | PC.NURSE ---
dr quach at bedside, pt family aware of plan of care off admission.
[2021-03-06] MEDS: amLODIPine Besylate 10 MG TABLET PO (08:51)
[2021-03-06] MEDS: Ergocalciferol (Vitamin D2) 1,250 MCG CAPSULE 1250 MCG PO (09:45)
--- NOTE | 2021-03-06 10:21 | PM.CNGS ---
History of Present Illness Consult details Consult date: 03/06/21 <Татьяна Jackson PA-C - Last Filed: 03/06/21 12:39> Reason for consult: abdominal pain <MALU Heredia Last Filed: 03/06/21 12:39> Requesting physician: Chavez Miller <Татьяна Jackson PA-C Last Filed: 03/06/21 12:39> Narrative: 66-year-old female with multiple medical comorbidities including hypertension, hyperlipidemia, diabetes, asthma, ovarian cancer with metastasis/carcinomatosis/ascites undergoing chemotherapy at [facility] who presented to the ED with a complaint of abdominal discomfort.?Patient reports that the pain began on Thursday and was located in the epigastric area and was crampy in nature. It was associated with nausea without vomiting. This therefore resulted decreased oral intake. She has been passing flatus and her last BM was yesterday. Work up in the ED included a CT scan abd/pelvis which demonstrated ascites, carcinomatosis and small bowel dilatation. Labs were significant for a leukocytosis which appears chronic and a lactic acidosis which has improved. She feels better this morning with decreased pain. She is now passing flatus. She feels hungry. <Татьяна Jackson PA-C Last Filed: 03/06/21 12:39> Review of Systems Constitutional: Constitutional: Denies chills and Denies fever(s) <MALU Heredia Last Filed: 03/06/21 12:39> ENT: Denies dizziness <MALU Heredia Last Filed: 03/06/21 12:39> Cardiovascular: Cardiovascular: Denies chest pain and Denies dyspnea <MALU Heredia Last Filed: 03/06/21 12:39> Respiratory: Respiratory: Denies cough and Denies dyspnea <MALU Heredia Last Filed: 03/06/21 12:39> Gastrointestinal: Gastrointestinal: Reports as per HPI, Denies constipation and Denies diarrhea <MALU Heredia Last Filed: 03/06/21 12:39> Genitourinary: Genitourinary: Denies hematuria and Denies dysuria <Татьяна Jackson PA-C - Last Filed: 03/06/21 12:39> Integumentary/Breasts: Skin/Breast: Denies rash <Татьяна Jackson PA-C - Last Filed: 03/06/21 12:39> Neurologic: Denies dizziness <Татьяна Jackson PA-C - Last Filed: 03/06/21 12:39> [facility] Past Medical History Medical History: Medical History (Updated 03/06/21 @ 10:30 by Татьяна Jackson PA-C) Asthma Diabetes Gastric cancer Hyperlipidemia Hypertension <Татьяна Jackson PA-C - Last Filed: 03/06/21 12:39> Surgical History Surgical History: Surgical History (Updated 03/06/21 @ 12:36 by Татьяна Jackson PA-C) H/O section S/P total hysterectomy (~05/2020) <Татьяна Jackson PA-C - Last Filed: 03/06/21 12:39> Social History Social History: Social History Household Members: Spouse Housing: Apartment Do you presently have visiting nurse or other home services: No Alcohol intake: never Patient Tobacco Use Status: Never used Tobacco Use of substances other than those prescribed or required for medical reasons: No Advance Directives: No Advance Directives Information Provided: No service: No Current occupational status: employed and disabled <Татьяна Jackson PA-C - Last Filed: 03/06/21 12:39> Meds Allergies/Adverse reactions: Allergies Allergy/AdvReac Type Severity Reaction Status Date / Time No Known Allergies Allergy Verified 03/05/21 16:24 <Татьяна Jackson PA-C - Last Filed: 03/06/21 12:39> Active Medications: Current Medications Acetaminophen (Acetaminophen Supp 650 Mg Supp.Rect) 650 mg [place] Q6H PRN PRN Reason: Pain, Mild (Pain Scale 1-3) Albuterol/Ipratropium (Albuterol/Iprat 2.5/0.5mg 3 Ml Ampul.Neb) 3 ml INHALE RQ4H PRN PRN Reason: Shortness of Breath/Wheezing Amlodipine Besylate (Amlodipine Besylate 10 Mg Tablet) 10 mg PO DAILY [facility]; Protocol Last Admin: 03/06/21 08:51 Dose: 10 mg Documented by: Atorvastatin Calcium (Atorvastatin Calcium 40 Mg Tablet) 40 mg PO BEDTIME CLAUDY Enoxaparin Sodium (Enoxaparin Sodium 40 Mg/0.4 Ml Syringe) 40 mg SUBCUT Q24H [facility] Last Admin: 03/05/21 20:34 Dose: 40 mg Documented by: Ergocalciferol (Ergocalciferol (Vitamin D2) 1,250 Mcg Capsule) 1,250 mcg PO WE [facility] Last Admin: 03/06/21 09:45 Dose: 1,250 mcg Documented by: Hydromorphone HCl (Hydromorphone Hcl 0.5 Mg/0.5 Ml Syringe) 0.5 mg IVPUSH Q4H PRN; Protocol PRN Reason: Breakthrough Pain Dextrose/Sodium Chloride (D51/2ns) 1,000 mls @ 50 mls/hr IVCONT .Q20H [facility] Last Admin: 03/05/21 21:27 Dose: 50 mls/hr Documented by: Ceftriaxone Sodium 1 gm/ (Sodium Chloride) 50 mls @ 100 mls/hr IV Q24H [facility] Last Infusion: 03/05/21 21:00 Dose: Infused Documented by: Melatonin (Melatonin 3 Mg Tablet) 6 mg PO BEDTIME PRN PRN Reason: Insomnia Pharmacy Consult (Consult Rx Perform Med Rec) 1 each MISCELLANE ONCE PRN PRN Reason: Consult order Sodium Chloride (0.9 % Sodium Chloride Flush 3 Ml Syringe) 3 ml IVFLUSH QSHIFT [facility] Last Admin: 03/06/21 07:24 Dose: 3 ml Documented by: <Татьяна Jackson PA-C - Last Filed: 03/06/21 12:39> Home medications: Home Medications Medication Instructions Recorded Confirmed Last Taken Type metformin 500 mg tablet 500 mg BIDWM 03/10/20 03/05/21 03/05/21 History insulin glargine 100 unit/mL (3 10 unit SUBCUT BEDTIME 04/30/20 03/05/21 03/04/21 History mL) subcutaneous pen atorvastatin 40 mg tablet 40 mg PO DAILY 05/01/20 03/05/21 03/05/21 History hydrochlorothiazide 25 mg tablet 25 mg PO DAILY 05/01/20 03/05/21 03/05/21 History lisinopril 40 mg tablet 40 mg PO DAILY 05/01/20 03/05/21 03/05/21 History albuterol sulfate 90 mcg/actuation 2 puff PO Q4-6H PRN 03/05/21 03/05/21 Unknown History aerosol inhaler (ProAir HFA) amlodipine 10 mg tablet 1 tab PO DAILY 03/05/21 03/05/21 03/05/21 History ergocalciferol (vitamin D2) 1,250 1 cap PO WE 03/05/21 03/05/21 02/27/21 History mcg (50,000 unit) capsule ondansetron HCl 4 mg tablet 1 - 2 tab PO BID PRN 03/05/21 03/05/21 03/05/21 History <Татьяна Jackson PA-C - Last Filed: 03/06/21 12:39> Physical Exam Vital Signs: Vital Signs: Last Vital Signs Temp 98.2 F 03/06/21 07:32 Pulse 76 03/06/21 08:51 Resp 16 03/06/21 08:50 BP 139/64 03/06/21 08:51 Pulse Ox 98 03/06/21 08:50 Body Mass Index 68.1 <Татьяна Jackson PA-C Last Filed: 03/06/21 12:39> Const: General: comfortable, no acute distress and alert <MALU Heredia Last Filed: 03/06/21 12:39> Orientation/consciousness: patient oriented x3 <Татьяна Jackson PA-C Last Filed: 03/06/21 12:39> Resp: Effort & Inspection: normal respiratory effort <MALU Heredia Last Filed: 03/06/21 12:39> GI: Inspection: No distended and Yes scar (midline extending from superior to umbilicus to pelvis) <MALU Heredia Last Filed: 03/06/21 12:39> Palpation (GI): Soft to palpation, Tenderness to palpation present (GI) (very mild epigastric tenderness), no guarding and not rigid <MALU Heredia Last Filed: 03/06/21 12:39> Percussion: Yes normal to percussion <Татьяна Jackson PA-C - Last Filed: 03/06/21 12:39> Skin: Other: warm and dry <Татьяна Jackson PA-C - Last Filed: 03/06/21 12:39> General skin exam: no rashes or lesions noted <MALU Heredia Last Filed: 03/06/21 12:39> Neuro: General: patient oriented x3 <Татьяна Jackson PA-C - Last Filed: 03/06/21 12:39> Extrem: General: Yes no clubbing, cyanosis or edema <MALU Heredia Last Filed: 03/06/21 12:39> Results Labs Result diagrams: : 03/06/21 06:42 03/06/21 06:42 <MALU Heredia Last Filed: 03/06/21 12:39> Labs: Abnormal lab results 03/05/21 03/05/21 03/05/21 Range/Units 18:07 18:07 18:07 WBC 17.8 H (4.8-10.8) X10*3/uL RBC (4.20-5.50) X10*6/uL Hgb (12.0-16.0) g/dl Hct (37.0-47.0) % Neut % (Auto) 78.6 H (45-73) % Lymph % (Auto) 16.0 L (20-40) % Lymph # (Auto) (1.2-4.9) X10*3/uL Yell # (Auto) (0.1-1.2) X10*3/uL Abs Immat Gran (auto) 0.06 H (0.00-0.03) X10*3/uL Absolute Neuts (auto) 14.0 H (2.0-8.3) x10*3/uL BUN 26 H (9-16) mg/dL Lactic Acid 2.7 H* (0.5-2.0) mmol/L Lactic Acid Fup @ 2Hr (0.5-2.0) mmol/L Lactic Acid Fup @ 4Hr (0.5-2.0) mmol/L Calcium (8.4-10.2) mg/dL Total Protein 8.2 H (6.5-8.0) g/dL 03/05/21 03/05/21 03/06/21 Range/Units 21:01 23:11 06:42 WBC 15.3 H (4.8-10.8) X10*3/uL RBC 3.66 L (4.20-5.50) X10*6/uL Hgb 11.3 L (12.0-16.0) g/dl Hct 34.8 L (37.0-47.0) % Neut % (Auto) (45-73) % Lymph % (Auto) (20-40) % Lymph # (Auto) 5.2 H (1.2-4.9) X10*3/uL Yell # (Auto) 1.5 H (0.1-1.2) X10*3/uL Abs Immat Gran (auto) 0.06 H (0.00-0.03) X10*3/uL Absolute Neuts (auto) 8.4 H (2.0-8.3) x10*3/uL BUN (9-16) mg/dL Lactic Acid (0.5-2.0) mmol/L Lactic Acid Fup @ 2Hr 2.4 H* (0.5-2.0) mmol/L Lactic Acid Fup @ 4Hr 2.1 H* (0.5-2.0) mmol/L Calcium (8.4-10.2) mg/dL Total Protein (6.5-8.0) g/dL 03/06/21 Range/Units 06:42 WBC (4.8-10.8) X10*3/uL RBC (4.20-5.50) X10*6/uL Hgb (12.0-16.0) g/dl Hct (37.0-47.0) % Neut % (Auto) (45-73) % Lymph % (Auto) (20-40) % Lymph # (Auto) (1.2-4.9) X10*3/uL Yell # (Auto) (0.1-1.2) X10*3/uL Abs Immat Gran (auto) (0.00-0.03) X10*3/uL Absolute Neuts (auto) (2.0-8.3) x10*3/uL BUN 22 H (9-16) mg/dL Lactic Acid (0.5-2.0) mmol/L Lactic Acid Fup @ 2Hr (0.5-2.0) mmol/L Lactic Acid Fup @ 4Hr (0.5-2.0) mmol/L Calcium 8.3 L D (8.4-10.2) mg/dL Total Protein (6.5-8.0) g/dL Short CBC 03/05/21 03/06/21 Range/Units 18:07 06:42 WBC 17.8 H 15.3 H (4.8-10.8) X10*3/uL Hgb 13.2 11.3 L (12.0-16.0) g/dl Hct 41.7 34.8 L (37.0-47.0) % Plt Count 226 204 (160-400) X10*3/uL BMP 03/05/21 03/06/21 18:07 06:42 Sodium 139 140 Potassium 4.0 3.9 Chloride 102 107 Carbon Dioxide 22 25 BUN 26 H 22 H Creatinine 1.22 1.00 Calcium 9.4 8.3 L D Liver Function 03/05/21 Range/Units 18:07 Total Bilirubin 0.3 (0.0-1.0) mg/dL Direct Bilirubin 0.2 (0.0-0.5) mg/dL AST 20 (5-31) U/L ALT 17 (0-31) U/L Alkaline Phosphatase 67 (39-117) U/L Albumin 4.4 (3.5-5.0) g/dL Urine 03/06/21 Range/Units 02:52 Urine Color YELLOW Urine Appearance CLEAR Urine pH 5.5 (5.0-8.0) Ur Specific [place] 1.025 (1.005-1.025) Urine Protein NEG (NEG-TRACE) MG/DL Urine Glucose (UA) NEG (NEG) MG/DL All other labs normal. <Татьяна Jackson PA-C - Last Filed: 03/06/21 12:39> Assessment and Plan (1) Abdominal carcinomatosis: Status: Acute <Татьяна Jackson PA-C - Last Filed: 03/06/21 12:39> (2) Ovarian cancer: Status: Acute <аТтьяна Jackson PA-C - Last Filed: 03/06/21 12:39> (3) SBO (small bowel obstruction): Status: Acute <Татьяна Jackson PA-C - Last Filed: 03/06/21 12:39> 66-year-old female with multiple medical comorbidities including hypertension, hyperlipidemia, diabetes, asthma, ovarian cancer with metastasis/carcinomatosis/ascites undergoing chemotherapy at [facility] who presented with complaints of abdominal pain and nausea with a CT scan demonstrating carcinomatosis, ascites and small bowel dilatation. She is clinically not obstructed and is passing continuous flatus. Her abdominal pain may be secondary to the carcinomatosis itself. Will advance to clear liquids. If tolerating can advance further. Lactic acidosis likely secondary to hypovolemia due to dehydration from her decreased PO intake. Patient independently interviewed, examined; reviewed CT abdomen and pelvis. Unfortunately patient is found to have diffuse carcinomatosis and omental caking resulting in ileus/obstructive symptoms. Surgical intervention is unlikely to improve this finding. Agree with the above assessment and plan. Supportive care. <Татьяна Jackson PA-C - Last Filed: 03/06/21 12:39> 66-year-old female with multiple medical comorbidities including hypertension, hyperlipidemia, diabetes, asthma, ovarian cancer with metastasis/carcinomatosis/ascites undergoing chemotherapy at [facility] who presented with complaints of abdominal pain and nausea with a CT scan demonstrating carcinomatosis, ascites and small bowel dilatation consistent with SBO. Given the patient's metastatic ovarian cancer and carcinomatosis, we can continue with nonoperative management of this SBO. Can hold off on NGT insertion unless she begans to vomit. Cont NPO status, IVF. Encouraged OOB/ambulation. Await return of GI function. Patient independently interviewed, examined; reviewed CT abdomen and pelvis. Unfortunately patient is found to have diffuse carcinomatosis and omental caking resulting in ileus/obstructive symptoms. Surgical intervention is unlikely to improve this finding. Agree with the above assessment and plan. Supportive care. <Eliot Hercules MD - Last Filed: 03/06/21 11:17> Procedures Date of Service Date of Service: 03/06/21 <Eliot Hercules MD - Last Filed: 03/06/21 11:17>
--- NOTE | 2021-03-06 11:02 | PC.NURSE ---
pt's daughter at bedside aware of plan of care.
--- NOTE | 2021-03-06 11:30 | PC.NURSE ---
pt's daughter robert ([phone]) would like to be called by the surgeon after he has eval patient.
--- NOTE | 2021-03-06 12:00 | MHC.CM.PN ---
Met with patient and lighting engineer in regards to discharge planning. Patient lives with her , ambulates independently and has a CHAIN SPLITTER through [employer]. Patient's daughter, Antoinette is her CHAIN SPLITTER. PCP verified. HCP completed, signed and witnessed. Original given to patient. Patient received 3 Moderna vaccines. Antoinette will transport patient home when medically stable. Continue to monitor for d/c needs.
--- NOTE | 2021-03-06 12:09 | P.PNIM_ITS ---
Subjective Subjective Date of Service: 03/06/21 Interval History: cc: abd pain interval history: improvement, no bm yet Cardiovascular Cardiovascular: Reports no additional cardiovascular complaints Respiratory Respiratory: Reports no additional respiratory complaints Physical Exam Vital Signs: Vital Signs: Last Vital Signs Temp 98.4 F 03/06/21 11:00 Pulse 81 03/06/21 11:00 Resp 14 03/06/21 11:00 BP 159/87 H 03/06/21 11:00 Pulse Ox 99 03/06/21 11:00 Body Mass Index 68.1 General: AO X 3, no acute distress Resp: CTA bilateral, no accessory muscles used CVS: S1,S2,RRR GI: soft, non tender, distended Neuro: motor grossly intact, alert Psych: appropriate affect, appropriate insight Objective Data Active Medications Acetaminophen (Acetaminophen Supp 650 Mg Supp.Rect) 650 mg [place] Q6H PRN PRN Reason: Pain, Mild (Pain Scale 1-3) Albuterol/Ipratropium (Albuterol/Iprat 2.5/0.5mg 3 Ml Ampul.Neb) 3 ml INHALE RQ4H PRN PRN Reason: Shortness of Breath/Wheezing Amlodipine Besylate (Amlodipine Besylate 10 Mg Tablet) 10 mg PO DAILY [facility]; Protocol Last Admin: 03/06/21 08:51 Dose: 10 mg Documented by: TOSIN Atorvastatin Calcium (Atorvastatin Calcium 40 Mg Tablet) 40 mg PO BEDTIME [facility] Enoxaparin Sodium (Enoxaparin Sodium 40 Mg/0.4 Ml Syringe) 40 mg SUBCUT Q24H [facility] Last Admin: 03/05/21 20:34 Dose: 40 mg Documented by: KONSTANTIN Ergocalciferol (Ergocalciferol (Vitamin D2) 1,250 Mcg Capsule) 1,250 mcg PO WE [facility] Last Admin: 03/06/21 09:45 Dose: 1,250 mcg Documented by: TOSIN Hydromorphone HCl (Hydromorphone Hcl 0.5 Mg/0.5 Ml Syringe) 0.5 mg IVPUSH Q4H PRN; Protocol PRN Reason: Breakthrough Pain Dextrose/Sodium Chloride (D51/2ns) 1,000 mls @ 50 mls/hr IVCONT .Q20H [facility] Last Admin: 03/05/21 21:27 Dose: 50 mls/hr Documented by: YOANDY Ceftriaxone Sodium 1 gm/ (Sodium Chloride) 50 mls @ 100 mls/hr IV Q24H [facility] Last Infusion: 03/05/21 21:00 Dose: 0 mls/hr Documented by: YOANDY Melatonin (Melatonin 3 Mg Tablet) 6 mg PO BEDTIME PRN PRN Reason: Insomnia Pharmacy Consult (Consult Rx Perform Med Rec) 1 each MISCELLANE ONCE PRN PRN Reason: Consult order Sodium Chloride (0.9 % Sodium Chloride Flush 3 Ml Syringe) 3 ml IVFLUSH QSHIFT [facility] Last Admin: 03/06/21 07:24 Dose: 3 ml Documented by: TOSIN Labs CBC & Chem 7: 03/06/21 06:42 03/06/21 06:42 Labs: Laboratory Results - last 24 hr 03/05/21 03/05/21 03/05/21 17:32 18:07 18:07 MCV 96.3 MCH 30.5 MCHC 31.7 RDW 14.0 Plt Count 226 MPV 9.7 Immature Gran % (Auto) 0.3 Neut % (Auto) 78.6 H Lymph % (Auto) 16.0 L [place] % (Auto) 4.9 Eos % (Auto) 0.0 Baso % (Auto) 0.2 Lymph # (Auto) 2.9 [place] # (Auto) 0.9 Eos # (Auto) 0.0 Baso # (Auto) 0.0 Abs Immat Gran (auto) 0.06 H Absolute Neuts (auto) 14.0 H Absolute Nucleated RBC 0.000 Nucleated RBC % (auto) 0.0 Smear Tech's Comments Anion Gap 19 Estim Creat Clear Calc 75.1 Estimated GFR 44 Random Glucose 111 Lactic Acid Lactic Acid Fup @ 2Hr Lactic Acid Fup @ 4Hr Calcium 9.4 Magnesium 1.8 Total Bilirubin 0.3 Direct Bilirubin 0.2 AST 20 ALT 17 Alkaline Phosphatase 67 Troponin I High Sens Total Protein 8.2 H Albumin 4.4 Lipase 28 Urine Color Urine Appearance Urine pH Ur Specific [place] Urine Protein Urine Glucose (UA) Urine Ketones Urine Blood Urine Nitrite Ur Leukocyte Esterase COVID-19 (RAJESH) Negative COVID-19 Clin Com See Note 03/05/21 03/05/21 03/05/21 18:07 18:07 21:01 MCV MCH MCHC RDW Plt Count MPV Immature Gran % (Auto) Neut % (Auto) Lymph % (Auto) [place] % (Auto) Eos % (Auto) Baso % (Auto) Lymph # (Auto) [place] # (Auto) Eos # (Auto) Baso # (Auto) Abs Immat Gran (auto) Absolute Neuts (auto) Absolute Nucleated RBC Nucleated RBC % (auto) Smear Tech's Comments Anion Gap Estim Creat Clear Calc Estimated GFR Random Glucose Lactic Acid 2.7 H* Lactic Acid Fup @ 2Hr 2.4 H* Lactic Acid Fup @ 4Hr Calcium Magnesium Total Bilirubin Direct Bilirubin AST ALT Alkaline Phosphatase Troponin I High Sens 3.7 Total Protein Albumin Lipase Urine Color Urine Appearance Urine pH Ur Specific [place] Urine Protein Urine Glucose (UA) Urine Ketones Urine Blood Urine Nitrite Ur Leukocyte Esterase COVID-19 (RAJESH) COVID-[employer] 03/05/21 03/06/21 03/06/21 23:11 02:52 06:42 MCV 95.1 MCH 30.9 MCHC 32.5 RDW 14.1 Plt Count 204 MPV 9.8 Immature Gran % (Auto) 0.4 Neut % (Auto) 54.7 Lymph % (Auto) 34.2 [place] % (Auto) 9.7 Eos % (Auto) 0.8 Baso % (Auto) 0.2 Lymph # (Auto) 5.2 H [place] # (Auto) 1.5 H Eos # (Auto) 0.1 Baso # (Auto) 0.0 Abs Immat Gran (auto) 0.06 H Absolute Neuts (auto) 8.4 H Absolute Nucleated RBC 0.000 Nucleated RBC % (auto) 0.0 Smear Tech's Comments VERIFIED Anion Gap Estim Creat Clear Calc Estimated GFR Random Glucose Lactic Acid Lactic Acid Fup @ 2Hr Lactic Acid Fup @ 4Hr 2.1 H* Calcium Magnesium Total Bilirubin Direct Bilirubin AST ALT Alkaline Phosphatase Troponin I High Sens Total Protein Albumin Lipase Urine Color YELLOW Urine Appearance CLEAR Urine pH 5.5 Ur Specific [place] 1.025 Urine Protein NEG Urine Glucose (UA) NEG Urine Ketones NEG Urine Blood NEG Urine Nitrite NEG Ur Leukocyte Esterase NEG COVID-19 (RAJESH) COVID-19 [employer] 03/06/21 06:42 MCV MCH MCHC RDW Plt Count MPV Immature Gran % (Auto) Neut % (Auto) Lymph % (Auto) [place] % (Auto) Eos % (Auto) Baso % (Auto) Lymph # (Auto) [place] # (Auto) Eos # (Auto) Baso # (Auto) Abs Immat Gran (auto) Absolute Neuts (auto) Absolute Nucleated RBC Nucleated RBC % (auto) Smear Tech's Comments Anion Gap 12 Estim Creat Clear Calc 91.5 Estimated GFR 55 Random Glucose 97 Lactic Acid Lactic Acid Fup @ 2Hr Lactic Acid Fup @ 4Hr Calcium 8.3 L D Magnesium Total Bilirubin Direct Bilirubin AST ALT Alkaline Phosphatase Troponin I High Sens Total Protein Albumin Lipase Urine Color Urine Appearance Urine pH Ur Specific [place] Urine Protein Urine Glucose (UA) Urine Ketones Urine Blood Urine Nitrite Ur Leukocyte Esterase COVID-19 (RAJESH) COVID-19 Clin Com Assessment and Plan (1) SBO (small bowel obstruction): Status: Acute Assessment and Plan: 66-year-old female with a past medical history of hypertension, hyperlipidemia, diabetes, asthma, history of ovarian cancer with metastasis/carcinomatosis/ascites, chronic leukocytosis, had recent chemotherapy on February 21 2021; presented to the hospital with a chief complaint of abdominal discomfort.? CT abdomen showed abdominal carcinomatosis/ascites/developing bowel obstruction Abdominal pain:?abdominal carcinomatosis/ascites/developing bowel obstruction. improved, passing gas, no BM surgery following, continue npo for now, ivf empiric abx History of ovarian cancer with metastatic/abdominal carcinomatosis/Ascites:? outpatient follow up with oncology DM insulin, monitor poc mild intermittent asthma stable, prn nebs HTN amlodipine hold lisinopril DVT prophylaxis:? Lovenox Code status: Full code Quality Stroke Does the patient have a stroke diagnosis?: No VTE Prior VTE?: No VTE Risk Level:: Medical - moderate - high VTE Device Contraindication: N/A - Device Ordered VTE Drug Contraindication: N/A - Med Ordered
--- NOTE | 2021-03-06 14:28 | PC.NURSE ---
pt did not drink any of the liquids on her tray states that she has a pain in her abd, 07/21, aware
[2021-03-06] MEDS: HYDROmorphone HCl 0.5 MG/0.5 ML SYRINGE IVPUSH (14:37)
--- NOTE | 2021-03-06 15:58 | PC.NURSE ---
Report received from Radha OVALLE. Patient asleep in bed at this time. Appears comfortable. Equal chest rise/fall. Respirations regular and even. Skin pwd. Awaiting admission. Room available but floor unable to take report at this time.
[2021-03-06] MEDS: Dextrose 5 % and 0.45 % NaCl 1,000 ML 50 ML IVCONT (17:09)
--- NOTE | 2021-03-06 18:22 | PC.NURSE ---
Report given to [facility] nurse. Patient remains comfortable resting on stretcher. Respirations regular and even. Skin PWD. Awaiting transfer to floor.
[2021-03-06 19:38] LABS: Glucose, Whole Blood 84 mg/dL (60-115)
[2021-03-06] MEDS: cefTRIAXone sodium 1 GM in 0.9 % Sodium Chloride 50 ML IV (20:13)
[2021-03-06] MEDS: Atorvastatin Calcium 40 MG TABLET PO (20:14)
[2021-03-06] MEDS: Enoxaparin Sodium 40 MG/0.4 ML SYRINGE SUBCUT (20:14)
[2021-03-06 22:11] LABS: Glucose, Whole Blood 113 mg/dL (60-115)
[2021-03-07] VITALS (7 sets, daily range): BP systolic 118–156; BP diastolic 58–69; PULSE 73–90; RESP 16–18; TEMP 36.6–37.6; O2SAT 97–100
[2021-03-07] MEDS: 0.9 % Sodium Chloride Flush 3 ML SYRINGE IVFLUSH (00:34)
[2021-03-07 07:10] LABS: Hematocrit 35.2 % (37.0-47.0); Hemoglobin 11.4 g/dl (12.0-16.0); Mean Corpuscular HGB Conc 32.4 g/dl (31.0-35.0); Mean Corpuscular Hemoglobin 30.3 pg (27.0-33.0); Mean Corpuscular Volume 93.6 fL (80.0-98.0); Platelet Count 217 X10*3/uL (160-400); Red Blood Count 3.76 X10*6/uL (4.20-5.50); Red Cell Distribution Width 13.6 % (11.0-16.0); White Blood Count 14.9 X10*3/uL (4.8-10.8)
[2021-03-07 07:42] LABS: Anion Gap 15 (12-20); Blood Urea Nitrogen 14 mg/dL (9-16); Calcium 8.2 mg/dL (8.4-10.2); Carbon Dioxide 23 mmol/L (22-29); Chloride 104 mmol/L (96-108); Creatinine Clr Calc Pharmacy 66.9; Estimated Glomerular Filt Rate > 60; Glucose Fasting 105 mg/dL (60-99); Potassium 3.8 mmol/L (3.3-5.1); Sodium 138 mmol/L (135-145)
--- NOTE | 2021-03-07 10:16 | HO.PM.IMPN ---
Subjective Subjective Date of Service: 03/07/21 Interval History: cc: abd pain interval history: initially improved, but then worsened, did not tolerate clear liquids Cardiovascular Cardiovascular: Reports no additional cardiovascular complaints Respiratory Respiratory: Reports no additional respiratory complaints Physical Exam Vital Signs: Vital Signs: Last Vital Signs Temp 98.7 F 03/07/21 08:00 Pulse 79 03/07/21 08:00 Resp 18 03/07/21 08:00 BP 156/64 H 03/07/21 08:00 Pulse Ox 98 03/07/21 08:00 Body Mass Index 32.0 General: AO X 3, no acute distress Resp:? CTA bilateral, no accessory muscles used CVS: S1,S2,RRR GI: soft, non tender,? distended Neuro:? motor grossly intact, alert Psych: appropriate affect, appropriate insight? Objective Data Active Medications Acetaminophen (Acetaminophen Supp 650 Mg Supp.Rect) 650 mg [place] Q6H PRN PRN Reason: Pain, Mild (Pain Scale 1-3) Albuterol/Ipratropium (Albuterol/Iprat 2.5/0.5mg 3 Ml Ampul.Neb) 3 ml INHALE RQ4H PRN PRN Reason: Shortness of Breath/Wheezing Amlodipine Besylate (Amlodipine Besylate 10 Mg Tablet) 10 mg PO DAILY [facility]; Protocol Last Admin: 03/06/21 08:51 Dose: 10 mg Documented by: TOSIN Atorvastatin Calcium (Atorvastatin Calcium 40 Mg Tablet) 40 mg PO BEDTIME [facility] Last Admin: 03/06/21 20:14 Dose: 40 mg Documented by: RAMON Enoxaparin Sodium (Enoxaparin Sodium 40 Mg/0.4 Ml Syringe) 40 mg SUBCUT Q24H [facility] Last Admin: 03/06/21 20:14 Dose: 40 mg Documented by: RAMON Ergocalciferol (Ergocalciferol (Vitamin D2) 1,250 Mcg Capsule) 1,250 mcg PO WE [facility] Last Admin: 03/06/21 09:45 Dose: 1,250 mcg Documented by: TOSIN Hydromorphone HCl (Hydromorphone Hcl 0.5 Mg/0.5 Ml Syringe) 0.5 mg IVPUSH Q4H PRN; Protocol PRN Reason: Breakthrough Pain Last Admin: 03/06/21 14:37 Dose: 0.5 mg Documented by: TOSIN Dextrose/Sodium Chloride (D51/2ns) 1,000 mls @ 50 mls/hr IVCONT .Q20H [facility] Last Admin: 03/06/21 17:09 Dose: 50 mls/hr Documented by: SANDRA Ceftriaxone Sodium 1 gm/ (Sodium Chloride) 50 mls @ 100 mls/hr IV Q24H [facility] Last Infusion: 03/06/21 20:47 Dose: 0 mls/hr Documented by: RAMON Melatonin (Melatonin 3 Mg Tablet) 6 mg PO BEDTIME PRN PRN Reason: Insomnia Pharmacy Consult (Consult Rx Perform Med Rec) 1 each MISCELLANE ONCE PRN PRN Reason: Consult order Sodium Chloride (0.9 % Sodium Chloride Flush 3 Ml Syringe) 3 ml IVFLUSH QSHIFT [facility] Last Admin: 03/07/21 08:52 Dose: Not Given Documented by: JACQUE Non-Admin Reason: IV Running Labs CBC & Chem 7: 03/07/21 06:13 03/07/21 06:13 Labs: Laboratory Results - last 24 hr 03/06/21 03/06/21 03/07/21 19:34 22:06 06:13 MCV 93.6 MCH 30.3 MCHC 32.4 RDW 13.6 Plt Count 217 MPV 10.0 Absolute Nucleated RBC 0.000 Nucleated RBC % (auto) 0.0 Anion Gap Estim Creat Clear Calc Estimated GFR POC Glucose 84 113 Fasting Glucose Calcium 03/07/21 06:13 MCV MCH MCHC RDW Plt Count MPV Absolute Nucleated RBC Nucleated RBC % (auto) Anion Gap 15 Estim Creat Clear Calc 66.9 Estimated GFR > 60 POC Glucose Fasting Glucose 105 H Calcium 8.2 L Microbiology Microbiology Results: Microbiology 03/05/21 18:41 Blood Culture - Preliminary Blood - Venous No growth after 24 hours. 03/05/21 17:32 Blood Culture - Preliminary Blood - Venous No growth after 24 hours. Assessment and Plan (1) SBO (small bowel obstruction): Status: Acute Assessment and Plan: 66-year-old female with a past medical history of hypertension, hyperlipidemia, diabetes, asthma, history of ovarian cancer with metastasis/carcinomatosis/ascites, chronic leukocytosis, had recent chemotherapy on February 21 2021; presented to the hospital with a chief complaint of abdominal discomfort.? CT abdomen showed abdominal carcinomatosis/ascites/developing bowel obstruction Abdominal pain:?abdominal carcinomatosis/ascites/developing bowel obstruction. still with pain surgery following, unlikely to be amenable to surgery, continue ivf, not tolerating clears empiric abx History of ovarian cancer with metastatic/abdominal carcinomatosis/Ascites:? outpatient follow up with oncology DM insulin, monitor poc mild intermittent asthma stable, prn nebs HTN amlodipine hold lisinopril DVT prophylaxis:? Lovenox Code status: Full code Quality Stroke Does the patient have a stroke diagnosis?: No VTE Prior VTE?: No VTE Risk Level:: Medical - moderate - high VTE Device Contraindication: N/A - Device Ordered VTE Drug Contraindication: N/A - Med Ordered
[2021-03-07] MEDS: Dextrose 5 % and 0.45 % NaCl 1,000 ML 50 ML IVCONT (10:55)
[2021-03-07] MEDS: amLODIPine Besylate 10 MG TABLET PO (10:55)
[2021-03-07] MEDS: cefTRIAXone sodium 1 GM in 0.9 % Sodium Chloride 50 ML IV (19:39)
[2021-03-07] MEDS: Enoxaparin Sodium 40 MG/0.4 ML SYRINGE SUBCUT (19:40)
[2021-03-07] MEDS: Atorvastatin Calcium 40 MG TABLET PO (19:40)
[2021-03-08 04:00] VITALS: BP 148/72; PULSE 83; RESP 16; TEMP 36.6; O2SAT 98
[2021-03-08] MEDS: Dextrose 5 % and 0.45 % NaCl 1,000 ML 50 ML IVCONT (04:39)
[2021-03-08 07:00] LABS: Hematocrit 32.2 % (37.0-47.0); Hemoglobin 10.6 g/dl (12.0-16.0); Mean Corpuscular HGB Conc 32.9 g/dl (31.0-35.0); Mean Corpuscular Hemoglobin 30.8 pg (27.0-33.0); Mean Corpuscular Volume 93.6 fL (80.0-98.0); Mean Platelet Volume 9.6 fL (9.4-12.3); Platelet Count 197 X10*3/uL (160-400); Red Blood Count 3.44 X10*6/uL (4.20-5.50); Red Cell Distribution Width 13.7 % (11.0-16.0); White Blood Count 13.2 X10*3/uL (4.8-10.8)
[2021-03-08 07:09] VITALS: BP 148/72; PULSE 72; RESP 19; TEMP 36; O2SAT 98
[2021-03-08 07:11] LABS: Anion Gap 10 (12-20); Blood Urea Nitrogen 9 mg/dL (9-16); Calcium 8.6 mg/dL (8.4-10.2); Carbon Dioxide 26 mmol/L (22-29); Chloride 106 mmol/L (96-108); Creatinine Clr Calc Pharmacy 71.1; Estimated Glomerular Filt Rate > 60; Glucose Fasting 115 mg/dL (60-99); Potassium 3.5 mmol/L (3.3-5.1); Sodium 138 mmol/L (135-145)
[2021-03-08] MEDS: amLODIPine Besylate 10 MG TABLET PO (08:13)
[2021-03-08 10:51] VITALS: BP 119/57; PULSE 70; RESP 18; TEMP 36.6; O2SAT 96
--- NOTE | 2021-03-08 11:14 | P.PNIM_ITS ---
Subjective Subjective Date of Service: 03/08/21 Interval History: cc: abd pain interval history: a bit better today, but does not want to advance from clears Cardiovascular Cardiovascular: Reports no additional cardiovascular complaints Respiratory Respiratory: Reports no additional respiratory complaints Physical Exam Vital Signs: Vital Signs: Last Vital Signs Temp 98 F 03/08/21 10:51 Pulse 70 03/08/21 10:51 Resp 18 03/08/21 10:51 BP 119/57 L 03/08/21 10:51 Pulse Ox 96 03/08/21 10:51 Body Mass Index 32.0 General: AO X 3, no acute distress Resp:? CTA bilateral, no accessory muscles used CVS: S1,S2,RRR GI: soft, non tender,? distended Neuro:? motor grossly intact, alert Psych: appropriate affect, appropriate insight? Objective Data Active Medications Acetaminophen (Acetaminophen Supp 650 Mg Supp.Rect) 650 mg [place] Q6H PRN PRN Reason: Pain, Mild (Pain Scale 1-3) Albuterol/Ipratropium (Albuterol/Iprat 2.5/0.5mg 3 Ml Ampul.Neb) 3 ml INHALE RQ4H PRN PRN Reason: Shortness of Breath/Wheezing Amlodipine Besylate (Amlodipine Besylate 10 Mg Tablet) 10 mg PO DAILY [facility]; Protocol Last Admin: 03/08/21 08:13 Dose: 10 mg Documented by: ARIANA Atorvastatin Calcium (Atorvastatin Calcium 40 Mg Tablet) 40 mg PO BEDTIME [facility] Last Admin: 03/07/21 19:40 Dose: 40 mg Documented by: JOSE Enoxaparin Sodium (Enoxaparin Sodium 40 Mg/0.4 Ml Syringe) 40 mg SUBCUT Q24H [facility] Last Admin: 03/07/21 19:40 Dose: 40 mg Documented by: JOSE Ergocalciferol (Ergocalciferol (Vitamin D2) 1,250 Mcg Capsule) 1,250 mcg PO WE [facility] Last Admin: 03/06/21 09:45 Dose: 1,250 mcg Documented by: TOSIN Hydromorphone HCl (Hydromorphone Hcl 0.5 Mg/0.5 Ml Syringe) 0.5 mg IVPUSH Q4H PRN; Protocol PRN Reason: Breakthrough Pain Last Admin: 03/06/21 14:37 Dose: 0.5 mg Documented by: TOSIN Dextrose/Sodium Chloride (D51/2ns) 1,000 mls @ 50 mls/hr IVCONT .Q20H [facility] Last Admin: 03/08/21 04:39 Dose: 50 mls/hr Documented by: JOSE Ceftriaxone Sodium 1 gm/ (Sodium Chloride) 50 mls @ 100 mls/hr IV Q24H [facility] Last Infusion: 03/07/21 20:24 Dose: 0 mls/hr Documented by: JOSE Melatonin (Melatonin 3 Mg Tablet) 6 mg PO BEDTIME PRN PRN Reason: Insomnia Pharmacy Consult (Consult Rx Perform Med Rec) 1 each MISCELLANE ONCE PRN PRN Reason: Consult order Sodium Chloride (0.9 % Sodium Chloride Flush 3 Ml Syringe) 3 ml IVFLUSH QSHIFT [facility] Last Admin: 03/08/21 08:13 Dose: Not Given Documented by: ARIANA Non-Admin Reason: IV Running Labs CBC & Chem 7: 03/08/21 06:14 03/08/21 06:14 Labs: Laboratory Results - last 24 hr 03/08/21 03/08/21 06:14 06:14 MCV 93.6 MCH 30.8 MCHC 32.9 RDW 13.7 Plt Count 197 MPV 9.6 Absolute Nucleated RBC 0.000 Nucleated RBC % (auto) 0.0 Anion Gap 10 L Estim Creat Clear Calc 71.1 Estimated GFR > 60 Fasting Glucose 115 H Calcium 8.6 Microbiology Microbiology Results: Microbiology 03/05/21 18:41 Blood Culture - Preliminary Blood - Venous No growth after 48 hours. 03/05/21 17:32 Blood Culture - Preliminary Blood - Venous No growth after 48 hours. Assessment and Plan (1) SBO (small bowel obstruction): Status: Acute Assessment and Plan: 66-year-old female with a past medical history of hypertension, hyperlipidemia, diabetes, asthma, history of ovarian cancer with metastasis/carcinomatosis/ascites, chronic leukocytosis, had recent chemotherapy on February 21 2021; presented to the hospital with a chief complaint of abdominal discomfort.? CT abdomen showed abdominal carcinomatosis/ascites/developing bowel obstruction Abdominal pain:?abdominal carcinomatosis/ascites/developing bowel obstruction. improving surgery following, unlikely to be amenable to surgery, continue ivf, continue clears empiric abx History of ovarian cancer with metastatic/abdominal carcinomatosis/Ascites:? outpatient follow up with oncology DM insulin, monitor poc mild intermittent asthma stable, prn nebs HTN amlodipine hold lisinopril DVT prophylaxis:? Lovenox Code status: Full code Quality Stroke Does the patient have a stroke diagnosis?: No VTE Prior VTE?: No VTE Risk Level:: Medical - moderate - high VTE Device Contraindication: N/A - Device Ordered VTE Drug Contraindication: N/A - Med Ordered
--- NOTE | 2021-03-08 11:19 | MHC.CM.PN ---
Per ROUNDS discussio,Patient is not yet medically cleared for dc (IV Ceftriaxone, need to advance diet). Home/resume [employer] is the goal for dc and CM has initiated and will follow for dc planning.
[2021-03-08 16:00] VITALS: BP 140/88; PULSE 88; RESP 15; TEMP 36.6; O2SAT 98
[2021-03-08] MEDS: cefTRIAXone sodium 1 GM in 0.9 % Sodium Chloride 50 ML IV (19:13)
[2021-03-08] MEDS: Enoxaparin Sodium 40 MG/0.4 ML SYRINGE SUBCUT (19:13)
[2021-03-08] MEDS: Atorvastatin Calcium 40 MG TABLET PO (19:14)
[2021-03-08] MEDS: 0.9 % Sodium Chloride Flush 3 ML SYRINGE IVFLUSH (19:14)
[2021-03-08 19:58] VITALS: BP 130/60; PULSE 75; RESP 16; TEMP 36.9; O2SAT 100
[2021-03-08 20:59] LABS: Glucose, Whole Blood 132 mg/dL (60-115)
[2021-03-08 23:39] VITALS: BP 138/70; PULSE 82; RESP 15; TEMP 36.8; O2SAT 98
[2021-03-09] MEDS: Dextrose 5 % and 0.45 % NaCl 1,000 ML 50 ML IVCONT (00:19)
[2021-03-09 03:33] VITALS: BP 138/62; PULSE 84; RESP 18; TEMP 36.6; O2SAT 97
[2021-03-09 06:21] LABS: Hematocrit 33.1 % (37.0-47.0); Hemoglobin 10.7 g/dl (12.0-16.0); Mean Corpuscular HGB Conc 32.3 g/dl (31.0-35.0); Mean Corpuscular Hemoglobin 30.7 pg (27.0-33.0); Mean Corpuscular Volume 95.1 fL (80.0-98.0); Mean Platelet Volume 9.9 fL (9.4-12.3); Platelet Count 171 X10*3/uL (160-400); Red Blood Count 3.48 X10*6/uL (4.20-5.50); Red Cell Distribution Width 13.6 % (11.0-16.0); White Blood Count 12.2 X10*3/uL (4.8-10.8)
[2021-03-09 06:41] LABS: Anion Gap 13 (12-20); Blood Urea Nitrogen 7 mg/dL (9-16); Calcium 8.6 mg/dL (8.4-10.2); Carbon Dioxide 24 mmol/L (22-29); Chloride 107 mmol/L (96-108); Creatinine Clr Calc Pharmacy 70.1; Estimated Glomerular Filt Rate > 60; Glucose Fasting 119 mg/dL (60-99); Potassium 3.8 mmol/L (3.3-5.1); Sodium 140 mmol/L (135-145)
[2021-03-09 07:43] LABS: Glucose, Whole Blood 107 mg/dL (60-115)
[2021-03-09 07:55] VITALS: BP 138/73; PULSE 74; RESP 18; TEMP 36.1; O2SAT 98
[2021-03-09 07:58] VITALS: BP 138/73; PULSE 74
[2021-03-09] MEDS: 0.9 % Sodium Chloride Flush 3 ML SYRINGE IVFLUSH (07:58)
[2021-03-09] MEDS: amLODIPine Besylate 10 MG TABLET PO (07:58)
[2021-03-09 12:00] VITALS: BP 129/60; PULSE 81; RESP 18; TEMP 36.7; O2SAT 100
[2021-03-09 12:07] LABS: Glucose, Whole Blood 124 mg/dL (60-115)
--- NOTE | 2021-03-09 13:47 | PM.DS ---
DS: Providers Provider Date of Service: 03/09/21 Date of admission: 03/05/21 20:07 Primary care physician: Nallely Chicas MD Consults: 03/05/21 20:07 Consult to General Surgery Routine Consulting Provider: Eliot Hercules Reason for consultation: Bowel obstruction/ascites DS: Diagnosis Discharge Diagnosis (1) SBO (small bowel obstruction): Status: Acute DS: Summary Hospital Course Hospital Course: patient was admitted for developing bowel obstruction due to ovarian cancer with carcinomatosis. She was seen by surgery who felt that patient would not benefit from surgical approach. Patient did not require NG tube. Her diet was slowly advanced and was eventually tolerating solid diet and having successful bowel movements. Patient is feeling much better and will be discharged home. Time Spent with Patient Time attestation: Total time spent providing and/or coordinating discharge services: Discharge coordination time: Greater than 30 minutes Quality: Stroke Does the patient have a stroke diagnosis?: No Physical Exam Vital Signs: Vital Signs: Last Vital Signs Temp 98.1 F 03/09/21 12:00 Pulse 81 03/09/21 12:00 Resp 18 03/09/21 12:00 BP 129/60 03/09/21 12:00 Pulse Ox 100 03/09/21 12:00 Body Mass Index 32.0 General: AO X 3, no acute distress Resp: CTA bilateral, no accessory muscles used CVS: S1,S2,RRR GI: soft, non tender, non distended Neuro: motor grossly intact, alert Psych: appropriate affect, appropriate insight DS: Data Data Completed and Pending Completed studies during hospitalization [Text1]: Procedures Drainage of Peritoneal Cavity, Percutaneous Approach (03/10/20) Transfusion of Nonautologous Red Blood Cells into Peripheral Vein, Percutaneous Approach (03/10/20) Labs on day of discharge: Laboratory Results - last 24 hr 03/08/21 03/09/21 03/09/21 20:51 05:57 05:57 WBC 12.2 H RBC 3.48 L Hgb 10.7 L Hct 33.1 L MCV 95.1 MCH 30.7 MCHC 32.3 RDW 13.6 Plt Count 171 MPV 9.9 Absolute Nucleated RBC 0.000 Nucleated RBC % (auto) 0.0 Sodium 140 Potassium 3.8 Chloride 107 Carbon Dioxide 24 Anion Gap 13 BUN 7 L Creatinine 0.83 Estim Creat Clear Calc 70.1 Estimated GFR > 60 POC Glucose 132 H Fasting Glucose 119 H Calcium 8.6 03/09/21 03/09/21 07:26 12:00 WBC RBC Hgb Hct MCV MCH MCHC RDW Plt Count MPV Absolute Nucleated RBC Nucleated RBC % (auto) Sodium Potassium Chloride Carbon Dioxide Anion Gap BUN Creatinine Estim Creat Clear Calc Estimated GFR POC Glucose 107 124 H Fasting Glucose Calcium Preliminary micro results at discharge 03/05/21 18:41 Blood Culture - Preliminary Blood - Venous No growth after 48 hours. 03/05/21 17:32 Blood Culture - Preliminary Blood - Venous No growth after 48 hours. Discharge Plan Discharge Patient Disposition: Home, Self-Care Discharge Diagnosis: sbo Referrals: Nallely Chicas MD [Primary Care Provider] - 1 Week Discharge Medications: Continued metformin 500 mg Tablet 500 mg BIDWM RF: 0 insulin glargine 100 unit/mL (3 mL) Insulin Pen 10 unit SUBCUT BEDTIME RF: 0 atorvastatin 40 mg Tablet 40 mg PO DAILY RF: 0 hydrochlorothiazide 25 mg Tablet 25 mg PO DAILY RF: 0 lisinopril 40 mg Tablet 40 mg PO DAILY RF: 0 ondansetron HCl 4 mg tablet 1 - 2 tab PO BID PRN (Reason: vomiting) RF: 0 amlodipine 10 mg tablet 1 tab PO DAILY RF: 0 ergocalciferol (vitamin D2) 1,250 mcg (50,000 unit) capsule 1 cap PO WE RF: 0 albuterol sulfate [ProAir HFA] 90 mcg/actuation HFA aerosol inhaler 2 puff PO Q4-6H PRN (Reason: Shortness Of Breath) RF: 0 Discharge Orders: Discharge Order (Routine); Ordered 03/09/21 Ordered By: Aries Palomo Diet: advance to usual diet Activity on Discharge: As tolerated Stand Alone Forms: Patient Portal Discharge page Care Plan Goals: avoid obstruction Health Concerns: ovarian cancer Plan of Treatment: low residue diet Assessment: see above
== END 2021-03-09 15:19 | disposition home or self-care (01) | DRG 694 ==
LOC: HO.ED 19:47 → HO.EDOVER 20:20 → HO.IMC 03-06 13:58
PROVIDERS: Admitting Provider Hospitalist; Emergency Provider Emergency Medicine; PCP Internal Medicine; Visit Provider Internal Medicine
DX: C80.0 Disseminated malignant neoplasm, unspecified (principal); E87.2 Acidosis; C56.9 Malignant neoplasm of unspecified ovary; D72.829 Elevated white blood cell count, unspecified; I10 Essential (primary) hypertension; J45.20 Mild intermittent asthma, uncomplicated; Z20.822 Contact with and (suspected) exposure to COVID-19; Z79.84 Long term (current) use of oral hypoglycemic drugs; Z79.899 Other long term (current) drug therapy
CPT/HCPCS: 36415; 71045; 74176; 80048; 80076; 81003; 82947; 83605; 83690; 83735; 84484; 85025; 85027; 87040; 87635; 93005; 99285; J0696; J1170; J1200; J1650; J2270; J2765

== ENCOUNTER 2021-04-28 23:46 | Inpatient (IN) | payer MEDICAID, SELFPAY ==
--- NOTE | ~2021-04-28 | CT_ITS ---
EXAMINATION: CT ABDOMEN AND PELVIS WITHOUT CONTRAST CLINICAL INFORMATION: Abdominal pain. Rule out small bowel obstruction. COMPARISON: Previous CT scans most recent February 2021 TECHNIQUE: Multidetector volumetric imaging was performed from the superior aspect of the liver through the pubic symphysis. Sagittal and coronal reformatted images were obtained on the technologist's workstation. This CT examination was performed using dose optimization techniques as appropriate, variously including the following: *Automated exposure control *Adjustment of mA and/or kV according to patient size (this includes techniques or standardized protocols for targeted exams where dose is matched to indication/reason for exam; i.e. extremities or head) *Use of iterative reconstruction technique DLP: 646 mGy-cm FINDINGS: LUNG BASES: There are new clustered peribronchial nodules in the right lower lobe largest measuring 3 to 4 mm. Clustered appearance favors an infectious or inflammatory process. LIVER, GALLBLADDER, AND BILIARY TREE: There is slight deformity of the medial segment of the left lobe of the liver anterior segment of the right lobe of the liver, question related to adjacent ascites versus subcapsular cystic implant. No other focal liver lesion is seen. The gallbladder is unremarkable. There is no biliary duct dilatation. PANCREAS: Unremarkable. SPLEEN: Unremarkable. ADRENAL GLANDS: Unremarkable. KIDNEYS AND URETERS: The kidneys are normal in size, shape, and attenuation. No hydronephrosis, hydroureter, or calculi seen. No perinephric stranding. BLADDER: Bladder is difficult to separate from adjacent bowel loops and ascitic fluid. There is high attenuation seen along the posterior or dependent bladder wall versus high attenuation dependent material in the bladder, for example axial image 70 series 3. Possible fistula to the bladder should be considered versus high attenuation related to peritoneal disease. No air in the bladder is seen. GASTROINTESTINAL TRACT: There are dilated fluid-filled loops of small bowel. This is similar to prior exams and is again questionable for distal small bowel obstruction. There are tethered matted loops of small bowel seen in the right lower quadrant and pelvis. There is diverticulosis of the colon. There is evidence of peritoneal disease with peritoneal soft tissue masses and fat stranding of the peritoneal fat. There is a moderate amount of ascites. This does not appear appreciably changed compared to previous exams. The distal thoracic esophagus is slightly distended and fluid-filled. The stomach is unremarkable. ABDOMINAL WALL: There are postsurgical changes to the anterior abdominal wall. No hernia is seen. LYMPH NODES: There are small retroperitoneal lymph nodes in the abdomen and pelvis and small, small bowel mesentery lymph nodes.. VASCULAR: Unremarkable. PELVIC VISCERA: The uterus appears to have been removed. No pelvic mass is seen. OSSEOUS STRUCTURES: There are degenerative changes of the spine. CT/CT abdomen pelvis wo con IMPRESSION: Fluid-filled dilated small bowel suggestive of distal small bowel obstruction. Ascites, peritoneal soft tissue masses and fat stranding suggestive of carcinomatosis. These findings do not appear appreciably changed from previous exams. Linear high attenuation seen dependently in the bladder, question related to peritoneal disease. Differential would include a fistula from the bowel and oral contrast. Clinical correlation recommended. No air is seen in the bladder. No significant abnormality. Fleischner guidelines were followed.
[2021-04-29] VITALS (7 sets, daily range): BP systolic 129–191; BP diastolic 60–114; PULSE 71–93; RESP 14–20; TEMP 35.8–37.5; O2SAT 97–99; BMI 30.9
--- NOTE | 2021-04-29 | ECG_ITS ---
Test Reason : EPIGASTRIC PAIN Blood Pressure : / mmHG Vent. Rate : 082 BPM Atrial Rate : 082 BPM P-R Int : 144 ms QRS Dur : 082 ms QT Int : 352 ms P-R-T Axes : 061 041 044 degrees QTc Int : 411 ms Normal sinus rhythm Normal ECG When compared with ECG of 05-MAR-2021 18:27, No significant change was found Referred By: Generic ED Physician Electronically Signed By:Santiago Dominguez
[2021-04-29] MEDS: Ondansetron ODT 4 MG TAB.RAPDIS TRANSLINGU (00:09)
[2021-04-29 00:29] LABS: MANUAL DIFF FLAG NO
[2021-04-29 00:31] LABS: Basophils Percent Auto 0.1 % (0-2); Hematocrit 38.2 % (37.0-47.0); Hemoglobin 11.9 g/dl (12.0-16.0); Imm Gran Abs Auto 0.05 X10*3/uL (0.00-0.03); Imm Gran Pct Auto 0.3 % (0.0-0.4); Lymphocytes Percent Auto 11.4 % (20-40); Mean Corpuscular HGB Conc 31.2 g/dl (31.0-35.0); Mean Corpuscular Hemoglobin 30.2 pg (27.0-33.0); Mean Platelet Volume 9.5 fL (9.4-12.3); Monocytes Absolute Auto 0.8 X10*3/uL (0.1-1.2); Monocytes Percent Auto 4.4 % (2-11); Neutrophils Absolute Auto 14.6 x10*3/uL (2.0-8.3); Neutrophils Percent Auto 83.8 % (45-73); Platelet Count 263 X10*3/uL (160-400); Red Blood Count 3.94 X10*6/uL (4.20-5.50); Red Cell Distribution Width 14.6 % (11.0-16.0); White Blood Count 17.4 X10*3/uL (4.8-10.8)
[2021-04-29 00:50] LABS: Alanine Aminotransferase 17 U/L (0-31); Alkaline Phosphatase 69 U/L (39-117); Anion Gap 15 (12-20); Aspartate Amino Transferase 25 U/L (5-31); Bilirubin Total 0.3 mg/dL (0.0-1.0); Blood Urea Nitrogen 18 mg/dL (9-16); Calcium 9.9 mg/dL (8.4-10.2); Carbon Dioxide 28 mmol/L (22-29); Chloride 104 mmol/L (96-108); Creatinine Clr Calc Pharmacy 50.6; Estimated Glomerular Filt Rate 48; Glucose Random 73 mg/dL (60-115); Lipase 75 U/L (8-78); Potassium 4.1 mmol/L (3.3-5.1); Sodium 143 mmol/L (135-145); Total Protein 7.9 g/dL (6.5-8.0)
[2021-04-29 01:07] LABS: Influenza A PCR NEGATIVE (Negative); Influenza B PCR NEGATIVE (Negative); Resp Syncy Virus RNA Qual PCR NEGATIVE (Negative); SARS COV2 PCR INHOUSE NEGATIVE (Negative)
--- NOTE | 2021-04-29 07:10 | ED.ABDPAIN ---
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 Patient with history of hysterectomy. History of ovarian cancer with carcinomatosis. Related Data Home Medications Medication Instructions Recorded Confirmed metformin 500 mg tablet 500 mg BIDWM 03/10/20 03/05/21 insulin glargine 100 unit/mL (3 10 unit SUBCUT BEDTIME 04/30/20 03/05/21 mL) subcutaneous pen atorvastatin 40 mg tablet 40 mg PO DAILY 05/01/20 03/05/21 hydrochlorothiazide 25 mg tablet 25 mg PO DAILY 05/01/20 03/05/21 lisinopril 40 mg tablet 40 mg PO DAILY 05/01/20 03/05/21 albuterol sulfate 90 mcg/actuation 2 puff PO Q4-6H PRN 03/05/21 03/05/21 aerosol inhaler (ProAir HFA) amlodipine 10 mg tablet 1 tab PO DAILY 03/05/21 03/05/21 ergocalciferol (vitamin D2) 1,250 1 cap PO WE 03/05/21 03/05/21 mcg (50,000 unit) capsule ondansetron HCl 4 mg tablet 1 - 2 tab PO BID PRN 03/05/21 03/05/21 Allergies Allergy/AdvReac Type Severity Reaction Status Date / Time No Known Allergies Allergy Verified 04/29/21 00:00 Review of Systems Review of Systems all other systems are reviewed and are negative Constitutional: Reports as per HPI and Reports no additional constitutional complaints Eyes: Reports as per HPI and Reports no additional eye complaints Reports system reviewed and no additional complaints, except as documented Cardiovascular: Reports as per HPI and Reports no additional cardiovascular complaints Respiratory: Reports as per HPI and Reports no additional respiratory complaints Gastrointestinal: Reports as per HPI and Reports no additional gastrointestinal complaints Genitourinary: Reports no additional female genitourinary complaints Musculoskeletal: Reports no additional musculoskeletal complaints Skin/Breast: Reports system reviewed and no additional complaints, except as docu Psychiatric: Reports no additional psychiatric complaints Endocrine: Reports no additional endocrine complaints Hematologic/Lymphatic: Reports no additional hematologic/lymphatic complaints Allergic/Immunologic: Reports no additional allergic/immunologic complaints Reports system reviewed and no additional complaints, except as documented and Reports Abnormal speech present Physical Exam Vital Signs: Vital Signs: Last Vital Signs Temp 98.9 F 04/29/21 10:37 Pulse 74 04/29/21 10:37 Resp 14 04/29/21 10:37 BP 167/76 H 04/29/21 10:37 Pulse Ox 98 04/29/21 10:37 BMI result Body Mass Index 30.9 vital signs have been reviewed as appeared to be correct. Blood pressure normal. Heart rate normal. Respiration rate normal. Temperature normal. Oxygen saturation normal. Appearance: Alert. Oriented X3. No acute distress. Head: Normal external exam. Normocephalic. Atraumatic. No [place] signs noted. No raccoon eyes noted Eyes: PERRLA. EOMI. Conjunctiva and sclera normal. Eyelids normal. ENT: TM's Normal. Pharynx normal. Uvula midline. Moist mucous membranes. No trismus noted. No drooling noted. No muffled voice noted. Neck: Normal inspection. Neck supple. FROM. No adenopathy. Thyroid Normal. No meningeal signs. No neck mass noted. CVS: Normal heart rate and rhythm. Heart sound normal. No murmurs noted. Pulses normal throughout. Respiratory: No respiratory distress. Painless inspiration. Breath sounds normal. No wheezes/rales/rhonchi noted. Chest nontender. No accessory muscle usage noted or decreased air movement noted. Abdomen: Soft, epigastric tenderness, no guarding, no rebound tenderness.. Bowel sounds normal in all 4 quadrants. No distention noted. No organomegaly noted. No visible injury noted. Back: No CVA tenderness. Full range of motion noted. Skin: Skin warm and dry. Normal skin color. Normal skin turgor. No rashes/lesions/lacerations noted. Extremities: No lower extremity edema. Extremities exhibit normal range of motion. Extremities nontender. Neuro: Oriented X 3. Cranial nerve exam: II-XII are grossly intact No motor deficit. No sensory deficit. Reflexes normal. Course Course Course Narrative: assessment and plan. 66-year-old female with history of hysterectomy and ovarian cancer with carcinomatosis came in with abdominal pain and CT is consistent with small-bowel obstruction, surgical consultation was obtained in the emergency department recommended patient to be admitted to the medical service, since patient is not vomiting at this point hold off on a NG tube, and there is no surgical intervention is needed at this point. MDM - Abdominal Pain Lab Data Attestation: I reviewed the patient's lab results. Result diagrams: 04/29/21 00:17 04/29/21 00:17 Labs: Lab Results 04/29/21 04/29/21 04/29/21 Range/Units 00:17 00:17 00:17 WBC 17.4 H (4.8-10.8) X10*3/uL RBC 3.94 L (4.20-5.50) X10*6/uL Hgb 11.9 L (12.0-16.0) g/dl Hct 38.2 (37.0-47.0) % MCV 97.0 (80.0-98.0) fL MCH 30.2 (27.0-33.0) pg MCHC 31.2 (31.0-35.0) g/dl RDW 14.6 (11.0-16.0) % Plt Count 263 D (160-400) X10*3/uL MPV 9.5 (9.4-12.3) fL Immature Gran % (Auto) 0.3 (0.0-0.4) % Neut % (Auto) 83.8 H (45-73) % Lymph % (Auto) 11.4 L (20-40) % [place] % (Auto) 4.4 (2-11) % Eos % (Auto) 0.0 (0-4) % Baso % (Auto) 0.1 (0-2) % Lymph # (Auto) 2.0 (1.2-4.9) X10*3/uL [place] # (Auto) 0.8 (0.1-1.2) X10*3/uL Eos # (Auto) 0.0 (0.0-0.4) X10*3/uL Baso # (Auto) 0.0 (0.0-0.2) X10*3/uL Abs Immat Gran (auto) 0.05 H (0.00-0.03) X10*3/uL Absolute Neuts (auto) 14.6 H (2.0-8.3) x10*3/uL Absolute Nucleated RBC 0.000 (0.0-0.012) X10*3/uL Nucleated RBC % (auto) 0.0 (0.0-0.2) /100WBC Sodium 143 (135-145) mmol/L Potassium 4.1 (3.3-5.1) mmol/L Chloride 104 (96-108) mmol/L Carbon Dioxide 28 (22-29) mmol/L Anion Gap 15 (12-20) BUN 18 H (9-16) mg/dL Creatinine 1.13 (0.5-1.4) mg/dL Estim Creat Clear Calc 50.6 Estimated GFR 48 Random Glucose 73 (60-115) mg/dL Lactic Acid (0.5-2.0) mmol/L Calcium 9.9 D (8.4-10.2) mg/dL Total Bilirubin 0.3 (0.0-1.0) mg/dL AST 25 (5-31) U/L ALT 17 (0-31) U/L Alkaline Phosphatase 69 (39-117) U/L Troponin I High Sens (<3.5-17.0) ng/L Total Protein 7.9 (6.5-8.0) g/dL Albumin 4.0 (3.5-5.0) g/dL Lipase 75 (8-78) U/L Urine Color Urine Appearance Urine pH (5.0-8.0) Ur Specific [place] (1.005-1.025) Urine Protein (NEG-TRACE) MG/DL Urine Glucose (UA) (NEG) MG/DL Urine Ketones (NEG) MG/DL Urine Blood (NEG) Urine Nitrite (NEG) Ur Leukocyte Esterase (NEG) Urine RBC (0) /HPF Urine WBC (0-4) /HPF Ur Squamous Epith Cells /LPF Amorphous Sediment /LPF Urine Bacteria /LPF Influenza Type A (PCR) NEGATIVE (Negative) Influenza Type B (PCR) NEGATIVE (Negative) RSV RNA Qual (PCR) NEGATIVE (Negative) SARS-CoV-2 RNA (RT-PCR) NEGATIVE (Negative) 04/29/21 04/29/21 04/29/21 Range/Units 07:20 08:17 08:17 WBC (4.8-10.8) X10*3/uL RBC (4.20-5.50) X10*6/uL Hgb (12.0-16.0) g/dl Hct (37.0-47.0) % MCV (80.0-98.0) fL MCH (27.0-33.0) pg MCHC (31.0-35.0) g/dl RDW (11.0-16.0) % Plt Count (160-400) X10*3/uL MPV (9.4-12.3) fL Immature Gran % (Auto) (0.0-0.4) % Neut % (Auto) (45-73) % Lymph % (Auto) (20-40) % [place] % (Auto) (2-11) % Eos % (Auto) (0-4) % Baso % (Auto) (0-2) % Lymph # (Auto) (1.2-4.9) X10*3/uL [place] # (Auto) (0.1-1.2) X10*3/uL Eos # (Auto) (0.0-0.4) X10*3/uL Baso # (Auto) (0.0-0.2) X10*3/uL Abs Immat Gran (auto) (0.00-0.03) X10*3/uL Absolute Neuts (auto) (2.0-8.3) x10*3/uL Absolute Nucleated RBC (0.0-0.012) X10*3/uL Nucleated RBC % (auto) (0.0-0.2) /100WBC Sodium (135-145) mmol/L Potassium (3.3-5.1) mmol/L Chloride (96-108) mmol/L Carbon Dioxide (22-29) mmol/L Anion Gap (12-20) BUN (9-16) mg/dL Creatinine (0.5-1.4) mg/dL Estim Creat Clear Calc Estimated GFR Random Glucose (60-115) mg/dL Lactic Acid 1.2 (0.5-2.0) mmol/L Calcium (8.4-10.2) mg/dL Total Bilirubin (0.0-1.0) mg/dL AST (5-31) U/L ALT (0-31) U/L Alkaline Phosphatase (39-117) U/L Troponin I High Sens < 3.5 (<3.5-17.0) ng/L Total Protein (6.5-8.0) g/dL Albumin (3.5-5.0) g/dL Lipase (8-78) U/L Urine Color YELLOW Urine Appearance HAZY Urine pH 5.5 (5.0-8.0) Ur Specific [place] >= 1.030 H (1.005-1.025) Urine Protein 1+ H (NEG-TRACE) MG/DL Urine Glucose (UA) NEG (NEG) MG/DL Urine Ketones 5 (NEG) MG/DL Urine Blood NEG (NEG) Urine Nitrite NEG (NEG) Ur Leukocyte Esterase NEG (NEG) Urine RBC 1-4 (0) /HPF Urine WBC 1-4 (0-4) /HPF Ur Squamous Epith Cells 1+ /LPF Amorphous Sediment 1+ /LPF Urine Bacteria 1+ /LPF Influenza Type A (PCR) (Negative) Influenza Type B (PCR) (Negative) RSV RNA Qual (PCR) (Negative) SARS-CoV-2 RNA (RT-PCR) (Negative) Imaging Data CT scan - abdomen: Attestation: I personally reviewed and interpreted this imaging study as follows: Radiologist's impression: ?Fluid-filled dilated small bowel suggestive of distal small bowel obstruction. Ascites, peritoneal soft tissue masses and fat stranding suggestive of carcinomatosis. These findings do not appear appreciably changed from previous exams. Linear high attenuation seen dependently in the bladder, question related to peritoneal disease. Differential would include a fistula from the bowel and oral contrast. Clinical correlation recommended. No air is seen in the bladder. No significant abnormality.? ? Discharge Plan Discharge Clinical Impression: Leukocytosis, Abdominal carcinomatosis, SBO (small bowel obstruction) Patient Disposition: Admitted As Inpatient Prescriptions: No Action metformin 500 mg Tablet 500 mg BIDWM RF: 0 insulin glargine 100 unit/mL (3 mL) Insulin Pen 10 unit SUBCUT BEDTIME RF: 0 atorvastatin 40 mg Tablet 40 mg PO DAILY RF: 0 hydrochlorothiazide 25 mg Tablet 25 mg PO DAILY RF: 0 lisinopril 40 mg Tablet 40 mg PO DAILY RF: 0 ondansetron HCl 4 mg tablet 1 - 2 tab PO BID PRN (Reason: vomiting) RF: 0 amlodipine 10 mg tablet 1 tab PO DAILY RF: 0 ergocalciferol (vitamin D2) 1,250 mcg (50,000 unit) capsule 1 cap PO WE RF: 0 albuterol sulfate [ProAir HFA] 90 mcg/actuation HFA aerosol inhaler 2 puff PO Q4-6H PRN (Reason: Shortness Of Breath) RF: 0 PMFSH Past Medical History Medical History (Updated 04/29/21 @ 10:55 by Yohannes Driscoll MD) Asthma Diabetes Gastric cancer Hyperlipidemia Hypertension Ovarian cancer Surgical History H/O section S/P total hysterectomy (~05/2020) Social History Social History Household Members: None Housing: House Do you presently have visiting nurse or other home services: No Alcohol intake: never Patient Tobacco Use Status: Never used Tobacco Advance Directives: Yes Advance Directives on File: Yes Advance Directives Date on File: 03/06/21 service: No Current occupational status: employed and disabled
[2021-04-29 07:29] LABS: Appearance Urine HAZY; Color Urine YELLOW; Glucose Urine UA NEG (NEG); Leukocyte Esterase Urine NEG (NEG); Nitrite Urine NEG (NEG); PH 5.5 (5.0-8.0); Specific Gravity - Urine >= 1.030 (1.005-1.025); UACC Culture Trigger NO; Urine Blood NEG (NEG); Urine Ketones 5 MG/DL (NEG); Urine Protein 1+ MG/DL (NEG-TRACE)
[2021-04-29 07:38] LABS: Amorphous Sediment Urine 1+ /LPF; Bacteria Urine 1+ /LPF; Squamous Epithelial Cell Urine 1+ /LPF
[2021-04-29] MEDS: Ketorolac Tromethamine 30 MG/ML VIAL IVPUSH (08:01)
[2021-04-29] MEDS: Famotidine/PF 20 MG/2 ML VIAL IVPUSH (08:01)
[2021-04-29] MEDS: ondansetron HCL 4 MG/2 ML VIAL IVPUSH (08:01)
[2021-04-29 08:37] LABS: Lactic Acid 1.2 mmol/L (0.5-2.0)
[2021-04-29 08:47] LABS: Troponin-I High Sensitivity < 3.5 ng/L (<3.5-17.0)
--- NOTE | 2021-04-29 10:41 | P.CONGS_ITS ---
History of Present Illness Consult details Consult date: 04/29/21 Narrative: 66-year-old female referred for small-bowel obstruction. She is known to the service because of ovarian cancer with carcinomatosis and severe ascites. She was actually admitted to the hospital last February, because of abdominal pain with dilatation of the small bowel was suggestive of small-bowel obstruction. She says that she started to have similar pain last night. She describes this as diffuse. She however says that she continues to pass flatus. She says he had a good bowel movement last night. She is being followed in [facility] for her ovarian cancer and is undergoing palliative chemotherapy. She describes some vomiting at home. She says she has had no vomiting since she has been in the ER. She also says that her pain improved considerably. She says that she is a lot more comfortable this morning. Review of Systems Constitutional: Constitutional: Denies chills and Denies fever(s) Cardiovascular: Cardiovascular: Denies chest pain, Denies dyspnea and Denies dyspnea on exertion Respiratory: Respiratory: Denies cough, Denies dyspnea and Denies dyspnea on exertion Gastrointestinal: Gastrointestinal: Denies hematochezia and Denies change in bowel habits Genitourinary: Genitourinary: Denies hematuria Musculoskeletal: Musculoskeletal: Denies back pain and Denies limited range of motion Neurologic: Denies focal weakness and Denies convulsions Psychiatric: Psychiatric: Denies depression and Denies mood swings PMFSH Past Medical History Medical History Asthma Diabetes Gastric cancer Hyperlipidemia Hypertension Ovarian cancer Surgical History Surgical History H/O section S/P total hysterectomy (~05/2020) Social History Social History Household Members: None Housing: House Do you presently have visiting nurse or other home services: No Alcohol intake: never Patient Tobacco Use Status: Never used Tobacco Use of substances other than those prescribed or required for medical reasons: No Advance Directives: Yes Advance Directives on File: Yes Advance Directives Date on File: 03/06/21 service: No Current occupational status: employed and disabled Meds Allergies Allergy/AdvReac Type Severity Reaction Status Date / Time No Known Allergies Allergy Verified 04/29/21 00:00 Home Medications Medication Instructions Recorded Confirmed Last Taken Type metformin 500 mg tablet 500 mg BIDWM 03/10/20 04/29/21 04/28/21 History insulin glargine 100 unit/mL (3 35 unit SUBCUT BEDTIME 04/30/20 04/29/21 04/28/21 History mL) subcutaneous pen atorvastatin 40 mg tablet 40 mg PO DAILY 05/01/20 04/29/21 04/28/21 History hydrochlorothiazide 25 mg tablet 25 mg PO DAILY 05/01/20 04/29/21 04/28/21 History lisinopril 40 mg tablet 40 mg PO DAILY 05/01/20 04/29/21 04/28/21 History albuterol sulfate 90 mcg/actuation 2 puff PO Q4-6H PRN 03/05/21 04/29/21 04/28/21 History aerosol inhaler (ProAir HFA) ergocalciferol (vitamin D2) 1,250 1 cap PO WE 03/05/21 04/29/21 04/28/21 History mcg (50,000 unit) capsule ondansetron HCl 4 mg tablet 2 tab PO BID PRN 03/05/21 04/29/21 04/28/21 History Physical Exam Vital Signs: Vital Signs: Last Vital Signs Temp 98.9 F 04/29/21 10:37 Pulse 74 04/29/21 10:37 Resp 14 04/29/21 10:37 BP 167/76 H 04/29/21 10:37 Pulse Ox 98 04/29/21 10:37 BMI result Body Mass Index 30.9 Const: General: comfortable and no acute distress Orientation/consciousness: patient oriented x3 Neck: Neck: Yes no lymphadenopathy Resp: Auscultation: clear to auscultation bilaterally Cardio: Rhythm: regular rhythm GI: Other: Mild diffuse tenderness with no guarding rebound Palpation (GI): Soft to palpation, nontender and no guarding Neuro: General: patient oriented x3 Results Labs Result diagrams: 04/30/21 06:59 04/30/21 06:59 Labs: Abnormal lab results 04/29/21 04/29/21 04/29/21 Range/Units 00:17 00:17 07:20 WBC 17.4 H (4.8-10.8) X10*3/uL RBC 3.94 L (4.20-5.50) X10*6/uL Hgb 11.9 L (12.0-16.0) g/dl Neut % (Auto) 83.8 H (45-73) % Lymph % (Auto) 11.4 L (20-40) % Abs Immat Gran (auto) 0.05 H (0.00-0.03) X10*3/uL Absolute Neuts (auto) 14.6 H (2.0-8.3) x10*3/uL BUN 18 H (9-16) mg/dL Ur Specific [place] >= 1.030 H (1.005-1.025) Urine Protein 1+ H (NEG-TRACE) MG/DL Short CBC 04/29/21 Range/Units 00:17 WBC 17.4 H (4.8-10.8) X10*3/uL Hgb 11.9 L (12.0-16.0) g/dl Hct 38.2 (37.0-47.0) % Plt Count 263 D (160-400) X10*3/uL BMP 04/29/21 00:17 Sodium 143 Potassium 4.1 Chloride 104 Carbon Dioxide 28 BUN 18 H Creatinine 1.13 Calcium 9.9 D Liver Function 04/29/21 Range/Units 00:17 Total Bilirubin 0.3 (0.0-1.0) mg/dL AST 25 (5-31) U/L ALT 17 (0-31) U/L Alkaline Phosphatase 69 (39-117) U/L Albumin 4.0 (3.5-5.0) g/dL Urine 04/29/21 Range/Units 07:20 Urine Color YELLOW Urine Appearance HAZY Urine pH 5.5 (5.0-8.0) Ur Specific [place] >= 1.030 H (1.005-1.025) Urine Protein 1+ H (NEG-TRACE) MG/DL Urine Glucose (UA) NEG (NEG) MG/DL All other labs normal. Imaging Abdomen CT scan report/results: report reviewed and image reviewed CT scan - pelvis: report reviewed and image reviewed Assessment and Plan (1) Ovarian cancer: Status: Acute She came in because of abdominal pain similar to her previous episode. She does state that she sometimes has periodic pain on the abdomen although this seemed to be worse last night. She says that she feels much better this morning. She continues to pass flatus and has had bowel movements. I have reviewed her CAT scan and this does show some small bowel dilatation proximally suggestive of partial small-bowel obstruction. She has good amounts of air distally. Unfortunately, she has severe carcinomatosis, with omental caking as well with multiple soft tissue tumors consistent with her advanced Ovarian cancer with metastasis. She may be admitted for bowel rest and IV fluids. She may be kept on clear liquids for now and this may be advanced as tolerated depending on her clinical course.Her WBC is elevated in the ER But this may be stress related. We can hold off on NG tube placement for now as she she is no longer nauseous. She has a very benign exam. It does not appear that she will benefit from surgical intervention down the line in view of the advanced stage of her ovarian cancer with significant studding, soft tissue tumors, omental caking and ascites. Goals of care and treatment should be discussed with her. Thank you for the courtesy of the referral. Procedures Date of Service Date of Service: 04/29/21
--- NOTE | 2021-04-29 11:28 | P.HPHOSP_ITS ---
History of Present Illness Date of Service: 04/29/21 Chief Complaint: abdominal pain, vomiting, nausea This is a 66 yo Guinean speaking (history taken with the help of a Guinean speaking licensed prosthetist) F with a PMH as outlined below who is actively being treated for ovarian Ca and presents to [facility] ED today with complaints of bilateral lower quad abdominal pain and nausea x 3 which began on the evening prior to arrival. 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 She reported 1 more episode of NB vomiting this AM in the ED. In the ED, her work up revealed leukocytosis and a CT scan suggestive of SBO. She was given IV analgesics and anti-emetics. She was given a fluid bolus and was evaluated by Gen Surg who recommended admission under medical services. COVID vaccination: 3 shots including booster (unsure if Moderna vs Pfizer) Review of Systems Review of Systems: negative except HPI [facility], [facility] Medical History Asthma Diabetes Gastric cancer Hyperlipidemia Hypertension Ovarian cancer Surgical History H/O section S/P total hysterectomy (~05/2020) Social History Household Members: None Housing: House Do you presently have visiting nurse or other home services: No Alcohol intake: never Patient Tobacco Use Status: Never used Tobacco Advance Directives: Yes Advance Directives on File: Yes Advance Directives Date on File: 03/06/21 service: No Current occupational status: employed and disabled Meds Allergies Allergy/AdvReac Type Severity Reaction Status Date / Time No Known Allergies Allergy Verified 04/29/21 00:00 Active Medications: Current Medications Acetaminophen (Acetaminophen 325 Mg Tablet) 650 mg PO Q6H PRN PRN Reason: Pain, Mild (Pain Scale 1-3) Enoxaparin Sodium (Enoxaparin Sodium 40 Mg/0.4 Ml Syringe) 40 mg SUBCUT Q24H [facility] Dextrose/Sodium Chloride (D5ns) 1,000 mls @ 100 mls/hr IVCONT .Q10H [facility] Morphine Sulfate (Morphine Sulfate 4 Mg/Ml Cartridge) 4 mg IVPUSH Q4H PRN; Protocol PRN Reason: Pain, Severe (Pain Scale 7-10) Ondansetron HCl (Ondansetron Hcl 4 Mg/2 Ml Vial) 4 mg IVPUSH Q8H PRN PRN Reason: Nausea and Vomiting Oxycodone HCl (Oxycodone Hcl Immed Release 5 Mg Tablet) 5 mg PO Q6H PRN PRN Reason: Pain, Moderate (Pain Scale 4-6 Pharmacy Consult (Consult Rx Perform Med Rec) 1 each MISCELLANE ONCE PRN PRN Reason: Consult order Sodium Chloride (0.9 % Sodium Chloride Flush 3 Ml Syringe) 3 ml IVFLUSH QSHIFT [facility] Home Medications Medication Instructions Recorded Confirmed Last Taken Type metformin 500 mg tablet 500 mg BIDWM 03/10/20 03/05/21 03/05/21 History insulin glargine 100 unit/mL (3 10 unit SUBCUT BEDTIME 04/30/20 03/05/21 03/04/21 History mL) subcutaneous pen atorvastatin 40 mg tablet 40 mg PO DAILY 05/01/20 03/05/21 03/05/21 History hydrochlorothiazide 25 mg tablet 25 mg PO DAILY 05/01/20 03/05/21 03/05/21 History lisinopril 40 mg tablet 40 mg PO DAILY 05/01/20 03/05/21 03/05/21 History albuterol sulfate 90 mcg/actuation 2 puff PO Q4-6H PRN 03/05/21 03/05/21 Unknown History aerosol inhaler (ProAir HFA) ergocalciferol (vitamin D2) 1,250 1 cap PO WE 03/05/21 03/05/21 02/27/21 History mcg (50,000 unit) capsule ondansetron HCl 4 mg tablet 1 - 2 tab PO BID PRN 03/05/21 03/05/21 03/05/21 History Physical Exam Vital Signs and Narrative: Vital Signs: Last Vital Signs Temp 98.9 F 04/29/21 10:37 Pulse 74 04/29/21 10:37 Resp 14 04/29/21 10:37 BP 167/76 H 04/29/21 10:37 Pulse Ox 98 04/29/21 10:37 BMI result Body Mass Index 30.9 Const: Other: Constitutional - Awake and Alert, In mild pain Eyes - PERRLA, EOMI Cardiovascular - S1S2, RRR, No edema Respiratory - Normal lung expansion, Normal respiratory effort, No respiratory distress, CTA bilaterally Gastrointestinal - soft, non-distended with diffuse mild tenderness without r ebouding or guarding - No CVA tenderness Extremities - no calf tenderness bilaterally, no swelling Musculoskeletal - Normal inspection, normal ROM Skin - Warm/Dry Neurological - Alert & oriented x3, No focal deficit Psychological - Appropriate affect Results Labs CBC and Chem 7: 04/29/21 00:17 04/29/21 00:17 Labs: Laboratory Results - last 24 hr 04/29/21 04/29/21 04/29/21 00:17 00:17 00:17 MCV 97.0 MCH 30.2 MCHC 31.2 RDW 14.6 Plt Count 263 D MPV 9.5 Immature Gran % (Auto) 0.3 Neut % (Auto) 83.8 H Lymph % (Auto) 11.4 L [place] % (Auto) 4.4 Eos % (Auto) 0.0 Baso % (Auto) 0.1 Lymph # (Auto) 2.0 [place] # (Auto) 0.8 Eos # (Auto) 0.0 Baso # (Auto) 0.0 Abs Immat Gran (auto) 0.05 H Absolute Neuts (auto) 14.6 H Absolute Nucleated RBC 0.000 Nucleated RBC % (auto) 0.0 Anion Gap 15 Estim Creat Clear Calc 50.6 Estimated GFR 48 Random Glucose 73 Lactic Acid Calcium 9.9 D Total Bilirubin 0.3 AST 25 ALT 17 Alkaline Phosphatase 69 Troponin I High Sens Total Protein 7.9 Albumin 4.0 Lipase 75 Urine Color Urine Appearance Urine pH Ur Specific [place] Urine Protein Urine Glucose (UA) Urine Ketones Urine Blood Urine Nitrite Ur Leukocyte Esterase Urine RBC Urine WBC Ur Squamous Epith Cells Amorphous Sediment Urine Bacteria Influenza Type A (PCR) NEGATIVE Influenza Type B (PCR) NEGATIVE RSV RNA Qual (PCR) NEGATIVE SARS-CoV-2 RNA (RT-PCR) NEGATIVE 04/29/21 04/29/21 04/29/21 07:20 08:17 08:17 MCV MCH MCHC RDW Plt Count MPV Immature Gran % (Auto) Neut % (Auto) Lymph % (Auto) [place] % (Auto) Eos % (Auto) Baso % (Auto) Lymph # (Auto) [place] # (Auto) Eos # (Auto) Baso # (Auto) Abs Immat Gran (auto) Absolute Neuts (auto) Absolute Nucleated RBC Nucleated RBC % (auto) Anion Gap Estim Creat Clear Calc Estimated GFR Random Glucose Lactic Acid 1.2 Calcium Total Bilirubin AST ALT Alkaline Phosphatase Troponin I High Sens < 3.5 Total Protein Albumin Lipase Urine Color YELLOW Urine Appearance HAZY Urine pH 5.5 Ur Specific [place] >= 1.030 H Urine Protein 1+ H Urine Glucose (UA) NEG Urine Ketones 5 Urine Blood NEG Urine Nitrite NEG Ur Leukocyte Esterase NEG Urine RBC 1-4 Urine WBC 1-4 Ur Squamous Epith Cells 1+ Amorphous Sediment 1+ Urine Bacteria 1+ Influenza Type A (PCR) Influenza Type B (PCR) RSV RNA Qual (PCR) SARS-CoV-2 RNA (RT-PCR) Imaging Radiologist's Impressions: Impressions Abdomen/Pelvis CT 04/29/21 08:09 IMPRESSION: Fluid-filled dilated small bowel suggestive of distal small bowel obstruction. Ascites, peritoneal soft tissue masses and fat stranding suggestive of carcinomatosis. These findings do not appear appreciably changed from previous exams. Linear high attenuation seen dependently in the bladder, question related to peritoneal disease. Differential would include a fistula from the bowel and oral contrast. Clinical correlation recommended. No air is seen in the bladder. No significant abnormality. Fleischner guidelines were followed. Assessment and Plan (1) SBO (small bowel obstruction): Status: Acute (2) Ovarian cancer: Status: Acute This is a 66 yo F with a known history of Ovarian Ca with mets / carciomatosis who presents to the ED with complaints of abdominal symptoms and is diagnosed with pSBO. She is admitted for further care. 1. pSBO D5NS Clear liquids Gen Surg Consult appreciated IV pain control 2. Leukocytosis suspected reactive, no definitive foci of infection monitor 3. DM hold oral meds POC QIDAC sliding scale 4. HTN hold antihypertensives, if tolerate diet -- start baseline oral meds 5. Ovarian Ca with mets outpatient f/u Full Code DVT pptx, Lovenox Endorses daughter Marcia Thorne as her HCP Quality Stroke Does the patient have a stroke diagnosis?: No VTE Prior VTE?: No VTE Risk Level:: Medical - moderate - high VTE Device Contraindication: Treatment Not Indicated VTE Drug Contraindication: N/A - Med Ordered
--- NOTE | 2021-04-29 11:56 | PHA.MEDREC ---
Pharmacy Consult ? Medication Reconciliation Pharmacy has completed the medication reconciliation. There are no remarkable issues for provider's attention. Jen Arellano, СергейD
[2021-04-29] MEDS: Dextrose 5 % and 0.9 % NaCl 1,000 ML 100 ML IVCONT ×2 (11:59→21:58)
[2021-04-29] MEDS: Enoxaparin Sodium 40 MG/0.4 ML SYRINGE SUBCUT (12:00)
[2021-04-29] MEDS: oxyCODONE HCl Immed Release 5 MG TABLET PO (12:00)
[2021-04-29] MEDS: Morphine Sulfate 4 MG/ML CARTRIDGE IVPUSH (14:48)
[2021-04-30] VITALS (7 sets, daily range): BP systolic 141–160; BP diastolic 65–81; PULSE 67–72; RESP 14–18; TEMP 36.5–37.4; O2SAT 94–100
--- NOTE | 2021-04-30 02:40 | PC.NURSE ---
Addendum entered by Zahida Vines RN 04/30/21 02:43: Dr. Lindo notified of blood pressures sbp 160 patient not in pain, and has been sleeping most the day. Will continue to monitor. Original Note: Patient alert and oriented x 3. ambulates independently. Patient denies abdominal pain on clear liquid diet. surgical note states no need for surgery. Will continue to monitor.
--- NOTE | 2021-04-30 06:35 | PC.NURSE ---
pt sleeping, no sign of distress at time. will continue to monitor
[2021-04-30 07:18] LABS: Hematocrit 32.7 % (37.0-47.0); Hemoglobin 10.2 g/dl (12.0-16.0); Mean Corpuscular HGB Conc 31.2 g/dl (31.0-35.0); Mean Corpuscular Hemoglobin 30.9 pg (27.0-33.0); Mean Corpuscular Volume 99.1 fL (80.0-98.0); Mean Platelet Volume 9.3 fL (9.4-12.3); Platelet Count 224 X10*3/uL (160-400); Red Cell Distribution Width 14.8 % (11.0-16.0); White Blood Count 12.8 X10*3/uL (4.8-10.8)
[2021-04-30 07:44] LABS: Anion Gap 9 (12-20); Blood Urea Nitrogen 18 mg/dL (9-16); Carbon Dioxide 27 mmol/L (22-29); Chloride 110 mmol/L (96-108); Creatinine Clr Calc Pharmacy 58.3; Estimated Glomerular Filt Rate 57; Glucose Random 125 mg/dL (60-115); Sodium 142 mmol/L (135-145)
[2021-04-30 07:47] LABS: Glucose, Whole Blood 106 mg/dL (60-115)
[2021-04-30 07:50] LABS: Calcium 8.2 mg/dL (8.4-10.2)
[2021-04-30] MEDS: Dextrose 5 % and 0.9 % NaCl 1,000 ML 100 ML IVCONT ×3 (07:52→22:59)
--- NOTE | 2021-04-30 07:52 | PC.NURSE ---
Pt received from night baker: AOX4 and c/o generalized abd pain. Pt hx of ovarian CA. No surgery recommended or NG since pt is not vurrently vomitting. Heart sounds normal and lungs clear. Pt abd soft, and generalized ternder. Pt indep with steady gait. Pt tolerated 75% of clear liq breakast.
--- NOTE | 2021-04-30 11:48 | P.PNGS_ITS ---
Subjective Subjective Date of Service: 04/30/21 Interval history: Denies abdominal pain Says she feels well Back to baseline Passing flatus No nausea or vomiting Physical Exam Vital Signs: Vital Signs: Last Vital Signs Temp 98.6 F 04/30/21 11:18 Pulse 67 04/30/21 11:18 Resp 18 04/30/21 11:18 BP 152/65 H 04/30/21 11:18 Pulse Ox 99 04/30/21 11:18 BMI result Body Mass Index 30.9 Const: General: comfortable and no acute distress Resp: Effort & Inspection: normal respiratory effort Cardio: Rate: regular rate GI: Inspection: No distended Palpation (GI): Soft to palpation, not firm, nontender and no guarding Objective Data Active Medications Acetaminophen (Acetaminophen 325 Mg Tablet) 650 mg PO Q6H PRN PRN Reason: Pain, Mild (Pain Scale 1-3) Enoxaparin Sodium (Enoxaparin Sodium 40 Mg/0.4 Ml Syringe) 40 mg SUBCUT Q24H [facility] Last Admin: 04/29/21 12:00 Dose: 40 mg Documented by: SILVINO Dextrose/Sodium Chloride (D5ns) 1,000 mls @ 100 mls/hr IVCONT .Q10H [facility] Last Admin: 04/30/21 07:52 Dose: 100 mls/hr Documented by: NBA Morphine Sulfate (Morphine Sulfate 4 Mg/Ml Cartridge) 4 mg IVPUSH Q4H PRN; Protocol PRN Reason: Pain, Severe (Pain Scale 7-10) Last Admin: 04/29/21 14:48 Dose: 4 mg Documented by: SILVINO Ondansetron HCl (Ondansetron Hcl 4 Mg/2 Ml Vial) 4 mg IVPUSH Q8H PRN PRN Reason: Nausea and Vomiting Oxycodone HCl (Oxycodone Hcl Immed Release 5 Mg Tablet) 5 mg PO Q6H PRN PRN Reason: Pain, Moderate (Pain Scale 4-6 Last Admin: 04/29/21 12:00 Dose: 5 mg Documented by: SILVINO Pharmacy Consult (Consult Rx Perform Med Rec) 1 each MISCELLANE ONCE PRN PRN Reason: Consult order Sodium Chloride (0.9 % Sodium Chloride Flush 3 Ml Syringe) 3 ml IVFLUSH QSHIFT [facility] Last Admin: 04/30/21 07:52 Dose: Not Given Documented by: NBA Non-Admin Reason: Med Not Available Labs CBC & Chem 7: 04/30/21 06:59 04/30/21 06:59 Labs: Laboratory Results - last 24 hr 04/30/21 04/30/21 04/30/21 06:59 06:59 07:32 MCV 99.1 H MCH 30.9 MCHC 31.2 RDW 14.8 Plt Count 224 MPV 9.3 L Absolute Nucleated RBC 0.000 Nucleated RBC % (auto) 0.0 Anion Gap 9 L Estim Creat Clear Calc 58.3 Estimated GFR 57 POC Glucose 106 Random Glucose 125 H Calcium 8.2 L D Microbiology Microbiology Results: Microbiology 04/29/21 08:17 Blood Culture - Preliminary Blood - Venous No growth after 24 hours. 04/29/21 07:41 Blood Culture - Preliminary Blood - Venous No growth after 24 hours. Procedures Date of Service Date of Service: 04/30/21 Progress Note: A&P Assessment and plan (1) SBO (small bowel obstruction): Status: Acute Assessment and Plan: Symptoms have resolved She looks well and has no abdominal pain Abdomen soft and nontender Passing flatus She has metastatic ovarian cancer with carcinomatosis Diet as tolerated No long-term benefit for surgical intervention Fall Risk Details Current Medications: Current Medications Acetaminophen (Acetaminophen 325 Mg Tablet) 650 mg PO Q6H PRN PRN Reason: Pain, Mild (Pain Scale 1-3) Enoxaparin Sodium (Enoxaparin Sodium 40 Mg/0.4 Ml Syringe) 40 mg SUBCUT Q24H [facility] Last Admin: 04/29/21 12:00 Dose: 40 mg Documented by: Dextrose/Sodium Chloride (D5ns) 1,000 mls @ 100 mls/hr IVCONT .Q10H [facility] Last Admin: 04/30/21 07:52 Dose: 100 mls/hr Documented by: Morphine Sulfate (Morphine Sulfate 4 Mg/Ml Cartridge) 4 mg IVPUSH Q4H PRN; Protocol PRN Reason: Pain, Severe (Pain Scale 7-10) Last Admin: 04/29/21 14:48 Dose: 4 mg Documented by: Ondansetron HCl (Ondansetron Hcl 4 Mg/2 Ml Vial) 4 mg IVPUSH Q8H PRN PRN Reason: Nausea and Vomiting Oxycodone HCl (Oxycodone Hcl Immed Release 5 Mg Tablet) 5 mg PO Q6H PRN PRN Reason: Pain, Moderate (Pain Scale 4-6 Last Admin: 04/29/21 12:00 Dose: 5 mg Documented by: Pharmacy Consult (Consult Rx Perform Med Rec) 1 each MISCELLANE ONCE PRN PRN Reason: Consult order Sodium Chloride (0.9 % Sodium Chloride Flush 3 Ml Syringe) 3 ml IVFLUSH QSHIFT [facility] Last Admin: 04/30/21 07:52 Dose: Not Given Documented by: Time Spent With Patient Time: Total time spent is greater than 50% in coordination of care (as documented) at patient's floor/unit and/or counseling patient: Time with patient: 15 - 24 minutes Quality Stroke Does the patient have a stroke diagnosis?: No VTE Prior VTE?: No VTE Risk Level:: Medical - moderate - high VTE Device Contraindication: Treatment Not Indicated VTE Drug Contraindication: N/A - Med Ordered
--- NOTE | 2021-04-30 11:59 | MHC.CM.PN ---
CM SPOKE TO PTS DAUGHTER/HCP, [place] [phone], VIA T/C. [place] REPORTS THE PTS GRAND DAUGHTER LIVES WITH HER AND [place] IS HER [employer] 3 HOURS DAILY. SHE REPORTS THE PT DOES NOT HAVE VNA SERVICES AT THIS TIME BUT HAS HAD THEM IN THE PAST AND WOULD BE INTERESTED IN THEM AT DC IF INDICATED SHE REPORTS THE PT HAS ONLY DM SUPPLIES FOR DME PT HAS A HCP ON FILE AND HER PCP IS BRITT MARTIN CURRENT DC PLAN IS HOME WITH RESUMPTION OF [employer] SERVICES [place] TO TRANSPORT
--- NOTE | 2021-04-30 12:32 | P.PNIM_ITS ---
Subjective Subjective Date of Service: 04/30/21 Review of Systems Follow up SBO Feeling better today Denies nausea, vomiting, diarrhea Passing flatus all other systems are reviewed and are negative Physical Exam Vital Signs: Vital Signs: Last Vital Signs Temp 98.6 F 04/30/21 11:18 Pulse 67 04/30/21 11:18 Resp 18 04/30/21 11:18 BP 152/65 H 04/30/21 11:18 Pulse Ox 99 04/30/21 11:18 BMI result Body Mass Index 30.9 Appearing in no acute distress lung sounds are clear to auscultation heart regular rate rhythm, clear S1, S2 positive bowel sounds, abdomen is soft, nontender neuro patient is alert x3, no focal deficits Objective Data Active Medications Acetaminophen (Acetaminophen 325 Mg Tablet) 650 mg PO Q6H PRN PRN Reason: Pain, Mild (Pain Scale 1-3) Enoxaparin Sodium (Enoxaparin Sodium 40 Mg/0.4 Ml Syringe) 40 mg SUBCUT Q24H [facility] Last Admin: 04/29/21 12:00 Dose: 40 mg Documented by: SILVINO Dextrose/Sodium Chloride (D5ns) 1,000 mls @ 100 mls/hr IVCONT .Q10H [facility] Last Admin: 04/30/21 07:52 Dose: 100 mls/hr Documented by: NAB Morphine Sulfate (Morphine Sulfate 4 Mg/Ml Cartridge) 4 mg IVPUSH Q4H PRN; Protocol PRN Reason: Pain, Severe (Pain Scale 7-10) Last Admin: 04/29/21 14:48 Dose: 4 mg Documented by: SILVINO Ondansetron HCl (Ondansetron Hcl 4 Mg/2 Ml Vial) 4 mg IVPUSH Q8H PRN PRN Reason: Nausea and Vomiting Oxycodone HCl (Oxycodone Hcl Immed Release 5 Mg Tablet) 5 mg PO Q6H PRN PRN Reason: Pain, Moderate (Pain Scale 4-6 Last Admin: 04/29/21 12:00 Dose: 5 mg Documented by: SILVINO Pharmacy Consult (Consult Rx Perform Med Rec) 1 each MISCELLANE ONCE PRN PRN Reason: Consult order Sodium Chloride (0.9 % Sodium Chloride Flush 3 Ml Syringe) 3 ml IVFLUSH QSHIFT [facility] Last Admin: 04/30/21 07:52 Dose: Not Given Documented by: NBA Non-Admin Reason: Med Not Available Labs CBC & Chem 7: 04/30/21 06:59 04/30/21 06:59 Labs: Laboratory Results - last 24 hr 04/30/21 04/30/21 04/30/21 06:59 06:59 07:32 MCV 99.1 H MCH 30.9 MCHC 31.2 RDW 14.8 Plt Count 224 MPV 9.3 L Absolute Nucleated RBC 0.000 Nucleated RBC % (auto) 0.0 Anion Gap 9 L Estim Creat Clear Calc 58.3 Estimated GFR 57 POC Glucose 106 Random Glucose 125 H Calcium 8.2 L D Microbiology Microbiology Results: Microbiology 04/29/21 08:17 Blood Culture - Preliminary Blood - Venous No growth after 24 hours. 04/29/21 07:41 Blood Culture - Preliminary Blood - Venous No growth after 24 hours. Assessment and Plan (1) SBO (small bowel obstruction): Status: Acute Assessment and Plan: This is a 66 yo F with a known history of Ovarian Ca with mets / carciomatosis who presents to the ED with complaints of abdominal symptoms and is diagnosed with pSBO. She is admitted for further care. SBO. Previous hx D5NS Clear liquids tolerating well, advance to full liquids Gen Surg Consult appreciated IV pain control requesting laxative Leukocytosis suspected reactive, no definitive foci of infection monitor DM hold oral meds POC QIDAC sliding scale HTN continue home medications Ovarian Ca with mets outpatient f/u Full Code DVT pptx, Lovenox Endorses daughter Marcia Thorne as her HCP Attending Dr. Garcia Quality Stroke Does the patient have a stroke diagnosis?: No VTE Prior VTE?: No VTE Risk Level:: Medical - moderate - high VTE Device Contraindication: Treatment Not Indicated VTE Drug Contraindication: N/A - Med Ordered
[2021-04-30] MEDS: Enoxaparin Sodium 40 MG/0.4 ML SYRINGE SUBCUT (13:39)
[2021-04-30] MEDS: lisinopriL 40 MG TABLET PO (13:39)
[2021-04-30] MEDS: hydroCHLOROthiazide 25 MG TABLET PO (13:39)
[2021-04-30] MEDS: Milk of Magnesia 30 ML ORAL.SUSP PO (13:39)
[2021-04-30] MEDS: Insulin Glargine,Hum.rec.anlog 100 UNIT/ML 10 ML VIAL 35 UNIT SUBCUT (21:36)
[2021-04-30 21:37] LABS: Glucose, Whole Blood 98 mg/dL (60-115)
[2021-05-01 03:50] VITALS: BP 153/69; PULSE 68; RESP 18; TEMP 36.9; O2SAT 100
[2021-05-01] MEDS: hydroCHLOROthiazide 25 MG TABLET PO (07:08)
[2021-05-01] MEDS: oxyCODONE HCl Immed Release 5 MG TABLET PO (07:08)
[2021-05-01] MEDS: lisinopriL 40 MG TABLET PO (07:08)
[2021-05-01 07:12] VITALS: BP 160/83; PULSE 74; RESP 18; TEMP 36.4; O2SAT 100
[2021-05-01 07:24] LABS: Glucose, Whole Blood 72 mg/dL (60-115)
[2021-05-01] MEDS: Ergocalciferol (Vitamin D2) 1,250 MCG CAPSULE 1250 MCG PO (09:12)
--- NOTE | 2021-05-01 09:54 | P.DS_ITS ---
DS: Providers Provider Date of Service: 05/01/21 <Ana Marmolejo NP - Last Filed: 05/01/21 12:39> Date of admission: 04/29/21 11:25 <Ana Marmolejo NP - Last Filed: 05/01/21 12:39> Primary care physician: Nallely Chicas MD <Ana Marmolejo NP - Last Filed: 05/01/21 12:39> Consults: 04/29/21 10:47 Consult to General Surgery Stat Consulting Provider: Everardo Inman Reason for consultation: sbo Has provider been notified: Yes 04/29/21 11:25 Consult to General Surgery Routine Consulting Provider: Everardo Inman Reason for consultation: pSBO Has provider been notified: Yes <Ana Marmolejo NP - Last Filed: 05/01/21 12:39> Attending physician on discharge: Jose Garcia <Ana Marmolejo NP - Last Filed: 05/01/21 12:39> Discharging clinician: Ana Marmolejo <Ana Marmolejo NP - Last Filed: 05/01/21 12:39> DS: Diagnosis Discharge Diagnosis (1) SBO (small bowel obstruction): Status: Acute <Ana Marmolejo NP - Last Filed: 05/01/21 12:39> DS: Summary Hospital Course Hospital Course: HP as per admitting provider This is a 66 yo Dominican speaking (history taken with the help of a Dominican speaking social services counselor) F with a PMH as outlined below who is actively being treated for ovarian Ca and presents to [facility] ED today with complaints of bilateral lower quad abdominal pain and nausea x 3 which began on the evening prior to arrival. 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 She reported that she had 2 BMs on the day [employer] WORK[employer] and has been passing flatus since. She reported 1 more episode of NB vomiting this AM in the ED. In the ED, her work up revealed leukocytosis and a CT scan suggestive of SBO. She was given IV analgesics and anti-emetics. She was given a fluid bolus and was evaluated by Gen Surg who recommended admission under medical services. COVID vaccination: 3 shots including booster (unsure if Moderna vs Pfizer) SBO. Previous hx and ovarian cancer with mets treated with D5NS and NPO initially diet advanced, tolerated well Seen and evaluated by General surgery, patient did not require any surgical intervention or NG tube pain well controlled Discharge home to follow-up with primary care provider as needed <Ana Marmolejo NP - Last Filed: 05/01/21 12:39> Time Spent with Patient Time attestation: Total time spent providing and/or coordinating discharge services: <Ana Marmolejo NP - Last Filed: 05/01/21 12:39> Discharge coordination time: Greater than 30 minutes <Ana Marmolejo NP - Last Filed: 05/01/21 12:39> Quality: Stroke Does the patient have a stroke diagnosis?: No <Ana Marmolejo NP - Last Filed: 05/01/21 12:39> Physical Exam Vital Signs: Vital Signs: Last Vital Signs Temp 97.5 F 05/01/21 07:12 Pulse 74 05/01/21 07:12 Resp 18 05/01/21 07:12 BP 160/83 H 05/01/21 07:12 Pulse Ox 100 05/01/21 07:12 BMI result Body Mass Index 30.9 <Ana Marmolejo NP - Last Filed: 05/01/21 12:39> Appearing in no acute distress head is normocephalic atraumatic eyes pupils are PERRLA sclera is anicteric mouth throat mucous membranes are intact and moist neck is supple no lymphadenopathy, no JVD noted lung sounds are clear to auscultation heart regular rate rhythm, clear S1, S2 positive bowel sounds, abdomen is soft, nontender neuro patient is alert x3, no focal deficits <Ana Marmolejo NP - Last Filed: 05/01/21 12:39> DS: Data Data Completed and Pending Completed studies during hospitalization [Text1]: Procedures Drainage of Peritoneal Cavity, Percutaneous Approach (03/10/20) Transfusion of Nonautologous Red Blood Cells into Peripheral Vein, Percutaneous Approach (03/10/20) <Ana Marmolejo NP - Last Filed: 05/01/21 12:39> Labs on day of discharge: Laboratory Results - last 24 hr 04/30/21 05/01/21 21:34 07:20 POC Glucose 98 72 Preliminary micro results at discharge 04/29/21 07:41 Blood Culture - Preliminary Blood - Venous No growth after 48 hours. 04/29/21 08:17 Blood Culture - Preliminary Blood - Venous No growth after 24 hours. <Ana Marmolejo NP - Last Filed: 05/01/21 12:39> Discharge Plan Discharge Anticipated Discharge Date/Time: 05/01/21 09:52 <Ana Marmolejo NP - Last Filed: 05/01/21 12:39> Patient Disposition: Home, Self-Care <Ana Marmolejo NP - Last Filed: 05/01/21 12:39> Discharge Diagnosis: SBO <Ana Marmolejo NP - Last Filed: 05/01/21 12:39> SBO <Jose Garcia MD - Last Filed: 05/01/21 15:10> Referrals: Nallely Chicas MD [Primary Care Provider] - 1 Week <Ana Marmolejo NP - Last Filed: 05/01/21 12:39> Discharge Medications: Continued metformin 500 mg Tablet 500 mg BIDWM RF: 0 insulin glargine 100 unit/mL (3 mL) Insulin Pen 35 unit SUBCUT BEDTIME RF: 0 atorvastatin 40 mg Tablet 40 mg PO DAILY RF: 0 hydrochlorothiazide 25 mg Tablet 25 mg PO DAILY RF: 0 lisinopril 40 mg Tablet 40 mg PO DAILY RF: 0 ondansetron HCl 4 mg tablet 2 tab PO BID PRN (Reason: vomiting) RF: 0 ergocalciferol (vitamin D2) 1,250 mcg (50,000 unit) capsule 1 cap PO WE RF: 0 albuterol sulfate [ProAir HFA] 90 mcg/actuation HFA aerosol inhaler 2 puff PO Q4-6H PRN (Reason: Shortness Of Breath) RF: 0 <Ana Marmolejo NP - Last Filed: 05/01/21 12:39> Discharge Orders: Discharge Order (Routine); Ordered 05/01/21 Ordered By: Ana Marmolejo <Ana Marmolejo NP - Last Filed: 05/01/21 12:39> Diet: advance to usual diet <Ana Marmolejo NP - Last Filed: 05/01/21 12:39> advance to usual diet <Jose Garcia MD - Last Filed: 05/01/21 15:10> Activity on Discharge: As tolerated <Ana Marmolejo NP - Last Filed: 05/01/21 12:39> As tolerated <Jose Garcia MD - Last Filed: 05/01/21 15:10> Stand Alone Forms: Patient Portal Discharge page <Ana Marmolejo NP - Last Filed: 05/01/21 12:39> Care Plan Goals: complete resolution of bowel obstruction symptoms <Ana Marmolejo NP - Last Filed: 05/01/21 12:39> Health Concerns: small-bowel obstruction <Ana Marmolejo NP - Last Filed: 05/01/21 12:39> Plan of Treatment: follow-up with primary care provider as needed <Ana Marmolejo NP - Last Filed: 05/01/21 12:39> Assessment: see discharge summary <Ana Marmolejo NP - Last Filed: 05/01/21 12:39>
[2021-05-01 10:48] VITALS: BP 149/63; PULSE 73; RESP 18; TEMP 36.6; O2SAT 99
[2021-05-01 11:38] LABS: Glucose, Whole Blood 92 mg/dL (60-115)
--- NOTE | 2021-05-01 11:41 | MHC.CM.PN ---
PLAN IS DISCHARGE HOME TODAY - SELF CARE PATIENT AND RN AWARE OF PLAN
[2021-05-01] MEDS: Heparin Sodium,Porcine Flush 50 UNITS/5 ML SYRINGE IVFLUSH (15:14)
== END 2021-05-01 15:30 | disposition home or self-care (01) | DRG 247 ==
LOC: HO.ED 04-29 10:54 → HO.EDOVER 04-29 11:31 → HO.S3 04-30 07:51
PROVIDERS: Admitting Provider Family Medicine; Emergency Provider Emergency Medicine; PCP Internal Medicine; Visit Provider Nurse Practitioner Acute Care
DX: K56.600 Partial intestinal obstruction, unspecified as to cause (principal); C80.0 Disseminated malignant neoplasm, unspecified; C56.9 Malignant neoplasm of unspecified ovary; D72.829 Elevated white blood cell count, unspecified; Z20.822 Contact with and (suspected) exposure to COVID-19; Z79.4 Long term (current) use of insulin; Z79.84 Long term (current) use of oral hypoglycemic drugs; Z79.899 Other long term (current) drug therapy
CPT/HCPCS: 0241U; 36415; 74176; 80048; 80053; 81001; 82947; 83605; 83690; 84484; 85025; 85027; 87040; 93005; 99218; 99285; J1642; J1650; J1885; J2270; J2405

== ENCOUNTER → 2021-08-13 17:36 | Outpatient (REF) | payer MEDICAID, SELFPAY ==
--- NOTE | 2021-08-13 17:41 | CA_ITS ---
Transthoracic Echocardiogram Patient (Last, First, Middle): Marlin Moy A Gender: Female Date of : 1955 Age: 66 Procedure Date: 08/13/2021 Procedure Type: Transthoracic Echocardiogram Location: OP Height: 162.56 cm Weight: 83.46 kg BSA: 1.89 m2 Heart Rate: bpm BP: 135 / 80 mmHg Scrap Carrier: TO/VH Referring MD: Nallely Chicas MD Symptoms: C56.9 MALIGNANT NEOPLASM OVARY, E 11,9 TYPE 2 DM, I10 HTN Study Quality: Fair ECG Rhythm: Sinus Conclusions: - The left ventricular systolic function is normal. The visually estimated ejection fraction is between 65-70%. - No obvious valvular pathology seen on this study. Findings Left Ventricle Normal left ventricular cavity size. There is normal left ventricular wall thickness. The left ventricular systolic function is normal. The visually estimated ejection fraction is between 65-70%. There is no evidence of regional wall motion abnormalities. Diastolic function is normal for age. LV peak GLS -18.1% (normal). Right Ventricle Normal right ventricular cavity size and systolic function. Atria Both atria are normal in size. Aortic Valve There is a normal trileaflet aortic valve. There is no aortic valve stenosis. There is no aortic valve regurgitation. Mitral Valve The mitral valve appears normal. There is no mitral valve regurgitation. There is no mitral valve stenosis. Pulmonic Valve The pulmonic valve is likely normal. Tricuspid Valve Normal tricuspid valve structure. There is trace tricuspid valve regurgitation. The pulmonary artery systolic pressure is normal. Great Vessels The asc aorta is normal in size. Venous The inferior vena cava is normal in size and collapses greater than 50% with inspiration. Pericardium/Pleural There is no evidence of pericardial effusion. Prior Study Comparison No prior study available for comparison. Recommendations, Care & Conclusions No obvious valvular pathology seen on this study. Measurements 2D Linear Measurements IVSd: 0.71 0.6-0.9/0.6-1.0 cm LVIDd: 4.28 3.9-5.3/4.2-5.9 cm LVIDd Index: 2.26 2.4-3.2/2.2-3.1 cm/m2 LVIDs: 2.93 2.0-3.6 cm LVPWd: 0.71 0.7-1.1 cm LA Diam: 3.30 2.7-3.8/3.0-4.0 cm LAIDs Index: 1.75 1.5-2.3 cm/m2 LV Mass: 111.26 67-162/88-224 g LV Mass Index: 58.87 43-95/49-115 g/m2 LVOT Diam: 1.90 3.0+(-)1.3 cm 2D Systolic Function EF 4C: 59.10 >55% EF 2C: 65.30 >55% EF BiP: 61.90 >55% Mitral Valve MV Pk E: 1.04 MV PK A: 1.12 MV Decel Time: 171.00 E/A: 0.90 E'Lateral: 9.14 E'Medial: 10.10 E/E' Med: 10.30 E/E' Lat: 11.40 PHT: 50.00 MVA PHT: 4.40 Decel [place]: 6.06 Aortic Valve AoV Pk Oswald: 1.55 AoV Mn Oswald: 1.04 AoV VTI: 0.32 AoV Pk Grad: 10.00 Aov Mn Grad: 5.00 CESAR Cont.VTI: 2.33 LVOT LVOT Pk Oswald: 1.27 LVOT Mn Oswald: 0.76 LVOT VTI: 0.26 LVOT Pk Grad: 6.00 LVOT Mn Grad: 3.00 LVOT Diam: 1.90 LVOT Area: 2.84 Diastolic Function MV Pk E: 1.04 MV Pk A: 1.12 E/A: 0.90 E'Medial: 10.10 E/E' Med: 10.30 E' Laterial: 9.14 E/E' Lat: 11.40 Right Ventricle TAPSE (mm): 24.80 TVS' Oswald: 12.10 Tricuspid Valve TR Pk Oswald: 2.55 TR Pk Grad: 26.00 RA Press: 3.00 RVSP: 29.00 Great Vessels Aorta Sinus of Valsalva: 2.85 2.0-3.[address] [place]: 2.27 1.7-3.4 cm Ao Asc: 2.70 2.1-3.4 cm Ao Arch: 2.90 Updated in Other Vendor System with Status of Final Johny Curry MD electronically signed on 08/14/2021 12:37:20 PM with status of Final
== END ==
LOC: HO.CARD 17:36
PROVIDERS: Visit Provider Internal Medicine
DX: I10 Essential (primary) hypertension (principal); C56.9 Malignant neoplasm of unspecified ovary; E11.9 Type 2 diabetes mellitus without complications
CPT/HCPCS: 93306; 93356

== ENCOUNTER 2021-09-03 11:03 | Outpatient (REF) | payer MEDICAID, SELFPAY ==
[2021-09-03 11:39] LABS: MANUAL DIFF FLAG NO
[2021-09-03 12:05] LABS: Basophils Percent Auto 0.2 % (0-2); Eosinophils Absolute Auto 0.1 X10*3/uL (0.0-0.4); Eosinophils Percent Auto 0.8 % (0-4); Hematocrit 30.8 % (37.0-47.0); Hemoglobin 9.3 g/dl (12.0-16.0); Imm Gran Abs Auto 0.02 X10*3/uL (0.00-0.03); Imm Gran Pct Auto 0.2 % (0.0-0.4); Lymphocytes Absolute Auto 3.1 X10*3/uL (1.2-4.9); Lymphocytes Percent Auto 36.3 % (20-40); Mean Corpuscular HGB Conc 30.2 g/dl (31.0-35.0); Mean Corpuscular Hemoglobin 32.1 pg (27.0-33.0); Mean Corpuscular Volume 106.2 fL (80.0-98.0); Mean Platelet Volume 10.3 fL (9.4-12.3); Monocytes Absolute Auto 1.2 X10*3/uL (0.1-1.2); Monocytes Percent Auto 13.7 % (2-11); Neutrophils Absolute Auto 4.1 x10*3/uL (2.0-8.3); Neutrophils Percent Auto 48.8 % (45-73); Platelet Count 301 X10*3/uL (160-400); Red Cell Distribution Width 21.2 % (11.0-16.0); White Blood Count 8.4 X10*3/uL (4.8-10.8)
[2021-09-03 12:26] LABS: Alanine Aminotransferase 14 U/L (0-31); Albumin Level 3.7 g/dL (3.5-5.0); Alkaline Phosphatase 66 U/L (39-117); Anion Gap 14 (12-20); Aspartate Amino Transferase 29 U/L (5-31); Bilirubin Total 0.3 mg/dL (0.0-1.0); Blood Urea Nitrogen 25 mg/dL (9-16); Calcium 9.5 mg/dL (8.4-10.2); Carbon Dioxide 25 mmol/L (22-29); Chloride 107 mmol/L (96-108); Estimated Glomerular Filt Rate 60; Glucose Random 77 mg/dL (60-115); Potassium 4.9 mmol/L (3.3-5.1); Sodium 141 mmol/L (135-145); Total Protein 7.7 g/dL (6.5-8.0)
[2021-09-04 09:18] LABS: CA 125 New Method 711 U/mL (<35); CA-125 711 U/mL (<35)
== END 2021-09-03 11:04 | disposition home or self-care (01) ==
LOC: HO.LAB 11:03
PROVIDERS: PCP Internal Medicine; Visit Provider Internal Medicine Medical Oncology
DX: C56.9 Malignant neoplasm of unspecified ovary (principal)
CPT/HCPCS: 36415; 80053; 85025; 86304

== ENCOUNTER 2021-11-27 10:51 | Emergency (ER) | payer MEDICAID, SELFPAY ==
[2021-11-27] VITALS (10 sets, daily range): BP systolic 113–159; BP diastolic 63–76; PULSE 100–115; RESP 14–20; TEMP 36.8–37.5; O2SAT 99–100; BMI 30.6
--- NOTE | ~2021-11-27 | CT_ITS ---
EXAMINATION: CT SOFT TISSUE NECK WITHOUT CONTRAST CLINICAL INFORMATION: 66-year-old female with history of globus sensation. History of cancer. COMPARISON: CT neck from 09/27/2018. TECHNIQUE: Helical imaging was performed in the axial plane with generation of coronal and sagittal reformatted images. This CT examination was performed using dose optimization techniques as appropriate, variously including the following: *Automated exposure control *Adjustment of mA and/or kV according to patient size (this includes techniques or standardized protocols for targeted exams where dose is matched to indication/reason for exam; i.e. extremities or head) *Use of iterative reconstruction technique DLP: 1834 mGy-cm FINDINGS: Parotid glands, submandibular glands, and thyroid gland are normal. The nasopharynx, oral cavity, tongue base, and tonsillar pillars are unremarkable. No contour abnormality within the oral cavity or pharyngeal mucosal space. The parapharyngeal fat planes are preserved. The hypopharynx, epiglottis, and preepiglottic space are normal. Laryngeal structures normal. No fluid collections in the deep soft tissues. Normal sized lymph nodes of the suprahyoid and infrahyoid neck without evidence of lymphadenopathy by size criteria. Skull base is intact and the mastoid air cells and middle ear cavities are clear. The visualized intracranial structures are unremarkable. No extra-axial fluid collection. A mucus retention cyst is present within the right maxillary sinus (also observed on 09/27/2018). Otherwise, the paranasal sinuses are well aerated. The orbital escobar, globes and retrobulbar soft tissues are unremarkable. Mild spondylosis of the cervical spine. The visualized cervical and thoracic vertebra have normal height and alignment. No prevertebral soft tissue swelling. Lung apices are clear. No apical mass or pneumothorax. Also, no evidence of a mass in the visualized portion of the mediastinum. The the visualized proximal esophagus has normal wall thickness. There is a right chest wall medication port, and the right IJ catheter is partially included in [id number]. CT/CT soft tissue neck wo con IMPRESSION: * No acute imaging findings compared to the prior neck CT from 09/27/2018. * No evidence of soft tissue mass or lymphadenopathy in the neck.
--- NOTE | ~2021-11-27 | CT_ITS ---
EXAMINATION: CT ABDOMEN AND PELVIS WITHOUT CONTRAST CLINICAL INFORMATION: Abdominal pain COMPARISON: CT abdomen pelvis 04/29/2021 TECHNIQUE: Multidetector volumetric imaging was performed from the superior aspect of the liver through the pubic symphysis. Sagittal and coronal reformatted images were obtained on the technologist's workstation. This CT examination was performed using dose optimization techniques as appropriate, variously including the following: *Automated exposure control *Adjustment of mA and/or kV according to patient size (this includes techniques or standardized protocols for targeted exams where dose is matched to indication/reason for exam; i.e. extremities or head) *Use of iterative reconstruction technique DLP: 1834 mGy-cm FINDINGS: LUNG BASES: The visualized lung bases are unremarkable. LIVER, GALLBLADDER, AND BILIARY TREE: A large amount of ascites is again seen throughout the abdomen. The liver is normal in size but with a questionable nodular border raising the possibility cirrhosis. No focal hepatic lesion or biliary ductal dilatation is present. The gallbladder is unremarkable with no evidence of radiopaque gallstones, gallbladder wall thickening, or obvious pericholecystic inflammatory changes. PANCREAS: Unremarkable. SPLEEN: Unremarkable. ADRENAL GLANDS: Mildly thickened KIDNEYS AND URETERS: The kidneys are normal in size, shape, and attenuation. No hydronephrosis, hydroureter, or calculi seen. No perinephric stranding. BLADDER: Unremarkable. GASTROINTESTINAL TRACT: The small and large bowel are unremarkable. Small bowel dilatation seen previously is no longer present. The appendix is probably normal but there is no evidence of appendicitis. There is continued presence of omental carcinomatosis with mass like densities in the omentum and mesentery (for example see right lower quadrant (21:49), just above the gallbladder (21:29) and adjacent to the descending colon.) ABDOMINAL WALL: No significant hernia is appreciated. LYMPH NODES: No retroperitoneal gross lymphadenopathy. Small mesenteric lymph nodes are seen VASCULAR: Unremarkable. PELVIC VISCERA: Surgically removed OSSEOUS STRUCTURES: Unremarkable. CT/CT abdomen pelvis wo con IMPRESSION: No significant interval change since the prior study with large volume ascites and evidence of peritoneal carcinomatosis. Fleischner guidelines were followed.
--- NOTE | ~2021-11-27 | CT_ITS ---
EXAMINATION: CT HEAD WITHOUT CONTRAST CLINICAL INFORMATION: Headache. COMPARISON: None TECHNIQUE: Contiguous axial imaging was performed from the skull base to vertex without intravenous administration of contrast. Coronal and sagittal reformatted images were obtained. This CT examination was performed using dose optimization techniques as appropriate, variously including the following: *Automated exposure control *Adjustment of mA and/or kV according to patient size (this includes techniques or standardized protocols for targeted exams where dose is matched to indication/reason for exam; i.e. extremities or head) *Use of iterative reconstruction technique DLP: 692.30 mGy-cm FINDINGS: There is no evidence of acute intracranial hemorrhage or territorial infarction. No abnormal mass effect or midline shift is seen. Heranndez to white matter differentiation is well preserved. No extra-axial fluid collections are identified. The ventricles are normal in size. There is no abnormal attenuation within the brain parenchyma. The osseous structures and soft tissues are normal. The visualized paranasal sinuses show a retention cyst versus inflammatory polyp at the base of the right maxillary sinus measuring 1.8 cm (image 31, series 12). The remainder the paranasal sinuses are clear. The mastoid air cells are clear. CT/CT head/brain wo con IMPRESSION: No acute intracranial pathology.
[2021-11-27] MEDS: Ondansetron ODT 4 MG TAB.RAPDIS TRANSLINGU (11:33)
[2021-11-27 11:50] LABS: Strep A Nucleic Acid Negative (Negative)
[2021-11-27 11:55] LABS: COVID-19 Test Negative (Negative)
--- NOTE | 2021-11-27 13:38 | ED_ITS ---
HPI - General Adult General Chief complaint: Nausea/Vomiting/Diarrhea <DONTA Jones - Last Filed: 11/27/21 18:03> Stated complaint: sore throat, throwing up <DONTA Jones - Last Filed: 11/27/21 18:03> Time Seen by Provider: 11/27/21 13:38 <DONTA Jones Last Filed: 11/27/21 18:03> Source: patient and american sign language interpreter <DONTA Jones Last Filed: 11/27/21 18:03> Mode of arrival: ambulatory <DONTA Jones Last Filed: 11/27/21 18:03> Limitations: language barrier <DONTA Jones Last Filed: 11/27/21 18:03> History of Present Illness HPI narrative: Patient is a 66 year old female presenting to the emergency department today with a sore throat, nausea, and vomiting. Patient states that over the last 4 days, she has had a sore throat, nausea, and vomiting. Patient states that she has a ovarian cancer for which she is on chemotherapy. Patient states that starting in October she was placed on an oral chemotherapy medication. Patient states that she follows with Dr. Irina Burks at [facility]. Patient denies any dizziness, lightheadedness, abdominal pain, fever, chills, blurry vision, double vision, loss of vision, chest pain, difficulty breathing, shortness of breath, back pain, night sweats, pain with urination, increased urinary frequency, increased urinary urgency, blood in her urine or stool, syncope or a near syncopal episode, recent trauma or falls, bowel incontinence, bladder incontinence, bowel retention, bladder retention, or any other complaints at this time. <DONTA Jones Last Filed: 11/27/21 18:03> Onset (ago): day(s) (4) <DONTA Jones Last Filed: 11/27/21 18:03> Radiation: non-radiation <DONTA Jones Last Filed: 11/27/21 18:03> Severity: mild <DONTA Jones Last Filed: 11/27/21 18:03> Severity scale (1-10): 2 <DONTA Jones Last Filed: 11/27/21 18:03> Relieving factors: none <DONTA Jones - Last Filed: 11/27/21 18:03> Exacerbating factors: none <DONTA Jones - Last Filed: 11/27/21 18:03> Associated symptoms: nausea/vomiting <DONTA Jones Last Filed: 11/27/21 18:03> Treatments prior to arrival: none <DONTA Jones Last Filed: 11/27/21 18:03> Related Data Home medications: Home Medications Medication Instructions Recorded Confirmed metformin 500 mg tablet 500 mg BIDWM 03/10/20 04/29/21 insulin glargine 100 unit/mL (3 35 unit subcut BEDTIME 04/30/20 04/29/21 mL) subcutaneous pen atorvastatin 40 mg tablet 40 mg PO DAILY 05/01/20 04/29/21 hydrochlorothiazide 25 mg tablet 25 mg PO DAILY 05/01/20 04/29/21 lisinopril 40 mg tablet 40 mg PO DAILY 05/01/20 04/29/21 albuterol sulfate 90 mcg/actuation 2 puff PO Q4-6H PRN Shortness Of 03/05/21 04/29/21 aerosol inhaler (ProAir HFA) Breath ergocalciferol (vitamin D2) 1,250 1 cap PO WE 03/05/21 04/29/21 mcg (50,000 unit) capsule ondansetron HCl 4 mg tablet 2 tab PO BID PRN vomiting 03/05/21 04/29/21 <DONTA Jones - Last Filed: 11/27/21 18:03> Allergies/adverse reactions: Allergies Allergy/AdvReac Type Severity Reaction Status Date / Time No Known Allergies Allergy Verified 04/29/21 00:00 <DONTA Jones - Last Filed: 11/27/21 18:03> Review of Systems Constitutional: Constitutional: Reports no additional constitutional complaints, Denies chills, Denies fever(s) and Denies night sweats <DONTA Jones Last Filed: 11/27/21 18:03> Eyes: Eyes: Reports no additional eye complaints, Denies blurry vision, Denies change in vision, Denies diplopia, Denies eye discharge, Denies loss of vision and Denies eye pain <DONTA Jones - Last Filed: 11/27/21 18:03> ENT: Denies dizziness and Reports sore throat <DONTA Jones - Last Filed: 11/27/21 18:03> Cardiovascular: Cardiovascular: Reports no additional cardiovascular complaints, Denies chest pain, Denies lightheadedness, Denies Loss of Consciousness and Denies dyspnea <DONTA Jones - Last Filed: 11/27/21 18:03> Respiratory: Respiratory: Reports no additional respiratory complaints and Denies dyspnea <DONTA Jones - Last Filed: 11/27/21 18:03> Gastrointestinal: Gastrointestinal: Reports no additional gastrointestinal complaints, Denies abdominal pain, Denies melena, Denies hematochezia, Denies change in bowel habits, Denies change in stool character, Reports nausea and Reports vomiting <DONTA Jones - Last Filed: 11/27/21 18:03> Genitourinary: Genitourinary: Denies hematuria, Denies urinary frequency, Denies dysuria, Denies urinary incontinence, Denies urinary hesitancy and Denies urinary urgency <DONTA Jones - Last Filed: 11/27/21 18:03> Musculoskeletal: Musculoskeletal: Reports no additional musculoskeletal complaints, Denies numbness and Denies tingling <DONTA Jones - Last Filed: 11/27/21 18:03> Neurologic: Denies dizziness, Denies loss of vision, Denies numbness and Denies tingling <DONTA Jones - Last Filed: 11/27/21 18:03> Psychiatric: Psychiatric: Reports no additional psychiatric complaints <DONTA Jones - Last Filed: 11/27/21 18:03> Endocrine: Endocrine: Reports no additional endocrine complaints <DONTA Jones - Last Filed: 11/27/21 18:03> Hematologic/Lymphatic: Hematologic/Lymphatic: Reports no additional hematologic/lymphatic complaints <DONTA Jones - Last Filed: 11/27/21 18:03> Allergic/Immunologic: Allergic/Immunologic: Reports no additional allergic/immunologic complaints <DONTA Jones - Last Filed: 11/27/21 18:03> PMFSH Past Medical History Attestation statement: The following information was validated with the patient. <DONTA Jones - Last Filed: 11/27/21 18:03> Source: old records reviewed <DONTA Jones - Last Filed: 11/27/21 18:03> Medical History: Medical History Abdominal carcinomatosis Asthma Diabetes Gastric cancer Hyperlipidemia Hypertension Ovarian cancer <DONTA Jones - Last Filed: 11/27/21 18:03> Surgical History: Surgical History H/O section S/P total hysterectomy (~05/2020) <DONTA Jones - Last Filed: 11/27/21 18:03> Social History Social History: Social History Household Members: Significant Other and Family Housing: Apartment Do you presently have visiting nurse or other home services: No Alcohol intake: never Patient Tobacco Use Status: Never used Tobacco Use of substances other than those prescribed or required for medical reasons: No Advance Directives: Yes Advance Directives on File: Yes Advance Directives Date on File: 03/06/21 service: No Current occupational status: employed, unemployed and disabled <DONTA Jones - Last Filed: 11/27/21 18:03> Physical Exam ED Vital Signs: Vital Signs - 24 hr 11/27/21 11:29 11/27/21 14:00 11/27/21 14:18 Temperature 99.3 F 98.9 F 99.5 F Pulse Rate 115 H 105 H 103 H Respiratory Rate 16 20 14 Blood Pressure 159/76 H 113/63 127/66 Pulse Oximetry 99 100 Oxygen Delivery Method Room Air Room Air Room Air 11/27/21 16:57 11/27/21 18:03 11/27/21 18:20 Temperature 98.9 F 98.9 F 98.8 F Pulse Rate 100 102 H 108 H Respiratory Rate 20 16 16 Blood Pressure 124/72 130/76 123/71 Pulse Oximetry 99 Oxygen Delivery Method Room Air 11/27/21 18:49 11/27/21 19:55 11/27/21 21:43 Temperature 98.8 F 98.3 F Pulse Rate 104 H 111 H 108 H Respiratory Rate 18 16 18 Blood Pressure 148/68 H 141/68 H 148/68 H Pulse Oximetry 100 Oxygen Delivery Method Room Air 11/27/21 23:12 Temperature Pulse Rate Respiratory Rate 14 Blood Pressure Pulse Oximetry Oxygen Delivery Method BMI result Body Mass Index 30.6 <DONTA Jones Last Filed: 11/27/21 18:03> Vital Signs - 24 hr 11/27/21 11:29 11/27/21 14:00 11/27/21 14:18 Temperature 99.3 F 98.9 F 99.5 F Pulse Rate 115 H 105 H 103 H Respiratory Rate 16 20 14 Blood Pressure 159/76 H 113/63 127/66 Pulse Oximetry 99 100 Oxygen Delivery Method Room Air Room Air Room Air 11/27/21 16:57 11/27/21 18:03 11/27/21 18:20 Temperature 98.9 F 98.9 F 98.8 F Pulse Rate 100 102 H 108 H Respiratory Rate 20 16 16 Blood Pressure 124/72 130/76 123/71 Pulse Oximetry 99 Oxygen Delivery Method Room Air 11/27/21 18:49 11/27/21 19:55 11/27/21 21:43 Temperature 98.8 F 98.3 F Pulse Rate 104 H 111 H 108 H Respiratory Rate 18 16 18 Blood Pressure 148/68 H 141/68 H 148/68 H Pulse Oximetry 100 Oxygen Delivery Method Room Air 11/27/21 23:12 Temperature Pulse Rate Respiratory Rate 14 Blood Pressure Pulse Oximetry Oxygen Delivery Method BMI result Body Mass Index 30.6 <DONTA Moss Last Filed: 11/28/21 02:44> Const General: cooperative, no acute distress, alert and awake <DONTA Jones Last Filed: 11/27/21 18:03> Nutritional Appearance: well nourished <DONTA Jones Last Filed: 11/27/21 18:03> Orientation/consciousness: patient oriented x3 <DONTA Jones Last Filed: 11/27/21 18:03> Limitations: no limitations <DONTA Jones Last Filed: 11/27/21 18:03> HENMT Head: Yes normal to inspection and Yes atraumatic <DONTA Jones Last Filed: 11/27/21 18:03> Ears: hearing grossly normal bilaterally and external ears normal <Julia Mckeon [place] - Last Filed: 11/27/21 18:03> General nose exam: Normal external nose present, no nasal discharge noted and no epistaxis <Julia Mckeon [facility] Last Filed: 11/27/21 18:03> Face and sinus: Yes normal facial exam, No abrasion and No laceration <Julia Mckeon [place] - Last Filed: 11/27/21 18:03> Mouth: Normal oral and palatal mucosa present, no drooling and no muffled voice <Julia Mckeon [facility] Last Filed: 11/27/21 18:03> Throat: Yes uvula midline, No peritonsillar mass, No uvula laterally displaced, No uvular edema and Yes other (mild erythema to the posterior pharynx) <Julia Mckeon [facility] Last Filed: 11/27/21 18:03> Eyes General: appearance normal, both eyes and all related structures <Julia Mckeon [place] - Last Filed: 11/27/21 18:03> Periorbital: periorbital findings normal <Julia Mckeon [facility] Last Filed: 11/27/21 18:03> Eyelids: Yes eyelids normal <Julia Mckeon [facility] Last Filed: 11/27/21 18:03> Conjunctivae: conjunctivae normal <Julia Mckeon [place] - Last Filed: 11/27/21 18:03> Pupils: Equal, round and reactive pupils present <Julia Mckeon [facility] Last Filed: 11/27/21 18:03> EOM: EOMs intact bilaterally <Julia Mckeon [facility] Last Filed: 11/27/21 18:03> Neck Neck: Yes normal visual inspection, Yes full ROM and Yes no lymphadenopathy <DONTA Jones - Last Filed: 11/27/21 18:03> Chest Chest palpation & inspection: normal inspection of the chest <DONTA Jones - Last Filed: 11/27/21 18:03> Resp Effort & Inspection: normal respiratory effort and able to speak in complete sentences <DONTA Jones - Last Filed: 11/27/21 18:03> Auscultation: clear to auscultation bilaterally <Julia Mckeon PA - Last Filed: 11/27/21 18:03> Cardio Rate: regular rate <Julia Mckeon PA - Last Filed: 11/27/21 18:03> Rhythm: regular rhythm <Julia Mckeon PA - Last Filed: 11/27/21 18:03> GI Inspection: Yes normal to inspection <Julia Mckeon PA - Last Filed: 11/27/21 18:03> Palpation (GI): Soft to palpation, not firm, nontender, no guarding and not rigid <Julia Mckeon PA - Last Filed: 11/27/21 18:03> Neuro General: patient oriented x3 and moves all extremities <Julia Mckeon PA - Last Filed: 11/27/21 18:03> Cranial nerves: Yes Equal, round and reactive pupils present <Julia Mckeon PA - Last Filed: 11/27/21 18:03> Cognition (Neuro): normal cognition <Julia Mckeon PA - Last Filed: 11/27/21 18:03> Motor exam (neuro): 5/5 motor strength present throughout <Julia Mckeon PA - Last Filed: 11/27/21 18:03> Sensory Exam: Normal double simultaneous stimulation for sensation <Julia Mckeon PA - Last Filed: 11/27/21 18:03> Coordination: [id number] test normal <Julia Mckeon PA - Last Filed: 11/27/21 18:03> Extrem General: Yes normal to inspection, Yes full ROM and Yes capillary refill normal <Julia Mckeon PA - Last Filed: 11/27/21 18:03> Psych Appearance: grossly normal <Julia Huangtc PA - Last Filed: 11/27/21 18:03> Mental Status: mental status grossly normal <Julia Huangtc PA - Last Filed: 11/27/21 18:03> Affect: normal affect <Julia Huangtc PA - Last Filed: 11/27/21 18:03> Attitude: cooperative <Julia Huangtc PA - Last Filed: 11/27/21 18:03> Thought process: Normal thought process present <Julia Mike PA - Last Filed: 11/27/21 18:03> Thought content: Normal thought content present <DONTA Jones - Last Filed: 11/27/21 18:03> Insight: Good insight present (Psych) <DONTA Jones - Last Filed: 11/27/21 18:03> Course Reevaluation(s) Reevaluation #1: Patient tolerated transfusion well, vital signs are stable, CT soft tissue neck with no acute findings. Pending repeat CBC however, labs have hemolyzed a few times. <DONTA Moss - Last Filed: 11/28/21 02:44> Time: 01:00 <DONTA Moss - Last Filed: 11/28/21 02:44> Reevaluation #2: Spoke to the lab and they tell me due to platelet aggregation unable to obtain a platelet value, will order an isolated platelet count on a different media. I spoke to patient and she tells me that she has been feeling extremely fatigued, tired, weak over the past week or so, worsening. She tells me she has not been able to eat and drink much which makes at all worse. Will call [facility] for guidance. <DONTA Moss - Last Filed: 11/28/21 02:44> Time: 01:30 <DONTA Moss - Last Filed: 11/28/21 02:44> Reevaluation #3: Spoke to Dr. Burks who tells me that there is no reason for this patient to be admitted and she can follow up with finance manager/Oncology as soon as possible. <DONTA Moss - Last Filed: 11/28/21 02:44> Time: 01:47 <DONTA Moss - Last Filed: 11/28/21 02:44> Additional Reevaluation(s): 0235 PLTs improved to 51. Advised patient to return with new or worsening symptoms. Outlined worrisome signs and symptoms on discharge. At this time I feel comfortable discharge home with director of strategic communications oncology follow-up and PCP follow-up. <DONTA Moss - Last Filed: 11/28/21 02:44> Consultations Consultation #1: Spoke to Dr. Irina Burks, the patient's [employer] [employer] oncologist. She recommended the patient be transfused with platelets and if the rest of her work up is negative, she be discharged and hold her oral chemotherapy medication. She states that she will follow up with the patient to have her platelets repeated in 1 week. She also recommends obtaining a CT of the abdomen due to the patient's history of SBO. She states that if the patient needs to be admitted, we can contact the [facility] transfer line and inform them she is aware of the patient's condition and they will help facilitate admission. Her direct line is [phone] <DONTA Jones - Last Filed: 11/27/21 18:03> Time: 15:37 <DONTA Jones Last Filed: 11/27/21 18:03> Medical Decision Making MDM Narrative Medical decision making narrative: Patient is a 66 year old female presenting to the emergency department today with a sore throat, nausea, and vomiting. Patient's physical exam showed a mild erythematous posterior pharynx but was otherwise unremarkable. Patient's blood work showed a decreased platelt count at 15,000. Patient's head CT showed no acute process. Patient's abdominal CT showed chronic ascites but no new findings. Patient's soft tissue neck CT is pending. I believe the patient to have a viral illness. I do not suspect the patient to have any acute bleeding or bacterial infection/sepsis. Patient's platelet count is low secondary to chemo drug use. I spoke to the patient's oncologist, Dr. Irina Burks, who recommended the patient have a platelet transfusion and if the rest of her tests are negative, she can be discharged with instructions to hold her chemo medication and her office will follow up for weekly platelet counts. I explained my physical exam findings as well as all test results to the patient. I answered all questions asked by the patient. Patient is currently awaiting platelet transfusion and as long as that goes smoothly and the patient's CT soft tissue neck is normal, patient is to be discharged with instructions to hold her chemo medication and follow up with Dr. Burks's office. Patient signed out to Isabelle Amaral PA-C pending imaging and successful transfusion. <DONTA Joens - Last Filed: 11/27/21 18:03> Differential Diagnosis Differential Diagnosis: viral illness, decreased platelets secondary to chemo medication <DONTA Jones Last Filed: 11/27/21 18:03> Medical Records Medical records reviewed: Yes I reviewed the patient's medical records. <DONTA Jones - Last Filed: 11/27/21 18:03> Lab Data Lab results reviewed: Yes I reviewed the patient's lab results. <DONTA Jones - Last Filed: 11/27/21 18:03> Result diagrams: : 11/28/21 01:02 11/27/21 15:09 <DONTA Jones - Last Filed: 11/27/21 18:03> Labs: Lab Results 11/27/21 11/27/21 11/27/21 Range/Units 11:28 11:28 14:29 WBC 8.9 (4.8-10.8) X10*3/uL RBC 2.95 L (4.20-5.50) X10*6/uL Hgb 9.5 L (12.0-16.0) g/dl Hct 29.4 L (37.0-47.0) % MCV 99.7 H (80.0-98.0) fL MCH 32.2 (27.0-33.0) pg MCHC 32.3 (31.0-35.0) g/dl RDW 16.0 (11.0-16.0) % Plt Count 15 L* D (160-400) X10*3/uL MPV 10.7 (9.4-12.3) fL Immature Gran % (Auto) 0.2 (0.0-0.4) % Neut % (Auto) 49.7 (45-73) % Lymph % (Auto) 45.4 H (20-40) % Lewis % (Auto) 3.5 (2-11) % Eos % (Auto) 1.0 (0-4) % Baso % (Auto) 0.2 (0-2) % Lymph # (Auto) 4.0 (1.2-4.9) X10*3/uL Lewis # (Auto) 0.3 (0.1-1.2) X10*3/uL Eos # (Auto) 0.1 (0.0-0.4) X10*3/uL Baso # (Auto) 0.0 (0.0-0.2) X10*3/uL Abs Immat Gran (auto) 0.02 (0.00-0.03) X10*3/uL Absolute Neuts (auto) 4.4 (2.0-8.3) x10*3/uL Absolute Nucleated RBC 0.000 (0.0-0.012) X10*3/uL Nucleated RBC % (auto) 0.0 (0.0-0.2) /100WBC Plt Count ,Citrate (150-310) X10*3/uL Smear Tech's Comments Sodium (135-145) mmol/L Potassium (3.3-5.1) mmol/L Chloride (96-108) mmol/L Carbon Dioxide (22-29) mmol/L Anion Gap (12-20) BUN (9-16) mg/dL Creatinine (0.5-1.4) mg/dL Estim Creat Clear Calc Estimated GFR Random Glucose (60-115) mg/dL Lactic Acid (0.5-2.0) mmol/L Calcium (8.4-10.2) mg/dL Magnesium (1.6-2.6) mg/dL Total Bilirubin (0.0-1.0) mg/dL AST (5-31) U/L ALT (0-31) U/L Alkaline Phosphatase (39-117) U/L Total Protein (6.5-8.0) g/dL Albumin (3.5-5.0) g/dL COVID-19 (RAJESH) Negative (Negative) COVID-19 Clin Com See Note S. pyogenes GrpA TARA Negative (Negative) Blood Type Antibody Screen 11/27/21 11/27/21 11/27/21 Range/Units 14:29 15:09 16:44 WBC (4.8-10.8) X10*3/uL RBC (4.20-5.50) X10*6/uL Hgb (12.0-16.0) g/dl Hct (37.0-47.0) % MCV (80.0-98.0) fL MCH (27.0-33.0) pg MCHC (31.0-35.0) g/dl RDW (11.0-16.0) % Plt Count (160-400) X10*3/uL MPV (9.4-12.3) fL Immature Gran % (Auto) (0.0-0.4) % Neut % (Auto) (45-73) % Lymph % (Auto) (20-40) % Lewis % (Auto) (2-11) % Eos % (Auto) (0-4) % Baso % (Auto) (0-2) % Lymph # (Auto) (1.2-4.9) X10*3/uL Lewis # (Auto) (0.1-1.2) X10*3/uL Eos # (Auto) (0.0-0.4) X10*3/uL Baso # (Auto) (0.0-0.2) X10*3/uL Abs Immat Gran (auto) (0.00-0.03) X10*3/uL Absolute Neuts (auto) (2.0-8.3) x10*3/uL Absolute Nucleated RBC (0.0-0.012) X10*3/uL Nucleated RBC % (auto) (0.0-0.2) /100WBC Plt Count ,Citrate (150-310) X10*3/uL Smear Tech's Comments Sodium 144 (135-145) mmol/L Potassium 3.9 D (3.3-5.1) mmol/L Chloride 106 (96-108) mmol/L Carbon Dioxide 26 (22-29) mmol/L Anion Gap 16 (12-20) BUN 31 H (9-16) mg/dL Creatinine 1.98 H (0.5-1.4) mg/dL Estim Creat Clear Calc 28.7 Estimated GFR 25 Random Glucose 87 (60-115) mg/dL Lactic Acid 1.4 (0.5-2.0) mmol/L Calcium 9.4 (8.4-10.2) mg/dL Magnesium 1.8 (1.6-2.6) mg/dL Total Bilirubin 0.3 (0.0-1.0) mg/dL AST 25 (5-31) U/L ALT 18 (0-31) U/L Alkaline Phosphatase 91 D (39-117) U/L Total Protein 7.5 (6.5-8.0) g/dL Albumin 4.3 (3.5-5.0) g/dL COVID-19 (RAJESH) (Negative) COVID-19 Clin Com S. pyogenes GrpA TARA (Negative) Blood Type B Positive Antibody Screen NEGATIVE 11/28/21 11/28/21 Range/Units 01:02 02:19 WBC 7.7 (4.8-10.8) X10*3/uL RBC 2.57 L (4.20-5.50) X10*6/uL Hgb 8.4 L (12.0-16.0) g/dl Hct 26.2 L (37.0-47.0) % MCV 101.9 H (80.0-98.0) fL MCH 32.7 (27.0-33.0) pg MCHC 32.1 (31.0-35.0) g/dl RDW 16.1 H (11.0-16.0) % Plt Count Not Reportable (160-400) X10*3/uL MPV Not Reportable (9.4-12.3) fL Immature Gran % (Auto) 0.3 (0.0-0.4) % Neut % (Auto) 60.4 (45-73) % Lymph % (Auto) 35.5 (20-40) % Lewis % (Auto) 2.7 (2-11) % Eos % (Auto) 0.8 (0-4) % Baso % (Auto) 0.3 (0-2) % Lymph # (Auto) 2.7 (1.2-4.9) X10*3/uL Lewis # (Auto) 0.2 (0.1-1.2) X10*3/uL Eos # (Auto) 0.1 (0.0-0.4) X10*3/uL Baso # (Auto) 0.0 (0.0-0.2) X10*3/uL Abs Immat Gran (auto) 0.02 (0.00-0.03) X10*3/uL Absolute Neuts (auto) 4.6 (2.0-8.3) x10*3/uL Absolute Nucleated RBC 0.000 (0.0-0.012) X10*3/uL Nucleated RBC % (auto) 0.0 (0.0-0.2) /100WBC Plt Count ,Citrate 51 L (150-310) X10*3/uL Smear Tech's Comments VERIFIED Sodium (135-145) mmol/L Potassium (3.3-5.1) mmol/L Chloride (96-108) mmol/L Carbon Dioxide (22-29) mmol/L Anion Gap (12-20) BUN (9-16) mg/dL Creatinine (0.5-1.4) mg/dL Estim Creat Clear Calc Estimated GFR Random Glucose (60-115) mg/dL Lactic Acid (0.5-2.0) mmol/L Calcium (8.4-10.2) mg/dL Magnesium (1.6-2.6) mg/dL Total Bilirubin (0.0-1.0) mg/dL AST (5-31) U/L ALT (0-31) U/L Alkaline Phosphatase (39-117) U/L Total Protein (6.5-8.0) g/dL Albumin (3.5-5.0) g/dL COVID-19 (RAJESH) (Negative) COVID-19 Clin Com S. pyogenes GrpA TARA (Negative) Blood Type Antibody Screen <DONTA Jones - Last Filed: 11/27/21 18:03> Lab Results 11/27/21 11/27/21 11/27/21 Range/Units 11:28 11:28 14:29 WBC 8.9 (4.8-10.8) X10*3/uL RBC 2.95 L (4.20-5.50) X10*6/uL Hgb 9.5 L (12.0-16.0) g/dl Hct 29.4 L (37.0-47.0) % MCV 99.7 H (80.0-98.0) fL MCH 32.2 (27.0-33.0) pg MCHC 32.3 (31.0-35.0) g/dl RDW 16.0 (11.0-16.0) % Plt Count 15 L* D (160-400) X10*3/uL MPV 10.7 (9.4-12.3) fL Immature Gran % (Auto) 0.2 (0.0-0.4) % Neut % (Auto) 49.7 (45-73) % Lymph % (Auto) 45.4 H (20-40) % Lewis % (Auto) 3.5 (2-11) % Eos % (Auto) 1.0 (0-4) % Baso % (Auto) 0.2 (0-2) % Lymph # (Auto) 4.0 (1.2-4.9) X10*3/uL Lewis # (Auto) 0.3 (0.1-1.2) X10*3/uL Eos # (Auto) 0.1 (0.0-0.4) X10*3/uL Baso # (Auto) 0.0 (0.0-0.2) X10*3/uL Abs Immat Gran (auto) 0.02 (0.00-0.03) X10*3/uL Absolute Neuts (auto) 4.4 (2.0-8.3) x10*3/uL Absolute Nucleated RBC 0.000 (0.0-0.012) X10*3/uL Nucleated RBC % (auto) 0.0 (0.0-0.2) /100WBC Plt Count ,Citrate (150-310) X10*3/uL Smear Tech's Comments Sodium (135-145) mmol/L Potassium (3.3-5.1) mmol/L Chloride (96-108) mmol/L Carbon Dioxide (22-29) mmol/L Anion Gap (12-20) BUN (9-16) mg/dL Creatinine (0.5-1.4) mg/dL Estim Creat Clear Calc Estimated GFR Random Glucose (60-115) mg/dL Lactic Acid (0.5-2.0) mmol/L Calcium (8.4-10.2) mg/dL Magnesium (1.6-2.6) mg/dL Total Bilirubin (0.0-1.0) mg/dL AST (5-31) U/L ALT (0-31) U/L Alkaline Phosphatase (39-117) U/L Total Protein (6.5-8.0) g/dL Albumin (3.5-5.0) g/dL COVID-19 (RAJESH) Negative (Negative) COVID-19 Clin Com See Note S. pyogenes GrpA TARA Negative (Negative) Blood Type Antibody Screen 08/17/22 08/17/22 08/17/22 Range/Units 14:29 15:09 16:44 WBC (4.8-10.8) X10*3/uL RBC (4.20-5.50) X10*6/uL Hgb (12.0-16.0) g/dl Hct (37.0-47.0) % MCV (80.0-98.0) fL MCH (27.0-33.0) pg MCHC (31.0-35.0) g/dl RDW (11.0-16.0) % Plt Count (160-400) X10*3/uL MPV (9.4-12.3) fL Immature Gran % (Auto) (0.0-0.4) % Neut % (Auto) (45-73) % Lymph % (Auto) (20-40) % Lewis % (Auto) (2-11) % Eos % (Auto) (0-4) % Baso % (Auto) (0-2) % Lymph # (Auto) (1.2-4.9) X10*3/uL Lewis # (Auto) (0.1-1.2) X10*3/uL Eos # (Auto) (0.0-0.4) X10*3/uL Baso # (Auto) (0.0-0.2) X10*3/uL Abs Immat Gran (auto) (0.00-0.03) X10*3/uL Absolute Neuts (auto) (2.0-8.3) x10*3/uL Absolute Nucleated RBC (0.0-0.012) X10*3/uL Nucleated RBC % (auto) (0.0-0.2) /100WBC Plt Count ,Citrate (150-310) X10*3/uL Smear Tech's Comments Sodium 144 (135-145) mmol/L Potassium 3.9 D (3.3-5.1) mmol/L Chloride 106 (96-108) mmol/L Carbon Dioxide 26 (22-29) mmol/L Anion Gap 16 (12-20) BUN 31 H (9-16) mg/dL Creatinine 1.98 H (0.5-1.4) mg/dL Estim Creat Clear Calc 28.7 Estimated GFR 25 Random Glucose 87 (60-115) mg/dL Lactic Acid 1.4 (0.5-2.0) mmol/L Calcium 9.4 (8.4-10.2) mg/dL Magnesium 1.8 (1.6-2.6) mg/dL Total Bilirubin 0.3 (0.0-1.0) mg/dL AST 25 (5-31) U/L ALT 18 (0-31) U/L Alkaline Phosphatase 91 D (39-117) U/L Total Protein 7.5 (6.5-8.0) g/dL Albumin 4.3 (3.5-5.0) g/dL COVID-19 (RAJESH) (Negative) COVID-19 Clin Com S. pyogenes GrpA TARA (Negative) Blood Type B Positive Antibody Screen NEGATIVE 11/28/21 11/28/21 Range/Units 01:02 02:19 WBC 7.7 (4.8-10.8) X10*3/uL RBC 2.57 L (4.20-5.50) X10*6/uL Hgb 8.4 L (12.0-16.0) g/dl Hct 26.2 L (37.0-47.0) % MCV 101.9 H (80.0-98.0) fL MCH 32.7 (27.0-33.0) pg MCHC 32.1 (31.0-35.0) g/dl RDW 16.1 H (11.0-16.0) % Plt Count Not Reportable (160-400) X10*3/uL MPV Not Reportable (9.4-12.3) fL Immature Gran % (Auto) 0.3 (0.0-0.4) % Neut % (Auto) 60.4 (45-73) % Lymph % (Auto) 35.5 (20-40) % Lewis % (Auto) 2.7 (2-11) % Eos % (Auto) 0.8 (0-4) % Baso % (Auto) 0.3 (0-2) % Lymph # (Auto) 2.7 (1.2-4.9) X10*3/uL Lewis # (Auto) 0.2 (0.1-1.2) X10*3/uL Eos # (Auto) 0.1 (0.0-0.4) X10*3/uL Baso # (Auto) 0.0 (0.0-0.2) X10*3/uL Abs Immat Gran (auto) 0.02 (0.00-0.03) X10*3/uL Absolute Neuts (auto) 4.6 (2.0-8.3) x10*3/uL Absolute Nucleated RBC 0.000 (0.0-0.012) X10*3/uL Nucleated RBC % (auto) 0.0 (0.0-0.2) /100WBC Plt Count ,Citrate 51 L (150-310) X10*3/uL Smear Tech's Comments VERIFIED Sodium (135-145) mmol/L Potassium (3.3-5.1) mmol/L Chloride (96-108) mmol/L Carbon Dioxide (22-29) mmol/L Anion Gap (12-20) BUN (9-16) mg/dL Creatinine (0.5-1.4) mg/dL Estim Creat Clear Calc Estimated GFR Random Glucose (60-115) mg/dL Lactic Acid (0.5-2.0) mmol/L Calcium (8.4-10.2) mg/dL Magnesium (1.6-2.6) mg/dL Total Bilirubin (0.0-1.0) mg/dL AST (5-31) U/L ALT (0-31) U/L Alkaline Phosphatase (39-117) U/L Total Protein (6.5-8.0) g/dL Albumin (3.5-5.0) g/dL COVID-19 (RAJESH) (Negative) COVID-19 Clin Com S. pyogenes GrpA TARA (Negative) Blood Type Antibody Screen <DONTA Moss - Last Filed: 11/28/21 02:44> Imaging Data CT scan - head: Attestation: I personally reviewed and interpreted this imaging study as follows: <DONTA Jones - Last Filed: 11/27/21 18:03> My impression: No acute process. <DONTA Jones - Last Filed: 11/27/21 18:03> Radiologist's impression: EXAMINATION: CT HEAD WITHOUT CONTRAST CLINICAL INFORMATION: Headache.? COMPARISON: None TECHNIQUE: Contiguous axial imaging was performed from the skull base to vertex without intravenous administration of contrast. Coronal and sagittal reformatted images were obtained. This CT examination was performed using dose optimization techniques as appropriate, variously including the following: *Automated exposure control *Adjustment of mA and/or kV according to patient size (this includes techniques or standardized protocols for targeted exams where dose is matched to indication/reason for exam; i.e. extremities or head) *Use of iterative reconstruction technique DLP: 692.30 mGy-cm FINDINGS: There is no evidence of acute intracranial hemorrhage or territorial infarction. No abnormal mass effect or midline shift is seen. Hernandez to white matter differentiation is well preserved. No extra-axial fluid collections are identified. The ventricles are normal in size. There is no abnormal attenuation within the brain parenchyma. The osseous structures and soft tissues are normal. The visualized paranasal sinuses show a retention cyst versus inflammatory polyp at the base of the right maxillary sinus measuring 1.8 cm (image 31, series 12). The remainder the paranasal sinuses are clear. The mastoid air cells are clear. CT/CT head/brain wo con IMPRESSION: No acute intracranial pathology. Dictated By: Saul Ji MD Signed By: Electronically signed by Saul Ji MD 11/27/21 1658 <DONTA Jones - Last Filed: 11/27/21 18:03> CT scan - abdomen: Attestation: I personally reviewed and interpreted this imaging study as follows: <DONTA Jones - Last Filed: 11/27/21 18:03> My impression: Ascites. <DONTA Jones - Last Filed: 11/27/21 18:03> Radiologist's impression: EXAMINATION: CT ABDOMEN AND PELVIS WITHOUT CONTRAST? CLINICAL INFORMATION: Abdominal pain? COMPARISON: CT abdomen pelvis 04/29/2021? TECHNIQUE: Multidetector volumetric imaging was performed from the superior aspect of the liver through the pubic symphysis. Sagittal and coronal reformatted images were obtained on the technologist's workstation.? This CT examination was performed using dose optimization techniques as appropriate, variously including the following: *Automated exposure control *Adjustment of mA and/or kV according to patient size (this includes techniques or standardized protocols for targeted exams where dose is matched to indication/reason for exam; i.e. extremities or head) *Use of iterative reconstruction technique DLP: 1834 mGy-cm FINDINGS: LUNG BASES: The visualized lung bases are unremarkable.? LIVER, GALLBLADDER, AND BILIARY TREE: A large amount of ascites is again seen throughout the abdomen. The liver is normal in size but with a questionable nodular border raising the possibility cirrhosis. No focal hepatic lesion or biliary ductal dilatation is present. The gallbladder is unremarkable with no evidence of radiopaque gallstones, gallbladder wall thickening, or obvious pericholecystic inflammatory changes.? PANCREAS: Unremarkable.? SPLEEN: Unremarkable.? ADRENAL GLANDS: Mildly thickened? KIDNEYS AND URETERS: The kidneys are normal in size, shape, and attenuation. No hydronephrosis, hydroureter, or calculi seen. No perinephric stranding. ? BLADDER: Unremarkable.? GASTROINTESTINAL TRACT: The small and large bowel are unremarkable. Small bowel dilatation seen previously is no longer present. The appendix is probably normal but there is no evidence of appendicitis. There is continued presence of omental carcinomatosis with mass like densities in the omentum and mesentery (for example see right lower quadrant (21:49), just above the gallbladder (21:29) and adjacent to the descending colon.) ABDOMINAL WALL: No significant hernia is appreciated.? LYMPH NODES: No retroperitoneal gross lymphadenopathy. Small mesenteric lymph nodes are seen VASCULAR: Unremarkable. PELVIC VISCERA: Surgically removed? OSSEOUS STRUCTURES: Unremarkable.? CT/CT abdomen pelvis wo con IMPRESSION: No significant interval change since the prior study with large volume ascites and evidence of peritoneal carcinomatosis. ? Fleischner guidelines were followed. Dictated By: Raúl Benitez MD Signed By: Electronically signed by Raúl Benitez MD 11/27/21 0987 <DONTA Jones - Last Filed: 11/27/21 18:03> Critical Care Time Critical Care Time Critical Care Time: Yes <DONTA Jones - Last Filed: 11/27/21 18:03> Total Critical Care Time: 45 <DONTA Jones - Last Filed: 11/27/21 18:03> Attestation: I spent 45 minutes of Critical Care Time with this patient. This does not include time spent on separately reported billable procedures. <DONTA Jones - Last Filed: 11/27/21 18:03> I spent 45 minutes of Critical Care Time with this patient. This does not include time spent on separately reported billable procedures. I attest to this time spent taking care of the patient, obtaining history, physical, reviewing labs, imaging, speaking to my attending, speaking to specialist. <DONTA Moss - Last Filed: 11/28/21 02:44> Discharge Plan Discharge Clinical Impression: Decreased platelet count, Ovarian cancer, Viral illness <DONTA Jones - Last Filed: 11/27/21 18:03> Patient Disposition: Home, Self-Care <DONTA Jones - Last Filed: 11/27/21 18:03> Instructions: Viral Syndrome (ED) <DONTA Jones - Last Filed: 11/27/21 18:03> Additional Instructions: STOP taking your chemo medication until Dr. Burks tells you otherwise. Call Dr. Burks's office first thing tomorrow to set up an appointment for follow up platelet counts. Follow up with your primary care provider. Return to the emergency department immediately if your symptoms worsen or if you develop any dizziness, shortness of breath, difficulty breathing, chest pain, blurry vision, loss of vision, nausea, vomiting, abdominal pain, fever, chills, back pain, or any other complaints. Follow-up with your primary care provider this week. Return to the emergency department with new or worsening symptoms. Such as fevers, chills, chest pain, shortness of breath, nausea, vomiting, dizziness, headache, vision changes, lethargy In case of emergency call 911 DEJE de kourtney bush medicamento de quimioterapia hasta que el Dr. Burks le indique lo contrario. Llame a la oficina del Dr. Burks ma?nallely a primera hora para programar peter karie para el seguimiento de los recuentos de plaquetas. Jair un seguimiento con bush proveedor de atenci?n primaria. Regrese al departamento de emergencias de inmediato si jhon s?ntomas empeoran o si presenta mareos, falta de aire, dificultad para respirar, dolor de pecho, visi?n borrosa, p?rdida de la visi?n, n?useas, v?mitos, dolor abdominal, fiebre, escalofr?os, dolor de espalda o cualquier otras quejas. Seguimiento con bush proveedor de atenci?n primaria esta semana. Regrese al departamento de emergencias con s?ntomas nuevos o que empeoran. [place] fiebre, escalofr?os, dolor de pecho, dificultad para respirar, n?useas, v?mitos, mareos, dolor de vandana, cambios en la visi?n, letargo En josefina de emergencia llama al 911 CT/CT soft tissue neck wo con IMPRESSION: *? No acute imaging findings compared to the prior neck CT from 09/27/2018. *? No evidence of soft tissue mass or lymphadenopathy in the neck. ? CT/CT head/brain wo con IMPRESSION: No acute intracranial pathology. CT/CT abdomen pelvis wo con IMPRESSION: No significant interval change since the prior study with large volume ascites and evidence of peritoneal carcinomatosis. ? Fleischner guidelines were followed. <DONTA Jones - Last Filed: 11/27/21 18:03> Prescriptions: No Action metformin 500 mg Tablet 500 mg BIDWM insulin glargine 100 unit/mL (3 mL) Insulin Pen 35 unit SUBCUT BEDTIME atorvastatin 40 mg Tablet 40 mg PO DAILY hydrochlorothiazide 25 mg Tablet 25 mg PO DAILY lisinopril 40 mg Tablet 40 mg PO DAILY ondansetron HCl 4 mg tablet 2 tab PO BID PRN (Reason: vomiting) ergocalciferol (vitamin D2) 1,250 mcg (50,000 unit) capsule 1 cap PO WE albuterol sulfate [ProAir HFA] 90 mcg/actuation HFA aerosol inhaler 2 puff PO Q4-6H PRN (Reason: Shortness Of Breath) <DONTA Jones - Last Filed: 11/27/21 18:03> Referrals: Nallely Chicas MD [Primary Care Provider] - <DONTA Jones - Last Filed: 11/27/21 18:03> Stand Alone Forms: Work/School Release <DONTA Jones - Last Filed: 11/27/21 18:03> Print Language: Romanian <DONTA Jones - Last Filed: 11/27/21 18:03>
[2021-11-27 14:34] LABS: MANUAL DIFF FLAG NO
[2021-11-27 14:47] LABS: Lactic Acid 1.4 mmol/L (0.5-2.0)
[2021-11-27 14:50] LABS: Basophils Percent Auto 0.2 % (0-2); Eosinophils Absolute Auto 0.1 X10*3/uL (0.0-0.4); Hematocrit 29.4 % (37.0-47.0); Hemoglobin 9.5 g/dl (12.0-16.0); Imm Gran Abs Auto 0.02 X10*3/uL (0.00-0.03); Imm Gran Pct Auto 0.2 % (0.0-0.4); Lymphocytes Percent Auto 45.4 % (20-40); Mean Corpuscular HGB Conc 32.3 g/dl (31.0-35.0); Mean Corpuscular Hemoglobin 32.2 pg (27.0-33.0); Mean Corpuscular Volume 99.7 fL (80.0-98.0); Mean Platelet Volume 10.7 fL (9.4-12.3); Monocytes Absolute Auto 0.3 X10*3/uL (0.1-1.2); Monocytes Percent Auto 3.5 % (2-11); Neutrophils Absolute Auto 4.4 x10*3/uL (2.0-8.3); Neutrophils Percent Auto 49.7 % (45-73); Red Blood Count 2.95 X10*6/uL (4.20-5.50); White Blood Count 8.9 X10*3/uL (4.8-10.8)
[2021-11-27 15:08] LABS: Platelet Count 15 X10*3/uL (160-400)
[2021-11-27 15:36] LABS: Alanine Aminotransferase 18 U/L (0-31); Albumin Level 4.3 g/dL (3.5-5.0); Alkaline Phosphatase 91 U/L (39-117); Anion Gap 16 (12-20); Aspartate Amino Transferase 25 U/L (5-31); Bilirubin Total 0.3 mg/dL (0.0-1.0); Blood Urea Nitrogen 31 mg/dL (9-16); Calcium 9.4 mg/dL (8.4-10.2); Carbon Dioxide 26 mmol/L (22-29); Chloride 106 mmol/L (96-108); Creatinine Clr Calc Pharmacy 28.7; Estimated Glomerular Filt Rate 25; Glucose Random 87 mg/dL (60-115); Magnesium 1.8 mg/dL (1.6-2.6); Potassium 3.9 mmol/L (3.3-5.1); Sodium 144 mmol/L (135-145); Total Protein 7.5 g/dL (6.5-8.0)
[2021-11-27] MEDS: Morphine Sulfate 2 MG/ML CARTRIDGE IVPUSH (23:12)
[2021-11-28 01:08] LABS: Basophils Percent Auto 0.3 % (0-2); Hemoglobin 8.4 g/dl (12.0-16.0); Imm Gran Abs Auto 0.02 X10*3/uL (0.00-0.03); Imm Gran Pct Auto 0.3 % (0.0-0.4); MANUAL DIFF FLAG SCAN; Mean Corpuscular Volume 101.9 fL (80.0-98.0); Neutrophils Absolute Auto 4.6 x10*3/uL (2.0-8.3); PLT CLUMP 1; Red Cell Distribution Width 16.1 % (11.0-16.0); SCAN SMEAR FLAG 1
[2021-11-28 01:10] LABS: Eosinophils Absolute Auto 0.1 X10*3/uL (0.0-0.4); Eosinophils Percent Auto 0.8 % (0-4); Hematocrit 26.2 % (37.0-47.0); Lymphocytes Absolute Auto 2.7 X10*3/uL (1.2-4.9); Lymphocytes Percent Auto 35.5 % (20-40); Mean Corpuscular HGB Conc 32.1 g/dl (31.0-35.0); Mean Corpuscular Hemoglobin 32.7 pg (27.0-33.0); Monocytes Absolute Auto 0.2 X10*3/uL (0.1-1.2); Monocytes Percent Auto 2.7 % (2-11); Neutrophils Percent Auto 60.4 % (45-73); Red Blood Count 2.57 X10*6/uL (4.20-5.50)
[2021-11-28 01:11] LABS: White Blood Count 7.7 X10*3/uL (4.8-10.8)
[2021-11-28 01:46] LABS: SLIDE REVIEW VERIFIED
[2021-11-28 02:30] LABS: Platelet Count (Citrate) 51 X10*3/uL (150-310)
[2021-11-28 02:56] LABS: Appearance Urine Hazy; Color Urine Yellow; Glucose Urine UA Negative (Negative); Leukocyte Esterase Urine Small (1+) (Negative); Nitrite Urine Negative (Negative); Urine Blood Trace (Negative); Urine Ketones Negative (Negative); Urine Protein Negative (Neg-Trace)
[2021-11-28 03:09] LABS: Bacteria Urine 1+ (None Seen); Hyaline Casts Urine 0-2 /LPF (0-2); RBC Urine 0-2 /HPF (0-2); UACC Culture Trigger YES
[2021-11-28 03:31] VITALS: BP 137/73; PULSE 81; RESP 14; TEMP 36.1; O2SAT 95
== END 2021-11-28 03:33 | disposition home or self-care (01) ==
PROVIDERS: Physician Assistant; Physician Assistant Medical; Emergency Provider Emergency Medicine Emergency Medical Services; PCP Internal Medicine
DX: B34.9 Viral infection, unspecified (principal); D69.6 Thrombocytopenia, unspecified; C56.9 Malignant neoplasm of unspecified ovary; Z20.822 Contact with and (suspected) exposure to COVID-19; R53.1 Weakness; J02.9 Acute pharyngitis, unspecified; E11.9 Type 2 diabetes mellitus without complications; I10 Essential (primary) hypertension; E78.5 Hyperlipidemia, unspecified; Z90.710 Acquired absence of both cervix and uterus; Z92.21 Personal history of antineoplastic chemotherapy; Z79.02 Long term (current) use of antithrombotics/antiplatelets; Z79.899 Other long term (current) drug therapy; Z79.4 Long term (current) use of insulin
CPT/HCPCS: 36415; 36430; 70450; 70490; 74176; 80053; 81001; 81003; 83605; 83735; 85025; 86850; 86900; 86901; 87040; 87086; 87635; 87651; 96374; 99284; 99285; J2270; P9073

== ENCOUNTER 2023-09-21 09:26 | Outpatient (REF) | payer MEDICAID, SELFPAY ==
[2023-09-21 12:25] LABS: Anion Gap 20 (12-20); Blood Urea Nitrogen 14 mg/dL (9-16); Calcium 10.2 mg/dL (8.4-10.2); Carbon Dioxide 23 mmol/L (22-29); Chloride 105 mmol/L (96-108); Cholesterol 130 mg/dL (<200); Estimated Glomerular Filt Rate 47; Glucose Random 102 mg/dL (60-115); HDL Cholesterol 55 mg/dL (>40); LDL Cholesterol Calculated 62 mg/dL (<100); Potassium 3.7 mmol/L (3.3-5.1); Sodium 144 mmol/L (135-145); Triglycerides 66 mg/dL (<150)
[2023-09-21 13:48] LABS: Reflex LDLD? No
== END 2023-09-21 09:27 | disposition home or self-care (01) ==
LOC: HO.HHCL 09:26
PROVIDERS: Visit Provider Internal Medicine
DX: E11.9 Type 2 diabetes mellitus without complications (principal); Z79.4 Long term (current) use of insulin
CPT/HCPCS: 36415; 80048; 80061

== ENCOUNTER 2024-06-23 14:20 | Emergency (ER) | payer MEDICARE, MEDICAID, SELFPAY ==
[2024-06-23 15:56] VITALS: BP 119/44; PULSE 81; RESP 16; TEMP 36.7; O2SAT 100; BMI 24.2
--- NOTE | 2024-06-23 15:59 | ED.GENADULT ---
HPI - General Adult General Chief complaint: Recheck/Abnormal Lab/Rx Stated complaint: Low BP Time Seen by Provider: 06/23/24 17:53 Source: patient, family and deaf interpreter Mode of arrival: ambulatory Limitations: no limitations History of Present Illness ED Provider: DR. Driscoll HPI narrative: A 69-year-old [place]an-speaking female with past medical history significant for ovarian cancer with metastases and abdominal carcinomatosis, patient has peritoneal catheter placed for ascites drainage done by [facility] last week, patient has no complaint today when VNA went to check on the patient found her to be hypotensive and blood draining from the peritoneal catheter. No nausea, no vomiting, no abdominal pain, no headache, no blurry vision. Related Data Home Medications ?Medication ?Instructions ?Recorded ?Confirmed metformin 500 mg tablet 500 mg BIDWM 03/10/20 04/29/21 insulin glargine 100 unit/mL (3 35 unit subcut BEDTIME 04/30/20 04/29/21 mL) subcutaneous pen atorvastatin 40 mg tablet 40 mg PO DAILY 05/01/20 04/29/21 hydrochlorothiazide 25 mg tablet 25 mg PO DAILY 05/01/20 04/29/21 lisinopril 40 mg tablet 40 mg PO DAILY 05/01/20 04/29/21 albuterol sulfate 90 mcg/actuation 2 puff PO Q4-6H PRN Shortness Of 03/05/21 04/29/21 aerosol inhaler (ProAir HFA) Breath ergocalciferol (vitamin D2) 1,250 1 cap PO WE 03/05/21 04/29/21 mcg (50,000 unit) capsule ondansetron HCl 4 mg tablet 2 tab PO BID PRN vomiting 03/05/21 04/29/21 Allergies Allergy/AdvReac Type Severity Reaction Status Date / Time No Known Allergies Allergy Verified 06/23/24 15:57 Review of Systems Review of Systems: All other systems are reviewed and are negative Constitutional: Reports as per HPI and Reports no additional constitutional complaints Eyes: Reports as per HPI and Reports no additional eye complaints Reports system reviewed and no additional complaints, except as documented Cardiovascular: Reports as per HPI and Reports no additional cardiovascular complaints Respiratory: Reports as per HPI and Reports no additional respiratory complaints Gastrointestinal: Reports as per HPI and Reports no additional gastrointestinal complaints Genitourinary: Reports no additional female genitourinary complaints Musculoskeletal: Reports no additional musculoskeletal complaints Skin/Breast: Reports system reviewed and no additional complaints, except as docu Psychiatric: Reports no additional psychiatric complaints Endocrine: Reports no additional endocrine complaints Hematologic/Lymphatic: Reports no additional hematologic/lymphatic complaints Allergic/Immunologic: Reports no additional allergic/immunologic complaints Reports system reviewed and no additional complaints, except as documented and Reports Abnormal speech present FOR[facility]LY [facility], [facility] Past Medical History Medical History Ovarian cancer Abdominal carcinomatosis Gastric cancer Hyperlipidemia Hypertension Asthma Diabetes Surgical History S/P total hysterectomy (~05/2020) H/O section Social History Social History Household Members: Significant Other and Family Housing: Apartment Do you presently have visiting nurse or other home services: No Alcohol intake: never Patient Tobacco Use Status: Never used Tobacco Smoked in Last 30 Days: No Use of substances other than those prescribed or required for medical reasons: No Advance Directives: Yes Advance Directives on File: Yes Advance Directives Date on File: 03/06/21 Do you have a plan to hurt others: No Plan service: No Current occupational status: employed, unemployed and disabled Physical Exam ED Vital Signs: Vital Signs - 24 hr 06/23/24 15:56 06/23/24 20:06 06/23/24 20:16 Temperature 98.0 F 98.9 F 98.9 F Pulse Rate 81 76 76 Respiratory Rate 16 16 16 Blood Pressure 119/44 L 133/69 133/69 Pulse Oximetry 100 Oxygen Delivery Method Room Air 06/23/24 20:29 Temperature 98.3 F Pulse Rate 72 Respiratory Rate 16 Blood Pressure 123/64 Pulse Oximetry Oxygen Delivery Method BMI result Body Mass Index 24.2 Vital signs have been reviewed and appear to be correct. Blood pressure elevated. Heart rate normal. Respiratory rate normal. Temperature normal. Oxygen saturation normal. Appearance: Alert. Oriented X3. No acute distress. Head: Normal external exam. Normocephalic. Atraumatic. No [place]illo signs noted. No raccoon eyes noted Eyes: PERRLA. EOMI. Conjunctiva and sclera normal. Eyelids normal. ENT: TM's Normal. Pharynx normal. Uvula midline. Moist mucous membranes. No trismus noted. No drooling noted. No muffled voice noted. Neck: Normal inspection. Neck supple. FROM. No adenopathy. Thyroid Normal. No meningeal signs. No neck mass noted. CVS: Normal heart rate and rhythm. Heart sound normal. No murmurs noted. Pulses normal throughout. Respiratory: No respiratory distress. Painless inspiration. Breath sounds normal. No wheezes/rales/rhonchi noted. Chest nontender. No accessory muscle usage noted or decreased air movement noted. Abdomen: Soft and nontender. Peritoneal catheter in place with blood discharge. Bowel sounds normal in all 4 quadrants. No distention noted. No organomegaly noted. No visible injury noted. Back: No CVA tenderness. Full range of motion noted. Skin: Skin warm and dry. Normal skin color. Normal skin turgor. No rashes/lesions/lacerations noted. Extremities: No lower extremity edema. Extremities exhibit normal range of motion. Extremities nontender. Neuro: Oriented X 3. Cranial nerve exam: II-XII are grossly intact No motor deficit. No sensory deficit. Reflexes normal. Course Course Course Narrative: This is an RME: Additional HPI, ROS, PE not included below will be deferred to primary provider. RME assessment and note performed by: Skylar Staples PA-C This is a 72-[id number]-[place]an-speaking female who presents emergency department for evaluation of hypotension. Patient was seen at home by VNA, found to be hypotensive with a systolic in the 90s. Asymptomatic, feeling well. Blood pressure meds prior to being evaluated. Plan: Labs, further ER eval needed Reevaluation(s) Reevaluation #1: 69-year-old female with history of ovarian cancer and chronic ascites with recently placed peritoneal catheter that draining bright red blood, patient has a visiting VNA this morning patient was hypotensive, patient otherwise asymptomatic. Daughter at the bedside requesting patient to be transferred to [facility] for continuity of care, and for IR to take care of the peritoneal catheter ( IR is not available at the moment at [facility]). Will transfer the patient to [facility] accepted by . drop of H&H will give 1 unit of RBCs. Await for available bed at [facility]. Time: 21:05 Medical Decision Making Differential Diagnosis Differential Diagnoses: The differential diagnosis associated with the presentation includes ( Severe anemia, hypotension, peritoneal catheter complication.) Admission/Observation Consideration of admission/observation: Escalation of care including admission/observation considered Consult Healthcare Provider Management of the patient was discussed with: Sr. Operations Manager ( Dr. Curry) Lab Data MDM Lab Attestation statement: I reviewed the patient's lab results. 06/23/24 16:13 06/23/24 16:13 Labs: Lab Results 06/23/24 06/23/24 Range/Units 16:13 18:29 WBC 8.4 (4.8-10.8) X10*3/uL RBC 2.50 L (4.20-5.50) X10*6/uL Hgb 7.9 L (12.0-16.0) g/dl Hct 24.3 L (37.0-47.0) % MCV 97.2 (80.0-98.0) fL MCH 31.6 (27.0-33.0) pg MCHC 32.5 (31.0-35.0) g/dl RDW 18.1 H (11.0-16.0) % Plt Count 199 D (160-400) X10*3/uL MPV 8.8 L (9.4-12.3) fL Immature Gran % (Auto) 0.6 H (0.0-0.4) % Neut % (Auto) 60.9 (45-73) % Lymph % (Auto) 33.9 (20-40) % [place] % (Auto) 4.0 (2-11) % Eos % (Auto) 0.4 (0-4) % Baso % (Auto) 0.2 (0-2) % Lymph # (Auto) 2.9 (1.2-4.9) X10*3/uL [place] # (Auto) 0.3 (0.1-1.2) X10*3/uL Eos # (Auto) 0.0 (0.0-0.4) X10*3/uL Baso # (Auto) 0.0 (0.0-0.2) X10*3/uL Abs Immat Gran (auto) 0.05 H (0.00-0.03) X10*3/uL Absolute Neuts (auto) 5.1 (2.0-8.3) x10*3/uL Absolute Nucleated RBC 0.020 H (0.0-0.012) X10*3/uL Nucleated RBC % (auto) 0.2 (0.0-0.2) /100WBC Sodium 143 (135-145) mmol/L Potassium 3.3 (3.3-5.1) mmol/L Chloride 110 H (96-108) mmol/L Carbon Dioxide 26 (22-29) mmol/L Anion Gap 10 L (12-20) BUN 22 H (9-16) mg/dL Creatinine 0.93 (0.5-1.4) mg/dL Estim Creat Clear Calc 49.3 Estimated GFR 60 Random Glucose 129 H (60-115) mg/dL Calcium 8.8 D (8.4-10.2) mg/dL Magnesium 1.6 (1.6-2.6) mg/dL Total Bilirubin 0.4 (0.0-1.0) mg/dL Direct Bilirubin 0.2 (0.0-0.5) mg/dL AST 111 H (5-31) U/L ALT 45 H (0-31) U/L Alkaline Phosphatase 109 (39-117) U/L Troponin I High Sens < 2.7 (<3.5-17.0) ng/L Total Protein 6.8 (6.5-8.0) g/dL Albumin 2.6 L (3.5-5.0) g/dL Blood Type B Positive Antibody Screen NEGATIVE Crossmatch See Detail Discharge Plan Discharge Clinical Impression: Anemia, Hypotension Patient Disposition: [facility] Transfer Details: [facility] Prescriptions: No Action metformin 500 mg Tablet 500 mg BIDWM insulin glargine 100 unit/mL (3 mL) Insulin Pen 35 unit SUBCUT BEDTIME atorvastatin 40 mg Tablet 40 mg PO DAILY hydrochlorothiazide 25 mg Tablet 25 mg PO DAILY lisinopril 40 mg Tablet 40 mg PO DAILY ondansetron HCl 4 mg tablet 2 tab PO BID PRN (Reason: vomiting) ergocalciferol (vitamin D2) 1,250 mcg (50,000 unit) capsule 1 cap PO WE albuterol sulfate [ProAir HFA] 90 mcg/actuation HFA aerosol inhaler 2 puff PO Q4-6H PRN (Reason: Shortness Of Breath) Print Language: [place]an
[2024-06-23 16:19] LABS: MANUAL DIFF FLAG NO
[2024-06-23 16:27] LABS: Basophils Percent Auto 0.2 % (0-2); Eosinophils Percent Auto 0.4 % (0-4); Hematocrit 24.3 % (37.0-47.0); Hemoglobin 7.9 g/dl (12.0-16.0); Imm Gran Abs Auto 0.05 X10*3/uL (0.00-0.03); Imm Gran Pct Auto 0.6 % (0.0-0.4); Lymphocytes Absolute Auto 2.9 X10*3/uL (1.2-4.9); Lymphocytes Percent Auto 33.9 % (20-40); Mean Corpuscular HGB Conc 32.5 g/dl (31.0-35.0); Mean Corpuscular Hemoglobin 31.6 pg (27.0-33.0); Mean Corpuscular Volume 97.2 fL (80.0-98.0); Mean Platelet Volume 8.8 fL (9.4-12.3); Monocytes Absolute Auto 0.3 X10*3/uL (0.1-1.2); NRBC Pct Auto 0.2 /100WBC (0.0-0.2); Neutrophils Absolute Auto 5.1 x10*3/uL (2.0-8.3); Neutrophils Percent Auto 60.9 % (45-73); Platelet Count 199 X10*3/uL (160-400); Red Cell Distribution Width 18.1 % (11.0-16.0); White Blood Count 8.4 X10*3/uL (4.8-10.8)
[2024-06-23 16:45] LABS: Alanine Aminotransferase 45 U/L (0-31); Albumin Level 2.6 g/dL (3.5-5.0); Anion Gap 10 (12-20); Aspartate Amino Transferase 111 U/L (5-31); Bilirubin Direct 0.2 mg/dL (0.0-0.5); Bilirubin Total 0.4 mg/dL (0.0-1.0); Blood Urea Nitrogen 22 mg/dL (9-16); Calcium 8.8 mg/dL (8.4-10.2); Carbon Dioxide 26 mmol/L (22-29); Chloride 110 mmol/L (96-108); Creatinine Clr Calc Pharmacy 49.3; Estimated Glomerular Filt Rate 60; Glucose Random 129 mg/dL (60-115); Magnesium 1.6 mg/dL (1.6-2.6); Potassium 3.3 mmol/L (3.3-5.1); Sodium 143 mmol/L (135-145); Total Protein 6.8 g/dL (6.5-8.0); Troponin-I High Sensitivity < 2.7 ng/L (<3.5-17.0)
[2024-06-23 17:05] LABS: Alkaline Phosphatase 109 U/L (39-117)
[2024-06-23 20:06] VITALS: BP 133/69; PULSE 76; RESP 16; TEMP 37.2
[2024-06-23 20:16] VITALS: BP 133/69; PULSE 76; RESP 16; TEMP 37.2
[2024-06-23 20:29] VITALS: BP 123/64; PULSE 72; RESP 16; TEMP 36.8
[2024-06-23 22:27] VITALS: BP 125/64; PULSE 70; RESP 16; TEMP 36.9
[2024-06-23 22:43] VITALS: BP 130/64; PULSE 69; RESP 16; TEMP 36.9
--- NOTE | 2024-06-23 23:21 | PC.NURSE ---
assumed care of patient at this time. report received from Patricia OVALLE. per previous RN, patient is awaiting bed assignment at [facility].
[2024-06-24 01:30] VITALS: BP 143/63; PULSE 80; RESP 16; TEMP 36.8; O2SAT 100
[2024-06-24 01:32] LABS: Appearance Urine Cloudy; Color Urine Yellow; Glucose Urine UA Negative (Negative); Leukocyte Esterase Urine Negative (Negative); Nitrite Urine Negative (Negative); PH 5.5 (5.0-9.0); UMIC TRIGGER UACC YES; Urine Blood Negative (Negative); Urine Ketones Trace mg/dL (Negative); Urine Protein 30 (1+) mg/dL (Neg-Trace)
[2024-06-24 01:41] LABS: Bacteria Urine Trace (None Seen); RBC Urine 0-2 /HPF (0-2); WBC Urine 0-5 /HPF (0-5)
[2024-06-24 06:31] VITALS: BP 109/49; PULSE 75; RESP 16; O2SAT 98
[2024-06-24 07:44] VITALS: BP 127/68; PULSE 93; RESP 16; TEMP 37.1; O2SAT 98
--- NOTE | 2024-06-24 08:25 | PC.NURSE ---
Patient up to bedside to eat breakfast, assigned bed at [facility], daily [phone] [id number] [phone]
--- NOTE | 2024-06-24 08:31 | PC.NURSE ---
Attempt 1 for nurse to nurse, told nurse is in a patients room
[2024-06-24 09:31] VITALS: BP 129/57; PULSE 68; RESP 18; O2SAT 100
[2024-06-24 09:52] VITALS: BP 129/57; PULSE 68; RESP 18; TEMP 36.6; O2SAT 100
== END 2024-06-24 09:54 | disposition short-term general hospital (02) ==
PROVIDERS: Physician Assistant Medical; Emergency Provider Emergency Medicine; PCP Internal Medicine
DX: D64.9 Anemia, unspecified (principal); I95.9 Hypotension, unspecified; Z79.899 Other long term (current) drug therapy
CPT/HCPCS: 36415; 36430; 80048; 80076; 81001; 83735; 84484; 85025; 86850; 86900; 86901; 86923; 99285; P9016